=== PATIENT | female | born 1930 | race Caucasian/White ===

== ENCOUNTER 2016-07-28 09:04 | Emergency (ER) | payer MEDICARE ==
[2016-07-28 10:28] VITALS: BP 138/52
--- NOTE | 2016-07-28 11:43 | UC ---
Respiratory Complaint HPI - HPI Summary HPI Summary: PT WITH 4 DAYS OF CHEST CONGESTION, COUGH, SINUS PAIN, POST NASAL DRIP, ACHES AND MALAISE. SX STARTED WITH A SORE THROAT. NOW PT HAS CHEST PRESSURE, "LIKE AN ELEPHANT IS SITTING ON MY CHEST." DENIES N/V/ABD PAIN, NECK/JAW/ARM PAIN, SOB, DIZZINESS. - History of Current Complaint Chief Complaint: UCRespiratory Stated Complaint: COUGH,CHEST CONGESTION Time Seen by Provider: 07/28/16 10:33 Hx Obtained From: Patient Onset/Duration: Sudden Onset, Lasting Days - 4, Still Present Timing: Constant Severity Initially: Moderate Severity Currently: Moderate Pain Intensity: 4 Character: Cough: Productive Aggravating Factors: Exertion, Recumbent Position Alleviating Factors: Upright Position Associated Signs And Symptoms: Positive: Fever - SUNJECTIVE, Chills, URI, Sinus Discomfort. Negative: Dyspnea, Wheezing, Hemoptysis, Dizziness, Calf Pain, Calf Swelling, Edema, Nasal Congestion, Hoarseness - Risk Factors Cardiac Risk Factors: Hypertension, Family History - Allergies/Home Medications Allergies/Adverse Reactions: Allergies Allergy/AdvReac Type Severity Reaction Status Date / Time Nitrofurantoin Allergy Hives Verified 07/28/16 10:13 [From Macrobid] Penicillins Allergy Hives Verified 07/28/16 10:13 Phenobarbital Allergy Hives Verified 07/28/16 10:13 Sulfamethoxazole Allergy Hives Verified 07/28/16 10:13 w/Trimethoprim [From Bactrim] Home Medications: Home Medications Acetaminophen [Tylenol] 325 mg PO Q4H PRN 07/28/16 [History Confirmed 07/28/16] Ibuprofen [Advil] 200 mg PO Q4H PRN 07/28/16 [History Confirmed 07/28/16] Ketorolac Tromethamine (Ophth) [Acuvail] 0.45 % OP BID 07/28/16 [History Confirmed 07/28/16] prednisoLONE 1% OPHTH.SUSP* [Pred Forte 1%*] 1 drop .SEE ORDER BID 07/28/16 [ History Confirmed 07/28/16] PMH/Surg Hx/FS Hx/Imm Hx Endocrine History Of: Denies: Diabetes Cardiovascular History Of: Reports: Hypertension - Surgical History Surgical History: Yes Surgery Procedure, Year, and Place: YOUNG CHILD APPENDECTOMY [facility]. 1959 [facility]. 1974 [facility]OMY [facility]. 2011 LAMINE[facility]OMY [facility] [place]. eye surgery. shoulder RCT repair - Family History Known Family History: Positive: Cardiac Disease, Hypertension Negative: Diabetes - Social History Occupation: Retired Lives: With Family Alcohol Use: None Substance Use Type: None Smoking Status (MU): Never Smoked Tobacco Have You Smoked in the Last Year: No - Immunization History Most Recent Influenza Vaccination: 2016 Most Recent Tetanus Shot: 2011 Most Recent Pneumonia Vaccination: 2011 Review of Systems Constitutional: Fever - SUBJECTIVE, Chills Skin: Negative Eyes: Negative ENT: Other - SINUS PAIN Respiratory: Cough Cardiovascular: Chest Pain Gastrointestinal: Negative Genitourinary: Negative Motor: Negative Neurovascular: Negative Musculoskeletal: Negative Neurological: Negative Psychological: Negative All Other Systems Reviewed And Are Negative: Yes Physical Exam Triage Information Reviewed: Yes Appearance: Well-Appearing, No Pain Distress, Well-Nourished Vital Signs: Initial Vital Signs Temp 97.9 F 07/28/16 10:18 Pulse 71 07/28/16 10:18 Resp 20 07/28/16 10:18 BP 138/52 07/28/16 10:18 Pulse Ox 100 07/28/16 10:18 Vital Signs Reviewed: Yes Eye Exam: Normal Eyes: Negative: Conjunctiva Clear, Discharge ENT: Positive: Hearing grossly normal, Nasal drainage, TMs normal, Other: - SINUS TENDERNESS RT MAXILLARY SINUS. Negative: Pharynx normal, Pharyngeal erythema, Nasal congestion, Tonsillar swelling, Tonsillar exudate, Trismus, Muffled/hoarse voice Neck exam: Normal Neck: Positive: Supple, Nontender, No Lymphadenopathy Respiratory: Positive: Lungs clear, Normal breath sounds, No respiratory distress, No accessory muscle use, Expiration - PROLONGED Cardiovascular: Positive: RRR, No Murmur Musculoskeletal Exam: Normal Neurological: Positive: Alert, Muscle Tone Normal Psychological: Positive: Age Appropriate Behavior Skin Exam: Normal UC Diagnostic Evaluation - Laboratory O2 Sat by Pulse Oximetry: 100 Respiratory Course/Dx - Differential Dx/Diagnosis Differential Diagnosis/HQI/PQRI: Bronchitis, Exacerbation Of COPD, Lower Resp Infection, Sinusitis, Other - URI, mi Provider Diagnoses: SINUSITIS, BRONCHOSPASM Discharge - Discharge Plan Condition: Stable Disposition: [facility]
== END 2016-07-28 11:42 | disposition short-term general hospital (02) ==
LOC: UCCORT 09:04
DX: J32.9 Chronic sinusitis, unspecified (principal); J98.01 Acute bronchospasm; Z88.1 Allergy status to other antibiotic agents; Z88.0 Allergy status to penicillin; Z88.8 Allergy status to other drugs, medicaments and biological substances; Z79.1 Long term (current) use of non-steroidal anti-inflammatories (NSAID); I10 Essential (primary) hypertension
CPT/HCPCS: 93005; 99213; G0463

== ENCOUNTER 2018-03-21 10:43 | Emergency (ER) | payer MEDICARE ==
--- OUTSIDE RECORDS SUMMARY | 2018-03-21 11:57 | XMS REPORT ---
:1930 External Reference #:[id number] Author Organization Robin Oscar M.D. Address [address] [place] [address] Phone [phone] Care Team Providers Name Role Phone Robin Oscar M.D. 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 Active Onset: 08/23/2015 Essential hypertension Jossie Mc PA Active Family History Date Family Member(s) Problem(s) Comments Father due to Cancer () Mother due to Cancer () First Brother due to CAD () Second Brother due to CAD () First Sister due to Cancer () Social History Type Date Description Comments Marital Status Has been 1 time Lives With Pt is Pets None Hand Dominance Right-Handed ETOH Use Never used alcohol Smoking 02/12/2017 Patient has never smoked Recreational Drug Use Negative For Never Used Drugs Daily Caffeine Does Not Consume Caffeine Tattoo/Piercing Negative For Tattoo Allergies, Adverse Reactions, Alerts Date Description Reaction Status Severity Comments 06/26/2011 Penicillin hives active 06/26/2011 Bactrim hives active 06/26/2011 Macrobid hives/ rash active 06/26/2011 Phenobarbital active Medications Medication Date Status Form Strength Qnty SIG Indications Ordering Provider Acyclovir 03/09/ Active Capsules 200mg 50cap 1 by mouth B02.9 2017 s five times Castellan a day Nini cardeans Acyclovir 03/09/ Active Tablets 800mg 30tab 1 tid B02.9 2017 s Nini Lucas [place] 02/16/ Active Misc -08/03" 1unit wheeled Robin Wheel2017 s anthony [place] Adjustment with Nini cardenas -08/03" glydes, use daily Multivitamins 01/28/ Active Capsules 90cap 1 by mouth 2017 s every day Maddison cardenas M.D. Calcium 1000 + D 01/28/ Active Tablets 1000-800mg 90tab 1 by Robin 2017 - s mouth, one Castellan with each osNini meal Aspir-81 06/26/ Active Tablets DR 81mg 90tab 1 by mouth 2010 s every day Castellan Nini cardenas Famciclovir 03/09/ Hx Tablets 500mg 21tab 1 by mouth B02.9 2017 three Castellan /14/ times a os, MEmilyDEmily 2018 day Prednisone 01/12/ Hx Tablets 20mg 9tabs day 1and M54.5 2017 2 two Castellan 01/28/ tablets os, M.DEmily 2018 qd,then day3,4,5 one qd,the one half tabletday 6,7,8,9 Gabapentin 01/12/ Hx Capsules 300mg 90cap day number M54.5 Robin 2018 - s one pill, [place] 01/19/ day 2 one os, M.D. 2018 pill twice daily, then one pill three times daily Physical Therapy 12/02/ Hx PT for low Robin 2018 - back pain Castellan 01/28/ and os, M.D. 2018 radiculopa thy.Please evaluate and treat Metoclopramide 10/02/ Hx Tablets 5mg 42tab one tablet K21.9 Robin HCL 2017 - s three [place]an 03/23/ times a os, M.D. 2017 day as needed for nausea 30 minutes before meal Illotycin 06/10/ Hx 15Gra 1/2 inch H00.015 Robin Opthalmic 2016 - ms ribbon Castellan Ointment 08/13/ instilled os, M.DEmily 2017 in affected eyetwice a day for 5 days Levofloxacin 11/21/ Hx Tablets 500mg 7tabs 1 by mouth N39.0 Robin 2016 - every day [place]an 12/24/ os, M.D. 2016 Levofloxacin 10/01/ Hx Tablets 500mg 7tabs 1 by mouth N39.0 Robin 2016 - every day Cast[place]an 11/15/ os, M.DEmily 2016 Simvastatin 06/07/ Hx Tablets 10mg 90tab Take 1 Robin 2014 Leo s Tablet By Castellan 01/28/ Mouth os, M.DEmily 2018 Every Day Lipitor 06/06/ Hx Tablets 5mgM 30tab 1 by mouth Robin lundberg every day Castellan 06/06/ at supper os, M.DEmily 2014 Zocor 06/06/ Hx Tablets 10mgM 90tab 1 every at Robin Reed - s bedtime Castellan 02/10/ os, M.DEmily 2016 Omeprazole 06/06/ Hx Capsules 20mg 60cap Take [address] s Capsule By Castellan 01/28/ Mouth os, M.DEmily 2018 Twice Daily Oxycodone HCL 05/07/ Hx Capsules 5mg 1/2 to 1 M54.2 Robin 2014 - tablet Castellan 06/19/ every 4 to os, M.DEmily 2014 6 hour as needed for pain Prednisone 03/08/ Hx Tablets 20mg 9tabs day 1and M54.2 Robin 2014 - 2 two Castellan 05/01/ tablets os, M.D. 2014 qd,then day3,4,5 one qd,the one half tabletday 6,7,8,9 Gabapentin 03/08/ Hx Capsules 100mg 30cap one at M54.2 Robin 2014 - s bedtime Castellan 05/13/ os, M.D. 2016 Zithromax 05/30/ Hx Tablets 250mg 6tabs day number 478.9 Robin 2013 - two Castellan 08/10/ qd,thenday os, M.D. 2014 s two thru five one pill every day Simvastatin 11/16/ Hx Tablets 10mg 90tab take 1 Robin 2013 - s tablet by Castellan 06/06/ mouth os, M.D. 2014 every day Tramadol HCL 10/13/ Hx Tablets 50mg 90tab one pll Robin 2013 - s three [place]an 06/06/ times a os, M.D. 2014 day prn pain [facility] Omeprazole 10/13/ Hx Tablets DR 20mg 180ta 1 By Mouth K21.0 Robin 2013 - bs Twice A Castellan 11/15/ Day os, M.D. 2015 Zofran 05/05/ Hx Tablets 8mg 10tab One bid 530.11 Robin 2012 - s prn Nausea Castellan 07/13/ os, M.D. 2012 Doxycycline 04/28/ Hx Capsules 100mg 14cap 1 po bid Robin Edmondclimelda 2012 - s Cast[place]an 05/05/ os, M.DEmily 2012 Cipro 04/13/ Hx Tablets 500mg 20tab 1 po bid 599.89 Robin 2012 - s [place] 05/05/ os, M.D. 2012 Simvastatin 06/25/ Hx Tablets 10mg 90tab Take 1 Robin 2011 - s Tablet By Castellan 07/13/ Mouth os, M.D. 2012 Every Day Zocor 02/19/ Hx Tablets 10mg 90tab one 272.4 Robin 2011 - s evening qd Castellan 06/06/ os, M.D. 2014 Minocin 08/07/ Hx Solution 100mg 20uni one bid Robin 2012 - Rec ts Castellan 02/03/ os, M.DEmily 2011 Zocor 08/07/ Hx Tablets 40mg 30tab one q 272.4 2011 evening Castellan 02/19/ os, M.D. 2011 Tramadol 07/30/ Hx Tablet 50mg 30tab one four 2011 times Castellan 10/13/ daily as os, M.D. 2013 needed for pain Mobic 07/17/ Hx 7.5mg 30uni one qd Robin 2010 - [place]ellan 08/07/ os, M.D. 2011 Tylenol With 07/17/ Hx Tablets #3 20tab one tablet Robin Codeine #3 2010 - every 6 Castellan 08/07/ hours for os, M.D. 2011 pain Calcium 600 06/26/ Hx Tablets 600mg 2010 Castellan 06/06/ os, M.D. 2014 Prilosec OTC 06/26/ Hx Tablets DR 20mg 180ta one bid Robin 2010 Castellan 05/05/ os, M.D. 2012 Zocor / Hx Capsules 40mg 272.4 Unknown 0000 - DR 2011 Crestor / Hx Tablets 5mg Unknown 0000 - 2010 Verapamil HCL ER / Hx Tablets ER 240mg 90tab [facility] 2014 Ventolin HFA / Hx Aerosol 108(90Base Inhale 1-2 Unknown 0000 - ) mcg/Act Puffs PO Q 01/28/ 4-6 H PRF 2018 SOB Prednisone / Hx Tablets 10mg Unknown - 2016 Erythromycin / Hx Tablets 500mg Unknown Base 2016 Neomycin Sulfate / Hx Tablets 500mg Unknown - 2016 Lisinopril / Hx Tablets 2.5mg 90tab Take 1 Tablet By Castellan 01/28/ Mouth os, M.D. 2018 Every Day Allopurinol / Hx Tablets 100mg 90tab One Every - s Day Castellan 01/28/ os, M.D. 2017 Medications Administered in Office Medication Date Status Form Strength Qnty SIG Indications Ordering Provider Arthr.Inj.join Administered Injection Jossie Mc t shldr, hip, 015 PA knee Inj. Administered Injection Robin Ceftriaxone 998 Oscar Sodium Per , M.D. 250MG - Rocephin Inj. Administered Injection Robin Ceftriaxone 998 Oscar Sodium Per , M.D. 250MG - Rocephin Inj. Administered Injection Robni Ceftriaxone 998 Scott, Sodium Per P.A. 250MG - Rocephin Inj. Administered Injection Robin Ceftriaxone 998 Scott, Sodium Per P.A. 250MG - Rocephin Inj. Administered Injection Robin Ceftriaxone 998 Scott, Sodium Per P.A. 250MG - Rocephin Immunizations CPT Code Status Date Vaccine Reaction Lot # [id number] Given 01/28/2018 Tdap Vaccine over 7 Tdap [id number] yrs old 15851 Given 03/23/2017 Prevnar 13 risk & benefits Prevnar 13 [id number] discussed 87153 Given 03/23/2017 Flu High Dose risk & benefits Flu HD syr Vaccine discussed [id number] 06155 Given 05/13/2016 Flu High Dose risk & benefits Hidose flu [id number] Vaccine discussed p 11907 Given 03/29/2015 Flu High Dose risk & benefits Hi/dose/flu Vaccine discussed [id number] 83252 Given 05/10/2014 Flu High Dose High do Flu Vaccine [id number] 85771 Given 04/13/2013 Flu High Dose risk & benefits High doseflu Vaccine discussed [id number] 56676 Given 04/12/2012 Flu High Dose High dose [id number] Vaccine 57761 Given 03/19/2011 Flu Triv Old Code 12707 Given 04/30/1999 Influenza Virus Vaccine 00237 Given 05/17/1997 Influenza Virus Vaccine 31017 Given 01/26/1997 Tetanus Toxoid 37815 Given 06/23/1995 Influenza Virus Vaccine 02471 Given 04/17/1994 Influenza Virus Vaccine 33379 Given 05/03/1993 Influenza Virus Vaccine Vital Signs Date Vital Result Comment 03/09/2018 Weight 144.00 lb BP Systolic 144 mmHg BP Diastolic 88 mmHg 01/28/2018 Weight 143.00 lb BP Systolic 122 mmHg BP Diastolic 66 mmHg Height 61 inches 5'1" Heart Rate 74 /min O2 % BldC Oximetry 97 % room air Respiratory Rate 16 /min BMI (Body Mass Index) 27.0 kg/m2 01/19/2018 Weight 144.00 lb BP Systolic 122 mmHg BP Diastolic 64 mmHg Heart Rate 57 /min O2 % BldC Oximetry 97 % room air Respiratory Rate 16 /min 01/12/2018 Weight 143.00 lb BP Systolic 118 mmHg BP Diastolic 76 mmHg 11/10/2017 Weight 144.00 lb BP Systolic 120 mmHg BP Diastolic 68 mmHg 08/04/2017 BP Systolic 120 mmHg BP Diastolic 78 mmHg 08/04/2017 Weight 146.00 lb w boots 05/14/2017 Weight 138.00 lb BP Systolic 112 mmHg BP Diastolic 70 mmHg 03/23/2017 Weight 141.00 lb BP Systolic 118 mmHg BP Diastolic 70 mmHg 02/12/2017 Weight 154.00 lb BP Systolic 122 mmHg BP Diastolic 70 mmHg Height 60.50 inches 5'0.50" Heart Rate 64 /min Body Temperature 97.9 F Respiratory Rate 16 /min BMI (Body Mass Index) 29.6 kg/m2 10/28/2016 Weight 153.00 lb BP Systolic 120 mmHg BP Diastolic 78 mmHg 10/16/2016 Weight 146.00 lb BP Systolic 118 mmHg BP Diastolic 70 mmHg 10/02/2016 Weight 149.00 lb BP Systolic 120 mmHg BP Diastolic 80 mmHg 08/12/2016 Weight 146.00 lb BP Systolic 120 mmHg BP Diastolic 60 mmHg 06/10/2016 Weight 145.00 lb BP Systolic 122 mmHg BP Diastolic 70 mmHg Heart Rate 60 /min 02/11/2016 Weight 144.00 lb BP Systolic 120 mmHg BP Diastolic 70 mmHg Height 60.6 inches 5'0.60" Heart Rate 60 /min Body Temperature 98.8 F Respiratory Rate 12 /min BMI (Body Mass Index) 27.6 kg/m2 12/25/2015 Weight 146.00 lb 11/22/2015 Weight 144.00 lb BP Systolic 124 mmHg BP Diastolic 78 mmHg 07/24/2015 Weight 141.00 lb 07/05/2015 Weight 130.00 lb BP Systolic 120 mmHg BP Diastolic 70 mmHg 06/19/2015 Weight 134.00 lb BP Systolic 124 mmHg BP Diastolic 68 mmHg 06/06/2015 Weight 129.00 lb BP Systolic 120 mmHg BP Diastolic 70 mmHg 05/07/2015 Weight 142.00 lb BP Systolic 124 mmHg BP Diastolic 70 mmHg 05/01/2015 Weight 139.00 lb BP Systolic 140 mmHg BP Diastolic 68 mmHg 03/08/2015 Weight 131.00 lb BP Systolic 110 mmHg BP Diastolic 66 mmHg 02/07/2015 Weight 135.00 lb BP Systolic 112 mmHg BP Diastolic 70 mmHg Height 61 inches 5'1" Heart Rate 60 /min Body Temperature 98.0 F Respiratory Rate 14 /min BMI (Body Mass Index) 25.5 kg/m2 11/08/2014 Weight 137.00 lb BP Systolic 118 mmHg BP Diastolic 74 mmHg Height 61 inches 5'1" BMI (Body Mass Index) 25.9 kg/m2 08/10/2014 Weight 140.00 lb BP Systolic 118 mmHg BP Diastolic 80 mmHg 05/30/2014 Weight 139.00 lb BP Systolic 128 mmHg BP Diastolic 76 mmHg Body Temperature 98.9 F 05/10/2014 Weight 140.00 lb BP Systolic 120 mmHg BP Diastolic 72 mmHg 02/06/2014 BP Systolic 138 mmHg BP Diastolic 84 mmHg 02/06/2014 Weight 138.00 lb BP Systolic 154 mmHg BP Diastolic 78 mmHg Height 61.6 inches 5'1.60" Heart Rate 60 /min Body Temperature 98.0 F Respiratory Rate 14 /min BMI (Body Mass Index) 25.6 kg/m2 01/11/2014 Weight 143.00 lb BP Systolic 130 mmHg BP Diastolic 70 mmHg 10/13/2013 Weight 147.00 lb BP Systolic 130 mmHg BP Diastolic 80 mmHg Height 62 inches 5'2" BMI (Body Mass Index) 26.9 kg/m2 07/13/2013 Weight 154.00 lb w boots BP Systolic 130 mmHg BP Diastolic 80 mmHg 06/13/2013 Weight 154.00 lb BP Systolic 140 mmHg BP Diastolic 80 mmHg 05/05/2013 Weight 158.00 lb BP Systolic 130 mmHg BP Diastolic 78 mmHg 04/27/2013 Weight 151.00 lb BP Systolic 140 mmHg BP Diastolic 80 mmHg 04/13/2013 Weight 158.00 lb BP Systolic 130 mmHg BP Diastolic 80 mmHg Body Temperature 98.8 F 02/03/2013 Weight 155.00 lb BP Systolic 130 mmHg BP Diastolic 60 mmHg Height 62 inches 5'2" Heart Rate 64 /min Body Temperature 98.4 F Respiratory Rate 12 /min BMI (Body Mass Index) 28.3 kg/m2 09/21/2012 Weight 157.00 lb BP Systolic 150 mmHg BP Diastolic 90 mmHg 02/20/2012 Weight 163.00 lb BP Systolic 120 mmHg BP Diastolic 70 mmHg Height 65 inches 5'5" Heart Rate 73 /min Body Temperature 98.8 F O2 % BldC Oximetry 98 % BMI (Body Mass Index) 27.1 kg/m2 02/03/2012 Weight 163.00 lb BP Systolic 128 mmHg BP Diastolic 68 mmHg Height 65 inches 5'5" Heart Rate 60 /min Body Temperature 98.6 F Respiratory Rate 14 /min BMI (Body Mass Index) 27.1 kg/m2 08/07/2011 Weight 161.00 lb BP Systolic 118 mmHg BP Diastolic 60 mmHg Body Temperature 96.9 F 07/30/2011 Weight 161.00 lb BP Systolic 134 mmHg BP Diastolic 80 mmHg 07/17/2011 Weight 161.00 lb BP Systolic 140 mmHg BP Diastolic 80 mmHg 06/26/2011 Weight 161.00 lb BP Systolic 120 mmHg BP Diastolic 80 mmHg Results Test Date Test Result H/L Range Note Slide Review 01/28/2018 Slide Review (SEE NOTE) 1, 2 LDL Cholesterol Profile 01/28/2018 Cholesterol 165 mg/dL <200 1, 3 Triglycerides 272 mg/dL High <150 1, 4 HDL Cholesterol 51 mg/dL >40 1, 5 LDL-Cholesterol 60 mg/dL < 100 1, 6 Comprehensive Metabolic Panel 01/28/2018 Glucose 84 mg/dL 74-106 1 BUN 14 mg/dL 7-18 1 Creatinine 1.0 mg/dL 0.6-1.3 1 Glom Filtration Rate, Estimate 56 mL/min >60 1 If >60 mL/min >60 1, 7 BUN/Creat 14.0 ratio 1 Sodium 142 mmol/L 136-145 1 Potassium 4.2 mmol/L 3.5-5.1 1 Chloride 110 mmol/L High 98-107 1 Carbon Dioxide 26 mmol/L 21-32 1 Anion Gap 6 mEq/L Low 8-16 1 Calcium 8.7 mg/dL 8.5-10.1 1 Total Protein 7.4 g/dL 6.4-8.2 1 Albumin 3.6 g/dL 3.4-5.0 1 Globulin 3.8 g/dL 1.9-4.3 1 Alb/Glob 0.9 ratio 1 Bilirubin,Total 0.5 mg/dL 0.2-1.0 1 Sgot/Ast 18 U/L 15-37 1 SGPT/Alt 21 U/L 12-78 1 Alkaline Phosphatase 70 U/L 45-117 1 CBS W/Automated Diff 01/28/2018 White Blood Count 12.1 K/uL High 3.1-10.7 1 Red Blood Count 3.72 M/uL Low 3.90-5.40 1 Hemoglobin 10.7 gm/dL Low 11.6-15.8 1 Hematocrit 34.2 % Low 36.0-46.1 1 Mean Cell Volume 91.9 fl 80.9-99.0 1 Mean Corpuscular HGB 28.8 pg 25.9-32.7 1 Mean Corpuscular HGB Conc 31.3 g/dL 30.8-34.3 1 Platelet Count 243 K/uL 155-360 1 Red Cell Distri Width SD 52.9 fl High 3-47 1 Red Cell Distri Width %CV 16.3 % High 11.7-14.4 1 Mean Platelet Volume 11.4 fL 8.9-12.4 1 Neut% 69.8 % 40.4-72.8 1 Lymph % 22.1 % 20.0-42.0 1 [place] % 6.8 % 4.3-13.2 1 Eo% 1.2 % 0.0-6.6 1 Bas% 0.1 % 0.0-1.1 1 Neut# 8.47 K/uL High 1.8-7.0 1 Lymph # 2.68 K/uL 1.0-4.0 1 [place] # 0.83 K/uL 0.3-0.9 1 Eos # 0.14 K/uL 0.0-0.5 1 Baso # 0.01 K/uL 0.0-0.1 1 Laboratory test 01/28/2018 Uric Acid 5.0 mg/dL 2.6-6.0 1 finding Laboratory test 11/10/2017 Urine Culture And SEE RESULT 8, 9 finding Sensitivities BELOW CBS W/Automated Diff 09/15/2017 White Blood Count 10.4 K/uL 3.1-10.7 10 Red Blood Count 3.82 M/uL Low 3.90-5.40 10 Hemoglobin 11.3 gm/dL Low 11.6-15.8 10 Hematocrit 36.0 % 36.0-46.1 10 Mean Cell Volume 94.2 fl 80.9-99.0 10 Mean Corpuscular HGB 29.6 pg 25.9-32.7 10 Mean Corpuscular HGB Conc 31.4 g/dL 30.8-34.3 10 Platelet Count 258 K/uL 155-360 10 Red Cell Distri Width SD 65.4 fl High 3-47 10 Red Cell Distri Width %CV 19.7 % High 11.7-14.4 10 Mean Platelet Volume 11.4 fL 8.9-12.4 10 Neut% 72.6 % 40.4-72.8 10 Lymph % 20.1 % 20.0-42.0 10 [place] % 5.4 % 4.3-13.2 10 Eo% 1.6 % 0.0-6.6 10 Bas% 0.3 % 0.0-1.1 10 Neut# 7.57 K/uL High 1.8-7.0 10 Lymph # 2.09 K/uL 1.0-4.0 10 [place] # 0.56 K/uL 0.3-0.9 10 Eos # 0.17 K/uL 0.0-0.5 10 Baso # 0.03 K/uL 0.0-0.1 10 Comprehensive Metabolic Panel 09/15/2017 Glucose 113 mg/dL High 74-106 10 BUN 32 mg/dL High 7-18 10 Creatinine 1.1 mg/dL 0.6-1.3 10 Glom Filtration Rate, Estimate 50 mL/min >60 10 If >60 mL/min >60 10, 11 BUN/Creat 29.0 ratio 10 Sodium 144 mmol/L 136-145 10 Potassium 4.4 mmol/L 3.5-5.1 10 Chloride 112 mmol/L High 98-107 10 Carbon Dioxide 23 mmol/L 21-32 10 Anion Gap 9 mEq/L 8-16 10 Calcium 9.5 mg/dL 8.5-10.1 10 Total Protein 7.7 g/dL 6.4-8.2 10 Albumin 3.8 g/dL 3.4-5.0 10 Globulin 3.9 g/dL 1.9-4.3 10 Alb/Glob 1.0 ratio 10 Bilirubin,Total 0.5 mg/dL 0.2-1.0 10 Sgot/Ast 16 U/L 15-37 10 SGPT/Alt 15 U/L 12-78 10 Alkaline Phosphatase 68 U/L 45-117 10 Slide Review 09/15/2017 Slide Review (SEE NOTE) 10, 12 Iron-Tibc-%Sat 09/15/2017 Serum Iron 73 g/dL 50-170 10 Total Iron Binding Capacity 409 g/dL 250-450 10 Transferrin %Saturation 18 % 12-57 10 Laboratory test finding 09/15/2017 Ferritin 148 ng/mL 8-252 10 CBS W/Automated Diff 08/15/2017 White Blood Count 8.1 K/uL 3.1-10.7 13 Red Blood Count 3.94 M/uL 3.90-5.40 13 Hemoglobin 11.1 gm/dL Low 11.6-15.8 13 Hematocrit 35.3 % Low 36.0-46.1 13 Mean Cell Volume 89.6 fl 80.9-99.0 13 Mean Corpuscular HGB 28.2 pg 25.9-32.7 13 Mean Corpuscular HGB Conc 31.4 g/dL 30.8-34.3 13 Platelet Count 273 K/uL 155-360 13 Red Cell Distri Width SD 52.6 fl High 3-47 13 Red Cell Distri Width %CV 16.4 % High 11.7-14.4 13 Mean Platelet Volume 10.4 fL 8.9-12.4 13 Neut% 65.8 % 40.4-72.8 13 Lymph % 24.1 % 20.0-42.0 13 [place] % 7.7 % 4.3-13.2 13 Eo% 2.2 % 0.0-6.6 13 Bas% 0.2 % 0.0-1.1 13 Neut# 5.30 K/uL 1.8-7.0 13 Lymph # 1.94 K/uL 1.0-4.0 13 [place] # 0.62 K/uL 0.3-0.9 13 Eos # 0.18 K/uL 0.0-0.5 13 Baso # 0.02 K/uL 0.0-0.1 13 Laboratory test finding 08/15/2017 Cea 7.5 ng/mL 13, 14 Iron-Tibc-%Sat 08/15/2017 Serum Iron 32 g/dL Low 50-170 13 Total Iron Binding Capacity 446 g/dL 250-450 13 Transferrin %Saturation 7 % Low 12-57 13 Laboratory test finding 08/15/2017 Ferritin 11 ng/mL 8-252 13 Comprehensive Metabolic Panel 08/15/2017 Glucose 117 mg/dL High 74-106 13 BUN 25 mg/dL High 7-18 13 Creatinine 1.0 mg/dL 0.6-1.3 13 Glom Filtration Rate, Estimate 56 mL/min >60 13 If >60 mL/min >60 13, 15 BUN/Creat 25.0 ratio 13 Sodium 143 mmol/L 136-145 13 Potassium 4.5 mmol/L 3.5-5.1 13 Chloride 109 mmol/L High 98-107 13 Carbon Dioxide 25 mmol/L 21-32 13 Anion Gap 9 mEq/L 8-16 13 Calcium 9.3 mg/dL 8.5-10.1 13 Total Protein 7.4 g/dL 6.4-8.2 13 Albumin 3.6 g/dL 3.4-5.0 13 Globulin 3.8 g/dL 1.9-4.3 13 Alb/Glob 0.9 ratio 13 Bilirubin,Total 0.3 mg/dL 0.2-1.0 13 Sgot/Ast 15 U/L 15-37 13 SGPT/Alt 18 U/L 12-78 13 Alkaline Phosphatase 70 U/L 45-117 13 Laboratory test finding 05/15/2017 Uric Acid 4.9 mg/dL 2.3-6.6 Hemoglobin A1c 6.2 % High 4.0-5.6 16 Slide Review 03/24/2017 Slide Review . 17, 18 Laboratory test finding 03/24/2017 Cea 6.5 ng/mL 17, 19 Iron-Tibc-%Sat 03/24/2017 Serum Iron 56 g/dL 50-170 17 Total Iron Binding Capacity 309 g/dL 250-450 17 Transferrin %Saturation 18 % 12-57 17 CBS W/Automated Diff 03/24/2017 White Blood Count 11.5 K/uL High 3.1-10.7 17 Red Blood Count 3.29 M/uL Low 3.90-5.40 17 Hemoglobin 10.2 gm/dL Low 11.6-15.8 17 Hematocrit 31.8 % Low 36.0-46.1 17 Mean Cell Volume 96.7 fl 80.9-99.0 17 Mean Corpuscular HGB 31.0 pg 25.9-32.7 17 Mean Corpuscular HGB Conc 32.1 g/dL 30.8-34.3 17 Platelet Count 262 K/uL 150-400 17 Red Cell Distri Width SD 53.8 fl High 3-47 17 Red Cell Distri Width %CV 15.7 % High 11.7-14.4 17 Mean Platelet Volume 11.4 fL 8.9-12.4 17 Neut% 74.1 % High 40.4-72.8 17 Lymph % 15.3 % Low 20.0-42.0 17 [place] % 7.6 % 4.3-13.2 17 Eo% 2.8 % 0.0-6.6 17 Bas% 0.2 % 0.0-1.1 17 Neut# 8.50 K/uL High 1.8-7.0 17 Lymph # 1.76 K/uL 1.0-4.0 17 [place] # 0.87 K/uL 0.3-0.9 17 Eos # 0.32 K/uL 0.0-0.5 17 Baso # 0.02 K/uL 0.0-0.1 17 Comprehensive Metabolic Panel 03/24/2017 Glucose 98 mg/dL 74-106 17 BUN 23 mg/dL High 7-18 17 Creatinine 1.5 mg/dL High 0.6-1.3 17 Glom Filtration Rate, Estimate 35 mL/min >60 17 If 42 mL/min >60 17, 20 BUN/Creat 15.3 ratio 17 Sodium 138 mmol/L 136-145 17 Potassium 4.8 mmol/L 3.5-5.1 17 Chloride 103 mmol/L 98-107 17 Carbon Dioxide 27 mmol/L 21-32 17 Anion Gap 8 mEq/L 8-16 17 Calcium 9.0 mg/dL 8.5-10.1 17 Total Protein 7.2 g/dL 6.4-8.2 17 Albumin 3.1 g/dL Low 3.4-5.0 17 Globulin 4.1 g/dL 1.9-4.3 17 Alb/Glob 0.8 ratio 17 Bilirubin,Total 0.5 mg/dL 0.2-1.0 17 Sgot/Ast 16 U/L 15-37 17 SGPT/Alt 19 U/L 12-78 17 Alkaline Phosphatase 89 U/L 45-117 17 Basic Metabolic Panel 03/02/2017 Glucose 109 mg/dL High 74-106 21 BUN 11 mg/dL 7-18 21 Creatinine 0.7 mg/dL 0.6-1.3 21 Glom Filtration Rate, Estimate >60 mL/min >60 21 If >60 mL/min >60 21, 22 BUN/Creat 15.7 ratio 21 Sodium 138 mmol/L 136-145 21 Potassium 3.6 mmol/L 3.5-5.1 21 Chloride 105 mmol/L 98-107 21 Carbon Dioxide 24 mmol/L 21-32 21 Anion Gap 9 mEq/L 8-16 21 Calcium 7.8 mg/dL Low 8.5-10.1 21 CBC 03/02/2017 White Blood Count 11.1 K/uL High 3.1-10.7 21 Red Blood Count 3.16 M/uL Low 3.90-5.40 21 Hemoglobin 10.0 gm/dL Low 11.6-15.8 21 Hematocrit 29.4 % Low 36.0-46.1 21 Mean Cell Volume 93.0 fl 80.9-99.0 21 Mean Corpuscular HGB 31.6 pg 25.9-32.7 21 Mean Corpuscular HGB Conc 34.0 g/dL 30.8-34.3 21 Platelet Count 212 K/uL 150-400 21 Red Cell Distri Width %CV 14.9 % High 11.7-14.4 21 Mean Platelet Volume 11.3 fL 8.9-12.4 21 Comprehensive Metabolic Panel 02/28/2017 Glucose 111 mg/dL High 74-106 21 BUN 9 mg/dL 7-18 21 Creatinine 0.9 mg/dL 0.6-1.3 21 Glom Filtration Rate, Estimate >60 mL/min >60 21 If >60 mL/min >60 21, 23 BUN/Creat 10.0 ratio 21 Sodium 139 mmol/L 136-145 21 Potassium 3.7 mmol/L 3.5-5.1 21 Chloride 107 mmol/L 98-107 21 Carbon Dioxide 25 mmol/L 21-32 21 Anion Gap 7 mEq/L Low 8-16 21 Calcium 8.0 mg/dL Low 8.5-10.1 21 Total Protein 5.5 g/dL Low 6.4-8.2 21 Albumin 2.5 g/dL Low 3.4-5.0 21 Globulin 3.0 g/dL 1.9-4.3 21 Alb/Glob 0.8 ratio 21 Bilirubin,Total 0.4 mg/dL 0.2-1.0 21 Sgot/Ast 16 U/L 15-37 21 SGPT/Alt 23 U/L 12-78 21 Alkaline Phosphatase 61 U/L 45-117 21 CBC 02/28/2017 White Blood Count 10.4 K/uL 3.1-10.7 21 Red Blood Count 3.34 M/uL Low 3.90-5.40 21 Hemoglobin 10.5 gm/dL Low 11.6-15.8 21 Hematocrit 31.9 % Low 36.0-46.1 21 Mean Cell Volume 95.5 fl 80.9-99.0 21 Mean Corpuscular HGB 31.4 pg 25.9-32.7 21 Mean Corpuscular HGB Conc 32.9 g/dL 30.8-34.3 21 Platelet Count 201 K/uL 150-400 21 Red Cell Distri Width %CV 15.5 % High 11.7-14.4 21 Mean Platelet Volume 11.4 fL 8.9-12.4 21 Aot Request 02/27/2017 Aot Request Already done 21, 24 Tests to be added: crp 21 Laboratory test 02/27/2017 C-Reactive 12.6 mg/L High <3.0 21 finding Protein,Quant Glycohemoglobin A1c 02/26/2017 Glycohemoglobin (A1c) 5.9 % 4.2-6.3 21, 25 eAG 123 mg/dL 21 Basic Metabolic Panel 02/26/2017 Glucose 186 mg/dL High 74-106 21 BUN 17 mg/dL 7-18 21 Creatinine 1.1 mg/dL 0.6-1.3 21 Glom Filtration Rate, Estimate 50 mL/min >60 21 If >60 mL/min >60 21, 26 BUN/Creat 15.4 ratio 21 Sodium 141 mmol/L 136-145 21 Potassium 4.5 mmol/L 3.5-5.1 21 Chloride 107 mmol/L 98-107 21 Carbon Dioxide 25 mmol/L 21-32 21 Anion Gap 9 mEq/L 8-16 21 Calcium 8.1 mg/dL Low 8.5-10.1 21 Laboratory test finding 02/26/2017 Magnesium 2.1 mg/dL 1.8-2.4 21 Urinalysis With Microscopic 02/26/2017 Urine Color YELLOW Yellow 21 Urine Clarity CLEAR Clear 21 Urine Glucose - Dipstick NEGATIVE mg/dL Negative 21 Urine Bilirubin - Dipstick NEGATIVE Negative 21 Urine Ketone NEGATIVE mg/dL Negative 21 Urine Specific [place] <=1.005 Low 1.010-1.030 21 Urine Blood NEGATIVE Negative 21 Urine PH 5.5 Low 6.5-7.5 21 Urine Protein - Dipstick NEGATIVE mg/dL Negative 21 Urine Urobilinogen - Dipstick 0.2 E.U./dL 0.2-1.0 21 Urine Nitrite - Dipstick NEGATIVE Negative 21 Urine Leuk Esterase TRACE Negative 21 Urine RBC NONE SEEN rbc/hpf 0-2 21 Urine WBC 0-2 wbc/hpf 0-7 21 Urine Epithelial Cells MODERATE /lpf None Seen , 27 Source: URINE, CLEAN CAT <SEE NOTE> , Laboratory test 02/26/2017 Urine Culture NO GROWTH: FINAL , finding <SEE NOTE> CBC 02/26/2017 White Blood Count 16.8 K/uL High 3.1-10.7 21 Red Blood Count 3.03 M/uL Low 3.90-5.40 21 Hemoglobin 9.6 gm/dL Low 11.6-15.8 21 Hematocrit 28.6 % Low 36.0-46.1 21 Mean Cell Volume 94.4 fl 80.9-99.0 21 Mean Corpuscular HGB 31.7 pg 25.9-32.7 21 Mean Corpuscular HGB Conc 33.6 g/dL 30.8-34.3 21 Platelet Count 197 K/uL 150-400 21 Red Cell Distri Width %CV 15.0 % High 11.7-14.4 21 Mean Platelet Volume 11.0 fL 8.9-12.4 21 Basic Metabolic Panel 02/25/2017 Glucose 303 mg/dL High 74-106 21 BUN 18 mg/dL 7-18 21 Creatinine 1.3 mg/dL 0.6-1.3 21 Glom Filtration Rate, Estimate 41 mL/min >60 21 If 50 mL/min >60 21, 30 BUN/Creat 13.8 ratio 21 Sodium 140 mmol/L 136-145 21 Potassium 4.6 mmol/L 3.5-5.1 21 Chloride 106 mmol/L 98-107 21 Carbon Dioxide 23 mmol/L 21-32 21 Anion Gap 11 mEq/L 8-16 21 Calcium 8.0 mg/dL Low 8.5-10.1 21 CBS W/Automated Diff 02/25/2017 White Blood Count 15.2 K/uL High 3.1-10.7 21 Red Blood Count 3.24 M/uL Low 3.90-5.40 21 Hemoglobin 10.3 gm/dL Low 11.6-15.8 21 Hematocrit 30.5 % Low 36.0-46.1 21 Mean Cell Volume 94.1 fl 80.9-99.0 21 Mean Corpuscular HGB 31.8 pg 25.9-32.7 21 Mean Corpuscular HGB Conc 33.8 g/dL 30.8-34.3 21 Platelet Count 203 K/uL 150-400 21 Red Cell Distri Width SD 47.2 fl High 3-47 21 Red Cell Distri Width %CV 14.4 % 11.7-14.4 21 Mean Platelet Volume 11.0 fL 8.9-12.4 21 Neut% 93.1 % High 40.4-72.8 21 Lymph % 2.9 % Low 20.0-42.0 21 [place] % 4.0 % Low 4.3-13.2 21 Eo% 0.0 % 0.0-6.6 21 Bas% 0.0 % 0.0-1.1 21 Neut# 14.15 K/uL High 1.8-7.0 21 Lymph # 0.44 K/uL Low 1.0-4.0 21 [place] # 0.61 K/uL 0.3-0.9 21 Eos # 0.00 K/uL 0.0-0.5 21 Baso # 0.00 K/uL 0.0-0.1 21 Slide Review 02/25/2017 Slide Review . 21, 31 Laboratory test finding 02/24/2017 Phosphorous 2.9 mg/dL 2.5-4.0 21 Magnesium 2.2 mg/dL 1.8-2.4 21 CBC 02/24/2017 White Blood Count 15.9 K/uL High 3.1-10.7 21 Red Blood Count 3.69 M/uL Low 3.90-5.40 21 Hemoglobin 11.9 gm/dL 11.6-15.8 21 Hematocrit 35.2 % Low 36.0-46.1 21 Mean Cell Volume 95.4 fl 80.9-99.0 21 Mean Corpuscular HGB 32.2 pg 25.9-32.7 21 Mean Corpuscular HGB Conc 33.8 g/dL 30.8-34.3 21 Platelet Count 246 K/uL 150-400 21 Red Cell Distri Width %CV 14.7 % High 11.7-14.4 21 Mean Platelet Volume 10.7 fL 8.9-12.4 21 Comprehensive Metabolic Panel 02/24/2017 Glucose 180 mg/dL High 74-106 21 BUN 19 mg/dL High 7-18 21 Creatinine 1.1 mg/dL 0.6-1.3 21 Glom Filtration Rate, Estimate 50 mL/min >60 21 If >60 mL/min >60 21, 32 BUN/Creat 17.2 ratio 21 Sodium 138 mmol/L 136-145 21 Potassium 3.5 mmol/L 3.5-5.1 21 Chloride 103 mmol/L 98-107 21 Carbon Dioxide 27 mmol/L 21-32 21 Anion Gap 8 mEq/L 8-16 21 Calcium 8.3 mg/dL Low 8.5-10.1 21 Total Protein 6.3 g/dL Low 6.4-8.2 21 Albumin 2.9 g/dL Low 3.4-5.0 21 Globulin 3.4 g/dL 1.9-4.3 21 Alb/Glob 0.9 ratio 21 Bilirubin,Total 0.9 mg/dL 0.2-1.0 21 Sgot/Ast 50 U/L High 15-37 21 SGPT/Alt 36 U/L 12-78 21 Alkaline Phosphatase 76 U/L 45-117 21 CBS W/Automated Diff 01/28/2017 White Blood Count 10.2 K/uL 3.1-10.7 33 Red Blood Count 4.19 M/uL 3.90-5.40 33 Hemoglobin 13.2 gm/dL 11.6-15.8 33 Hematocrit 39.8 % 36.0-46.1 33 Mean Cell Volume 95.0 fl 80.9-99.0 33 Mean Corpuscular HGB 31.5 pg 25.9-32.7 33 Mean Corpuscular HGB Conc 33.2 g/dL 30.8-34.3 33 Platelet Count 245 K/uL 150-400 33 Red Cell Distri Width SD 52.0 fl High 3-47 33 Red Cell Distri Width %CV 15.2 % High 11.7-14.4 33 Mean Platelet Volume 11.4 fL 8.9-12.4 33 Neut% 67.7 % 40.4-72.8 33 Lymph % 24.7 % 20.0-42.0 33 [place] % 6.3 % 4.3-13.2 33 Eo% 1.1 % 0.0-6.6 33 Bas% 0.2 % 0.0-1.1 33 Neut# 6.93 K/uL 1.8-7.0 33 Lymph # 2.52 K/uL 1.0-4.0 33 [place] # 0.64 K/uL 0.3-0.9 33 Eos # 0.11 K/uL 0.0-0.5 33 Baso # 0.02 K/uL 0.0-0.1 33 Iron-Tibc-%Sat 01/28/2017 Serum Iron 81 g/dL 50-170 33 Total Iron Binding Capacity 403 g/dL 250-450 33 Transferrin %Saturation 20 % 12-57 33 Laboratory test finding 01/28/2017 Ferritin 28 ng/mL 8-252 33 Comprehensive Metabolic Panel 01/28/2017 Glucose 102 mg/dL 74-106 33 BUN 15 mg/dL 7-18 33 Creatinine 1.0 mg/dL 0.6-1.3 33 Glom Filtration Rate, Estimate 56 mL/min >60 33 If >60 mL/min >60 33, 34 BUN/Creat 15.0 ratio 33 Sodium 142 mmol/L 136-145 33 Potassium 4.4 mmol/L 3.5-5.1 33 Chloride 106 mmol/L 98-107 33 Carbon Dioxide 28 mmol/L 21-32 33 Anion Gap 8 mEq/L 8-16 33 Calcium 9.7 mg/dL 8.5-10.1 33 Total Protein 7.7 g/dL 6.4-8.2 33 Albumin 3.6 g/dL 3.4-5.0 33 Globulin 4.1 g/dL 1.9-4.3 33 Alb/Glob 0.9 ratio 33 Bilirubin,Total 0.8 mg/dL 0.2-1.0 33 Sgot/Ast 24 U/L 15-37 33 SGPT/Alt 18 U/L 12-78 33 Alkaline Phosphatase 83 U/L 45-117 33 Xray 10/22/2016 CT of abdomen and pelvis <pending> Basic Metabolic Panel 10/16/2016 Sodium 139 mmol/L 133-145 Potassium 4.4 mmol/L 3.5-5.0 Chloride 104 mmol/L 101-111 Co2 Carbon Dioxide 28 mmol/L 22-32 Anion Gap 7 mmol/L 2-11 Glucose 98 mg/dL 70-100 Blood Urea Nitrogen 21 mg/dL 6-24 Creatinine 1.29 mg/dL High 0.51-0.95 BUN/Creatinine Ratio 16.3 8-20 Calcium 9.9 mg/dL 8.6-10.3 Egfr Non- 39.4 >60 Egfr 50.6 >60 35 CBC Auto Diff 10/16/2016 White Blood Count 12.2 10^3/uL High 3.5-10.8 Red Blood Count 4.25 10^6/uL 4.0-5.4 Hemoglobin 12.9 g/dL 12.0-16.0 Hematocrit 40 % 35-47 Mean Corpuscular Volume 93 fL 80-97 Mean Corpuscular Hemoglobin 30 pg 27-31 Mean Corpuscular HGB Conc 33 g/dL 31-36 Red Cell Distribution Width 15 % 10.5-15 Platelet Count 214 10^3/uL 150-450 Mean Platelet Volume 9 um3 7.4-10.4 Abs Neutrophils 7.6 10^3/uL 1.5-7.7 Abs Lymphocytes 3.5 10^3/uL 1.0-4.8 Abs Monocytes 0.9 10^3/uL High 0-0.8 Abs Eosinophils 0.2 10^3/uL 0-0.6 Abs Basophils 0.1 10^3/uL 0-0.2 Abs Nucleated RBC 0.02 10^3/uL Granulocyte % 62.3 % 38-83 Lymphocyte % 28.5 % 25-47 Monocyte % 7.2 % 1-9 Eosinophil % 1.4 % 0-6 Basophil % 0.6 % 0-2 Nucleated Red Blood Cells % 0.2 Liver Function Panel 10/16/2016 Total Protein 7.2 g/dL 6.4-8.9 Albumin 4.4 g/dL 3.2-5.2 Globulin 2.8 g/dL 2-4 Albumin/Globulin Ratio 1.6 1-3 Total Bilirubin 0.60 mg/dL 0.2-1.0 Direct Bilirubin 0.10 mg/dL 0.03-0.18 Indirect Bilirubin 0.5 mg/dL 0.3-1.0 Alkaline Phosphatase 67 U/L 34-104 Alt 9 U/L 7-52 Ast 17 U/L 13-39 CBS W/Automated Diff 07/28/2016 White Blood Count 7.2 K/uL 3.1-10.7 36 Red Blood Count 4.41 M/uL 3.90-5.40 36 Hemoglobin 13.4 gm/dL 11.6-15.8 36 Hematocrit 41.4 % 36.0-46.1 36 Mean Cell Volume 93.9 fl 80.9-99.0 36 Mean Corpuscular HGB 30.4 pg 25.9-32.7 36 Mean Corpuscular HGB Conc 32.4 g/dL 30.8-34.3 36 Platelet Count 226 K/uL 155-360 36 Red Cell Distri Width SD 51.6 fl High 3-47 36 Red Cell Distri Width %CV 15.3 % High 11.7-14.4 36 Mean Platelet Volume 10.6 fL 8.9-12.4 36 Neut% 62.2 % 40.4-72.8 36 Lymph % 26.0 % 17.0-46.1 36 [place] % 9.5 % 4.3-13.2 36 Eo% 2.0 % 0.0-6.6 36 Bas% 0.3 % 0.0-1.1 36 Neut# 4.46 K/uL 1.8-7.0 36 Lymph # 1.86 K/uL 1.8-7.0 36 [place] # 0.68 K/uL 0.3-0.9 36 Eos # 0.14 K/uL 0.0-0.5 36 Baso # 0.02 K/uL 0.0-0.1 36 Comprehensive Metabolic Panel 07/28/2016 Glucose 108 mg/dL High 74-106 36 BUN 18 mg/dL 7-18 36 Creatinine 1.1 mg/dL 0.6-1.3 36 Glom Filtration Rate, Estimate 50 mL/min >60 36 If >60 mL/min >60 36, 37 BUN/Creat 16.3 ratio 36 Sodium 141 mmol/L 136-145 36 Potassium 4.0 mmol/L 3.5-5.1 36 Chloride 107 mmol/L 98-107 36 Carbon Dioxide 25 mmol/L 21-32 36 Anion Gap 9 mEq/L 8-16 36 Calcium 9.3 mg/dL 8.5-10.1 36 Total Protein 8.3 g/dL High 6.4-8.2 36 Albumin 3.7 g/dL 3.4-5.0 36 Globulin 4.6 g/dL High 1.9-4.3 36 Alb/Glob 0.8 ratio 36 Bilirubin,Total 0.7 mg/dL 0.2-1.0 36 Sgot/Ast 23 U/L 15-37 36 SGPT/Alt 21 U/L 12-78 36 Alkaline Phosphatase 93 U/L 45-117 36 Laboratory test finding 07/28/2016 CK 105 U/L 26-192 36 Troponin-I < 0.015 ng/mL 36, 38 Basic Metabolic Panel 11/23/2015 Glucose 108 mg/dL High 74-106 BUN 22 mg/dL High 7-18 Creatinine 1.0 mg/dL 0.6-1.3 Glom Filtration Rate, Estimate 56 mL/min >60 If >60 mL/min >60 39 BUN/Creat 22.0 ratio Sodium 141 mmol/L 136-145 Potassium 4.6 mmol/L 3.5-5.1 Chloride 106 mmol/L 98-107 Carbon Dioxide 26 mmol/L 21-32 Anion Gap 9 mEq/L 8-16 Calcium 9.2 mg/dL 8.5-10.1 CBC 11/23/2015 White Blood Count 10.2 K/uL 3.1-10.7 Red Blood Count 3.86 M/uL Low 3.90-5.40 Hemoglobin 12.1 gm/dL 11.6-15.8 Hematocrit 37.3 % 36.0-46.1 Mean Cell Volume 96.6 fl 80.9-99.0 Mean Corpuscular HGB 31.3 pg 25.9-32.7 Mean Corpuscular HGB Conc 32.4 g/dL 30.8-34.3 Platelet Count 261 K/uL 155-360 Red Cell Distri Width %CV 16.0 % High 11.7-14.4 Mean Platelet Volume 10.4 fL 8.9-12.4 Laboratory test finding 11/22/2015 Urine Culture See Note 40 Laboratory test finding 10/15/2015 Urine Culture See Note 41 Laboratory test finding 09/25/2015 Urine Culture See Note 42 Laboratory test finding 09/11/2015 Acromion/Acromio-Clavicula See Note 43 r JT CBC W/Automated Diff 08/13/2015 White Blood Count 9.1 K/uL 3.1-10.7 Red Blood Count 3.98 M/uL 3.90-5.40 Hemoglobin 12.6 gm/dL 11.6-15.8 Hematocrit 37.8 % 36.0-46.1 Mean Cell Volume 95.0 fl 80.9-99.0 Mean Corpuscular HGB 31.7 pg 25.9-32.7 Mean Corpuscular HGB Conc 33.3 g/dL 30.8-34.3 Platelet Count 230 K/uL 155-360 Red Cell Distri Width SD 53.3 fl High 3-47 Red Cell Distri Width %CV 15.9 % High 11.7-14.4 Mean Platelet Volume 10.6 fL 8.9-12.4 Neut% 64.7 % 40.4-72.8 Lymph % 27.3 % 17.0-46.1 [place] % 6.8 % 4.3-13.2 Eo% 1.0 % 0.0-6.6 Bas% 0.2 % 0.0-1.1 Neut# 5.91 K/uL 1.8-7.0 Lymph # 2.49 K/uL 1.8-7.0 [place] # 0.62 K/uL 0.3-0.9 Eos # 0.09 K/uL 0.0-0.5 Baso # 0.02 K/uL 0.0-0.1 Laboratory test finding 08/13/2015 CK 72 U/L 26-192 Troponin-I < 0.015 ng/mL 44 Comprehensive Metabolic Panel 08/13/2015 Glucose 125 mg/dL High 74-106 BUN 22 mg/dL High 7-18 Creatinine 0.9 mg/dL 0.6-1.3 Glom Filtration Rate, Estimate >60 mL/min >60 If >60 mL/min >60 45 BUN/Creat 24.4 ratio Sodium 139 mmol/L 136-145 Potassium 4.4 mmol/L 3.5-5.1 Chloride 106 mmol/L 98-107 Carbon Dioxide 24 mmol/L 21-32 Anion Gap 9 mEq/L 8-16 Calcium 9.0 mg/dL 8.5-10.1 Total Protein 7.4 g/dL 6.4-8.2 Albumin 3.7 g/dL 3.4-5.0 Globulin 3.7 g/dL 1.9-4.3 Alb/Glob 1.0 ratio Bilirubin,Total 0.5 mg/dL 0.2-1.0 Sgot/Ast 17 U/L 15-37 SGPT/Alt 19 U/L 12-78 Alkaline Phosphatase 73 U/L 45-117 Laboratory test finding 08/13/2015 D-Dimer, Quantitative 1.01 ug/mL High 46 Xray 07/11/2015 MRI of left shoulder <pending> CBC No Diff 05/07/2015 White Blood Count 9.9 10^3/uL 4.8-10.8 47 Red Blood Count 3.80 10^6/uL Low 4.0-5.4 47 Hemoglobin 11.9 g/dL Low 12.0-16.0 47 Hematocrit 36 % 35-47 47 Mean Corpuscular Volume 96 fL 80-97 47 Mean Corpuscular Hemoglobin 31 pg 27-31 47 Mean Corpuscular HGB Conc 33 g/dL 31-36 47 Red Cell Distribution Width 15 % 10.5-15 47 Platelet Count 248 10^3/uL 150-450 47 Mean Platelet Volume 9 um3 7.4-10.4 47 Basic Metabolic Panel 05/07/2015 Sodium 136 mmol/L 133-145 47 Potassium 4.5 mmol/L 3.5-5.0 47 Chloride 103 mmol/L 101-111 47 Co2 Carbon Dioxide 25 mmol/L 22-32 47 Anion Gap 8 mmol/L 2-11 47 Glucose 86 mg/dL 70-100 47 Blood Urea Nitrogen 25 mg/dL High 6-24 47 Creatinine 0.93 mg/dL 0.51-0.95 47 BUN/Creatinine Ratio 26.9 High 8-20 47 Calcium 9.0 mg/dL 8.6-10.3 47 Egfr Non- 57.6 >60 47 Egfr 74.0 >60 47, 48 Type & Screen 05/07/2015 Patient Blood Type B Positive 47 Antibody Screen NEGATIVE 47 Laboratory test finding 11/09/2014 TSH Reflex FT4 and/or 0.81 uIU/mL 0.36 -3.74 49 FT3 Xray 11/09/2014 left shoulder xray <pending> Basic Metabolic Panel 10/31/2014 Glucose 89 mg/dL 74-106 BUN 21 mg/dL High 7-18 Creatinine 1.0 mg/dL 0.6-1.3 Glom Filtration Rate, Estimate 56 mL/min >60 If >60 mL/min >60 50 BUN/Creat 21.0 ratio Sodium 140 mmol/L 136-145 Potassium 4.2 mmol/L 3.5-5.1 Chloride 105 mmol/L 98-107 Carbon Dioxide 27 mmol/L 21-32 Anion Gap 8 mEq/L 8-16 Calcium 9.4 mg/dL 8.5-10.1 LDL Cholesterol Profile 10/31/2014 Cholesterol 146 mg/dL < 200 51 Triglycerides 147 mg/dL < 150 52 HDL Cholesterol 47 mg/dL > 40 53 LDL-Cholesterol 70 mg/dL < 100 54 Liver Function Tests 10/31/2014 Total Protein 7.3 g/dL 6.4-8.2 Albumin 3.8 g/dL 3.4-5.0 Globulin 3.5 g/dL 1.9-4.3 Alb/Glob 1.1 ratio Bilirubin,Total 0.6 mg/dL 0.2-1.0 Bilirubin,Direct 0.2 mg/dL 0.0-0.2 Bilirubin,Indirect 0.4 mg/dL 0.0-0.9 Sgot/Ast 16 U/L 15-37 SGPT/Alt 16 U/L 12-78 Alkaline Phosphatase 78 U/L 45-117 Laboratory test finding 10/31/2014 Uric Acid 4.1 mg/dL 2.6-6.0 Basic Metabolic Panel 08/09/2013 Glucose 97 mg/dL 76-115 BUN 22 mg/dL 5-23 Creatinine 1.0 mg/dL 0.5-1.4 Glom Filtration Rate, Estimate 57 mL/min >60 If >60 mL/min >60 55 BUN/Creat 22.0 ratio Sodium 140 mmol/L 136-145 Potassium 4.3 mmol/L 3.5-5.1 Chloride 106 mmol/L 98-107 Carbon Dioxide 24 mEq/L 18-29 Anion Gap 14 mEq/L 8-16 Calcium 10.0 mg/dL 8.5-10.1 CBS W/Automated Diff 08/09/2013 White Blood Count 7.4 K/uL 3.1-10.7 Red Blood Count 4.07 M/uL 3.90-5.40 Hemoglobin 13.1 gm/dL 11.6-15.8 Hematocrit 39.1 % 36.0-46.1 Mean Cell Volume 96.1 fl 80.9-99.0 Mean Corpuscular HGB 32.2 pg 25.9-32.7 Mean Corpuscular HGB Conc 33.5 g/dL 30.8-34.3 Platelet Count 230 K/uL 155-360 Red Cell Distri Width SD 49.1 fl High 3-47 Red Cell Distri Width %CV 14.5 % High 11.7-14.4 Mean Platelet Volume 11.6 fL 8.9-12.4 Neut% 66.3 % 40.4-72.8 Lymph % 24.7 % 17.0-46.1 [place] % 7.8 % 4.3-13.2 Eo% 1.1 % 0.0-6.6 Bas% 0.1 % 0.0-1.1 Neut# 4.92 K/uL 1.0-7.0 Lymph # 1.83 K/uL 0.8-3.4 [place] # 0.58 K/uL 0.3-0.9 Eos # 0.08 K/uL 0.0-0.5 Baso # 0.01 K/uL 0.0-0.1 LDL Cholesterol Profile 08/09/2013 Cholesterol 155 mg/dL 120-200 Triglycerides 97 mg/dL 16-231 HDL Cholesterol 53 mg/dL 29-83 LDL-Cholesterol 83 mg/dL 62-185 Liver Function Tests 08/09/2013 Total Protein 7.8 g/dL 6.3-8.0 Albumin 4.2 g/dL 3.5-5.0 Globulin 3.6 g/dL 1.9-4.3 Alb/Glob 1.2 ratio Bilirubin,Total 0.7 mg/dL 0.2-1.2 Bilirubin,Direct 0.1 mg/dL 0.1-0.4 Bilirubin,Indirect 0.6 mg/dL 0.0-0.9 Sgot/Ast 22 U/L 16-40 SGPT/Alt 19 U/L Low 30-65 Alkaline Phosphatase 90 U/L 50-136 Laboratory test finding 07/05/2013 Gastric Biopsy/Polyp See Note 56 Xray 04/27/2013 CT scan of abdomen and <pending> pelvis Laboratory test finding 04/27/2013 ThinPrep Pap: Vulva + See Note 57 Vagina Laboratory test finding 04/27/2013 Urine Culture See Note 58 Laboratory test finding 04/13/2013 Urine Culture See Note 59 Laboratory test finding 02/08/2013 Uric Acid 5.2 mg/dL 2.1-7.4 Liver Function Tests 02/08/2013 Total Protein 8.0 g/dL 6.3-8.0 Albumin 3.7 g/dL 3.5-5.0 Globulin 4.3 g/dL 1.9-4.3 Alb/Glob 0.9 ratio Bilirubin,Total 0.6 mg/dL 0.2-1.2 Bilirubin,Direct 0.1 mg/dL 0.1-0.4 Bilirubin,Indirect 0.5 mg/dL 0.0-0.9 Sgot/Ast 15 U/L Low 16-40 SGPT/Alt 22 U/L Low 30-65 Alkaline Phosphatase 96 U/L 50-136 LDL Cholesterol Profile 02/08/2013 Cholesterol 193 mg/dL 120-200 Triglycerides 181 mg/dL 16-231 HDL Cholesterol 57 mg/dL 29-83 LDL-Cholesterol 100 mg/dL 62-185 CBS W/Automated Diff 02/08/2013 White Blood Count 7.8 K/uL 3.1-10.7 Red Blood Count 4.41 M/uL 3.90-5.40 Hemoglobin 14.1 gm/dL 11.6-15.8 Hematocrit 42.3 % 36.0-46.1 Mean Cell Volume 95.9 fl 80.9-99.0 Mean Corpuscular HGB 32.0 pg 25.9-32.7 Mean Corpuscular HGB Conc 33.3 g/dL 30.8-34.3 Platelet Count 261 K/uL 155-360 Red Cell Distri Width SD 49.9 fl High 3-47 Red Cell Distri Width %CV 14.7 % High 11.7-14.4 Mean Platelet Volume 11.6 fL 8.9-12.4 Neut% 64.1 % 40.4-72.8 Lymph % 27.3 % 17.0-46.1 [place] % 6.4 % 4.3-13.2 Eo% 1.9 % 0.0-6.6 Bas% 0.3 % 0.0-1.1 Neut# 4.99 K/uL 1.0-7.0 Lymph # 2.13 K/uL 0.8-3.4 [place] # 0.50 K/uL 0.3-0.9 Eos # 0.15 K/uL 0.0-0.5 Baso # 0.02 K/uL 0.0-0.1 Basic Metabolic Panel 02/08/2013 Glucose 118 mg/dL High 76-115 BUN 15 mg/dL 5-23 Creatinine 1.1 mg/dL 0.5-1.4 Glom Filtration Rate, Estimate 51 mL/min >60 If >60 mL/min >60 60 BUN/Creat 13.6 ratio Sodium 145 mmol/L 136-145 Potassium 4.8 mmol/L 3.5-5.1 Chloride 109 mmol/L High 98-107 Carbon Dioxide 26 mEq/L 18-29 Anion Gap 15 mEq/L 8-16 Calcium 9.8 mg/dL 8.5-10.1 Basic Metabolic Panel 09/27/2012 Glucose 107 mg/dL 76-115 BUN 18 mg/dL 5-23 Creatinine 1.0 mg/dL 0.5-1.4 Glom Filtration Rate, Estimate 57 mL/min >60 If >60 mL/min >60 61 BUN/Creat 18.0 ratio Sodium 144 mmol/L 136-145 Potassium 4.3 mmol/L 3.5-5.1 Chloride 110 mmol/L High 98-107 Carbon Dioxide 26 mEq/L 18-29 Anion Gap 12 mEq/L 8-16 Calcium 9.2 mg/dL 8.5-10.1 CBS W/Automated Diff 09/27/2012 White Blood Count 7.6 K/uL 3.1-10.7 Red Blood Count 4.11 M/uL 3.90-5.40 Hemoglobin 13.1 gm/dL 11.6-15.8 Hematocrit 38.9 % 36.0-46.1 Mean Cell Volume 94.6 fl 80.9-99.0 Mean Corpuscular HGB 31.9 pg 25.9-32.7 Mean Corpuscular HGB Conc 33.7 g/dL 30.8-34.3 Platelet Count 233 K/uL 155-360 Red Cell Distri Width SD 48.7 fl High 3-47 Red Cell Distri Width %CV 14.6 % High 11.7-14.4 Mean Platelet Volume 11.4 fL 8.9-12.4 Neut% 65.5 % 40.4-72.8 Lymph % 25.7 % 17.0-46.1 [place] % 6.8 % 4.3-13.2 Eo% 1.9 % 0.0-6.6 Bas% 0.1 % 0.0-1.1 Neut# 4.95 K/uL 1.0-7.0 Lymph # 1.94 K/uL 0.8-3.4 [place] # 0.51 K/uL 0.3-0.9 Eos # 0.14 K/uL 0.0-0.5 Baso # 0.01 K/uL 0.0-0.1 LDL Cholesterol Profile 09/27/2012 Cholesterol 154 mg/dL 120-200 Triglycerides 146 mg/dL 16-231 HDL Cholesterol 48 mg/dL 29-83 LDL-Cholesterol 77 mg/dL 62-185 Liver Function Tests 09/27/2012 Total Protein 7.3 g/dL 6.3-8.0 Albumin 3.6 g/dL 3.5-5.0 Globulin 3.7 g/dL 1.9-4.3 Alb/Glob 1.0 ratio Bilirubin,Total 0.5 mg/dL 0.2-1.2 Bilirubin,Direct 0.1 mg/dL 0.1-0.4 Bilirubin,Indirect 0.4 mg/dL 0.0-0.9 Sgot/Ast 14 U/L Low 16-40 SGPT/Alt 15 U/L Low 30-65 Alkaline Phosphatase 83 U/L 50-136 Laboratory test finding 09/27/2012 TSH Reflex FT4 and/or 1.52 uIU/mL 0.49 -4.67 62 FT3 Uric Acid 4.9 mg/dL 2.1-7.4 Laboratory test finding 04/18/2012 Troponin-I < 0.02 ng/mL 0.00-0.50 63 Basic Metabolic Panel 04/18/2012 Glucose 105 mg/dL 76-115 BUN 22 mg/dL 5-23 Creatinine 1.2 mg/dL 0.5-1.4 Glom Filtration Rate, Estimate 46 mL/min >60 If 56 mL/min >60 64 BUN/Creat 18.3 ratio Sodium 139 mmol/L 136-145 Potassium 4.1 mmol/L 3.5-5.1 Chloride 104 mmol/L 98-107 Carbon Dioxide 24 mEq/L 18-29 Anion Gap 15 mEq/L 8-16 Calcium 8.6 mg/dL 8.5-10.1 LDL Cholesterol Profile 04/18/2012 Cholesterol 113 mg/dL Low 120-200 Triglycerides 145 mg/dL 16-231 HDL Cholesterol 40 mg/dL 29-83 LDL-Cholesterol 44 mg/dL Low 62-185 CBC W/Automated Diff 04/18/2012 White Blood Count 9.0 K/uL 3.1-10.7 Red Blood Count 3.22 M/uL Low 3.90-5.40 Hemoglobin 10.0 gm/dL Low 11.6-15.8 Hematocrit 31.2 % Low 36.0-46.1 Mean Cell Volume 96.9 fl 80.9-99.0 Mean Corpuscular HGB 31.1 pg 25.9-32.7 Mean Corpuscular HGB Conc 32.1 g/dL 30.8-34.3 Platelet Count 206 K/uL 155-360 Red Cell Distri Width SD 52.8 fl High 3-47 Red Cell Distri Width %CV 15.2 % High 11.7-14.4 Mean Platelet Volume 10.7 fL 8.9-12.4 Neut% 57.1 % 40.4-72.8 Lymph % 29.1 % 17.0-46.1 [place] % 10.3 % 4.3-13.2 Eo% 3.4 % 0.0-6.6 Bas% 0.1 % 0.0-1.1 Neut# 5.15 K/uL 1.0-7.0 Lymph # 2.63 K/uL 0.8-3.4 [place] # 0.93 K/uL High 0.3-0.9 Eos # 0.31 K/uL 0.0-0.5 Baso # 0.01 K/uL 0.0-0.1 Hemoglobin A1c 04/18/2012 Glycohemoglobin (A1c) 6.5 % High 4.8-6.0 65 eAG 140 mg/dL Blood Culture 04/17/2012 Blood Culture Aerobic See Note 66 Blood Culture Anaerobic See Note 67 Blood Culture 04/17/2012 Blood Culture Aerobic See Note 68 Blood Culture Anaerobic See Note 69 Protime 02/10/2012 Inr 0.98 0.88-1.13 70, 71 Protime 11.7 SEC 10.3-13.5 70, 72 Laboratory test finding 02/10/2012 PTT (Aptt) 28.3 SEC 25.1-38.5 70 Type And Screen 02/10/2012 Patient Blood Type B POSITIVE 70 Antibody Screen NEGATIVE 70 Specimen Discard Date 02/24/12 70, 73 Basic Metabolic Panel 02/10/2012 Sodium 139 mmol/L 135-145 70 Potassium 4.4 mmol/L 3.5-5.0 70 Chloride 106 mmol/L 101-111 70 Co2 (Carbon Dioxide) 22.0 mmol/L 22-32 70 Anion Gap 11.0 mmol/L 2-11 70, 74 Glucose 112 mg/dL High 70-100 70 BUN 22 mg/dL 6-24 70 Creatinine 1.1 mg/dL 0.50-1.40 70 One Over Creatinine 0.90 70 BUN/Creatinine Ratio 20.0 8-20 70 Calcium 9.4 mg/dL 8.1-9.9 70 eGFR Non- 47.8 > 60 70 eGFR 61.5 > 60 70, 75 CBC Auto Diff 02/10/2012 White Blood Count 14.1 CUMM High 4.8-10.8 70 Red Cell Count 3.60 CUMM Low 4.2-5.4 70 Hemoglobin 11.6 g/dL Low 12.0-16.0 70 Hematocrit 35 % 35-47 70 Mean Corpuscular Volume 97 um3 79-97 70 Mean Corpuscular Hemoglob 32 pg High 27-31 70 Mean Corpuscular HGB Cone 33 g/dL 32-36 70 Redcell Distribution WDTH 15 % 10.5-15 70 Platelet Count 223 CUMM 150-450 70 Mean Platelet Volume 10.4 um3 7.4-10.4 70 Gran % 68.3 % 38-83 70 Lymph % 20.6 % 20-45 70 Mononuclear % 10.2 % High 1-9 70 Eosinophil % 0.4 % 0-6 70 Basophil % 0.5 % 0-2 70 Abs Lymphs 2.9 1.0-4.8 70 Abs Mononuclear 1.4 High 0-0.8 70 Absolute Neutrophil Count 9.6 High 1.5-7.7 70 Abs Eosinophils 0.1 0-0.6 70 Abs Basophils 0.1 0-0.2 70 CBC W/Automated Diff 08/05/2011 White Blood Count 9.0 K/uL 3.1-10.7 Red Blood Count 4.26 M/uL 3.90-5.40 Hemoglobin 13.5 gm/dL 11.6-15.8 Hematocrit 40.6 % 36.0-46.1 Mean Cell Volume 95.3 fl 80.9-99.0 Mean Corpuscular HGB 31.7 pg 25.9-32.7 Mean Corpuscular HGB Conc 33.3 g/dL 30.8-34.3 Platelet Count 237 K/uL 155-360 Red Cell Distri Width SD 48.1 fl High 3-47 Red Cell Distri Width %CV 14.2 % 11.7-14.4 Mean Platelet Volume 11.0 fL 8.9-12.4 Neut% 67.9 % 40.4-72.8 Lymph % 22.6 % 17.0-46.1 [place] % 7.0 % 4.3-13.2 Eo% 2.3 % 0.0-6.6 Bas% 0.2 % 0.0-1.1 Neut# 6.14 K/uL 1.0-7.0 Lymph # 2.04 K/uL 0.8-3.4 [place] # 0.63 K/uL 0.3-0.9 Eos # 0.21 K/uL 0.0-0.5 Baso # 0.02 K/uL 0.0-0.1 Glycohemoglobin A1c 08/05/2011 Glycohemoglobin (A1c) 6.6 % High 4.8-6.0 76 eAG 143 mg/dL Laboratory test finding 08/05/2011 CK 58 U/L 26-190 Thyroid Stim Hormone 2.30 uIU/mL 0.49-4.67 Free T4 0.93 ng/dL 0.71-1.85 LDL Cholesterol Profile 08/05/2011 Cholesterol 151 mg/dL 120-200 Triglycerides 210 mg/dL 16-231 HDL Cholesterol 48 mg/dL 29-83 LDL-Cholesterol 61 mg/dL Low 62-185 Laboratory test finding 08/05/2011 Uric Acid 5.0 mg/dL 2.1-7.4 Basic Metabolic Panel 08/05/2011 Glucose 125 mg/dL High 76-115 BUN 23 mg/dL 5-23 Creatinine 1.2 mg/dL 0.5-1.4 Glom Filtration Rate, Estimate 46 mL/min >60 If 56 mL/min >60 77 BUN/Creat 19.1 ratio Sodium 141 mmol/L 136-145 Potassium 4.6 mmol/L 3.5-5.1 Chloride 105 mmol/L 98-107 Carbon Dioxide 28 mEq/L 18-29 Anion Gap 13 mEq/L 8-16 Calcium 9.2 mg/dL 8.5-10.1 Liver Function Tests 08/05/2011 Total Protein 7.1 g/dL 6.3-8.0 Albumin 3.9 g/dL 3.5-5.0 Globulin 3.2 g/dL 1.9-4.3 Alb/Glob 1.2 ratio Bilirubin,Total 0.8 mg/dL 0.2-1.2 Bilirubin,Direct 0.2 mg/dL 0.1-0.4 Bilirubin,Indirect 0.6 mg/dL 0.0-0.9 Sgot/Ast 14 U/L Low 16-40 SGPT/Alt 29 U/L Low 30-65 Alkaline Phosphatase 71 U/L 50-136 1 I10,M10.9 2 Instrument flagged sample for slide review. Less than 10% Bands seen, no other immature WBC's seen. RBC morphology essentially normal. Platelet estimate=NORMAL 3 Reference Guidelines*: Desirable: ........... < 200 mg/dL Borderline High: ..... 200-239 mg/dL High: ................ >=240 mg/dL * The National Cholesterol Education Program (NCEP) 4 Reference Guidelines*: Normal: ............. < 150 mg/dL Borderline High: .... 150-199 mg/dL High: ............... 200-499 mg/dL Very High: .......... > 500 mg/dL * Source: National Cholesterol Education Program (NCEP) 5 Reference Guidelines*: Low HDL: ..... < 40 mg/dL Normal: ..... 40-60 mg/dL Desirable: ... > 60 mg/dL *The National Cholesterol Education Program(NCEP) 6 Reference Guidelines*: Optimal:........... <100 mg/dL Near Optimal....... 100-129 mg/dL Borderline High.... 130-159 mg/dL High............... 160-189 mg/dL Very High.......... >=190 mg/dL * Source: National Cholesterol Education Program (NCEP) 7 Note: Persistent reduction for 3 months or more in an eGFR <60 mL/min/1.73 m2 defines CKD. Patients with eGFR values >/=60 mL/min/1.73 m2 may also have CKD if evidence of persistent proteinuria is present. The original MDRD equation for estimated GFR is not valid for patients less than 18 years of age. Additional information may be found at www.kdoqi.org. 8 [id number] SEE RESULT BELOW Name: NEDA GLYNN Laron : [address]: Jossie SHAH Acct: [id number] Unit: [id number] AGE: 87 Location: [facility] Re11/10/17 SEX: F Status: REG REF SPEC: [id number] JACE: 11/10/[address] [facility] [address]: Jossie SHAH REQ: [id number] RECD: 11/10/17 STATUS: COMP _ SOURCE: URINE SPDESC: ORDERED: Urine Culture COMMENTS: [id number] QUERIES: Urine Source: Clean Catch Procedure Result Reported Site Urine Culture Final 11/12/17- 0859 ML No growth of clinically significant organisms * ML - Main Lab . END OF REPORT DEPARTMENT OF PATHOLOGY, [address] [place] [address] Yair Echols M.D. Director [facility] # [id number] 10 E61.1 11 Note: Persistent reduction for 3 months or more in an eGFR <60 mL/min/1.73 m2 defines CKD. Patients with eGFR values >/=60 mL/min/1.73 m2 may also have CKD if evidence of persistent proteinuria is present. The original MDRD equation for estimated GFR is not valid for patients less than 18 years of age. Additional information may be found at [email or web address]. 12 Instrument flagged sample for slide review. Less than 10% Bands seen, no other immature WBC's seen. RBC morphology essentially normal. Platelet estimate=NORMAL 13 C18.4 D64.9 E61.1 14 Non-smokers ..... 0.0-3.0 ng/mL Smokers ......... 0.0-5.0 ng/mL THIS ASSAY IS NOT INTENDED A CANCER SCREENING TEST The concentration of CEA in a given specimen, determined with assays from different manufacturers, can vary due to differences in assay methods and reagent specificity. Values obtained from different assay methods cannot be used interchangeably. Method: Siemens Dimension [place] Chemiluminescent Immunoassay 15 Note: Persistent reduction for 3 months or more in an eGFR <60 mL/min/1.73 m2 defines CKD. Patients with eGFR values >/=60 mL/min/1.73 m2 may also have CKD if evidence of persistent proteinuria is present. The original MDRD equation for estimated GFR is not valid for patients less than 18 years of age. Additional information may be found at [email or web address]. 16 Therapeutic target for the treatment of diabetes mellitus patients is <7% HBA1C, and in selective patients <6.0%. Please refer to [place] [employer] diabetic care guidelines for further information. 17 C18.4 18 Instrument flagged sample for slide review. Less than 10% Bands seen, no other immature WBC's seen. 0-1+ TOXIC GRANULATION RBC morphology essentially normal. Platelet estimate=NORMAL 19 Non-smokers ..... 0.0-3.0 ng/mL Smokers ......... 0.0-5.0 ng/mL THIS ASSAY IS NOT INTENDED A CANCER SCREENING TEST The concentration of CEA in a given specimen, determined with assays from different manufacturers, can vary due to differences in assay methods and reagent specificity. Values obtained from different assay methods cannot be used interchangeably. Method: Siemens Dimension [place] Chemiluminescent Immunoassay 20 Note: Persistent reduction for 3 months or more in an eGFR <60 mL/min/1.73 m2 defines CKD. Patients with eGFR values >/=60 mL/min/1.73 m2 may also have CKD if evidence of persistent proteinuria is present. The original MDRD equation for estimated GFR is not valid for patients less than 18 years of age. Additional information may be found at [email or web address]. 21 COLON ADENOCARCINOMA 22 Note: Persistent reduction for 3 months or more in an eGFR <60 mL/min/1.73 m2 defines CKD. Patients with eGFR values >/=60 mL/min/1.73 m2 may also have CKD if evidence of persistent proteinuria is present. The original MDRD equation for estimated GFR is not valid for patients less than 18 years of age. Additional information may be found at [email or web address]. 23 Note: Persistent reduction for 3 months or more in an eGFR <60 mL/min/1.73 m2 defines CKD. Patients with eGFR values >/=60 mL/min/1.73 m2 may also have CKD if evidence of persistent proteinuria is present. The original MDRD equation for estimated GFR is not valid for patients less than 18 years of age. Additional information may be found at [email or web address]. 24 Tests: crp Instructions: 25 Elevated levels of HbA1c suggest the need for more aggressive treatment of glycemia. The [place] [employer] recommends that a primary goal of therapy should be a HbA1c of <7% and that physicians should re-evaluate the treatment regimen in patients with HbA1c values consistently >8%. 26 Note: Persistent reduction for 3 months or more in an eGFR <60 mL/min/1.73 m2 defines CKD. Patients with eGFR values >/=60 mL/min/1.73 m2 may also have CKD if evidence of persistent proteinuria is present. The original MDRD equation for estimated GFR is not valid for patients less than 18 years of age. Additional information may be found at [email or web address]. 27 POSSIBLE UROGENITAL CONTAMINATION. 28 URINE, CLEAN CATCH 29 NO GROWTH: FINAL REPORT 30 Note: Persistent reduction for 3 months or more in an eGFR <60 mL/min/1.73 m2 defines CKD. Patients with eGFR values >/=60 mL/min/1.73 m2 may also have CKD if evidence of persistent proteinuria is present. The original MDRD equation for estimated GFR is not valid for patients less than 18 years of age. Additional information may be found at [email or web address]. 31 Instrument flagged sample for slide review. Less than 10% Bands seen, no other immature WBC's seen. RBC morphology essentially normal. Platelet estimate=NORMAL 32 Note: Persistent reduction for 3 months or more in an eGFR <60 mL/min/1.73 m2 defines CKD. Patients with eGFR values >/=60 mL/min/1.73 m2 may also have CKD if evidence of persistent proteinuria is present. The original MDRD equation for estimated GFR is not valid for patients less than 18 years of age. Additional information may be found at [email or web address]. 33 C18.4 34 Note: Persistent reduction for 3 months or more in an eGFR <60 mL/min/1.73 m2 defines CKD. Patients with eGFR values >/=60 mL/min/1.73 m2 may also have CKD if evidence of persistent proteinuria is present. The original MDRD equation for estimated GFR is not valid for patients less than 18 years of age. Additional information may be found at [email or web address]. 35 Because ethnic data is not always readily available, this report includes an eGFR for both -Americans and non- Americans. The National Kidney Disease Education Program (NKDEP) does not endorse the use of the MDRD equation for patients that are not between the ages of 18 and 70, are , have extremes of body size, muscle mass, or nutritional status, or are non- or non-. According to the National Kidney Foundation, irrespective of diagnosis, the stage of the disease is based on the level of kidney function: Stage Description GFR(mL/min/1.73 m(2)) 1 Kidney damage with normal or decreased GFR 90 2 Kidney damage with mild decrease in GFR 60-89 3 Moderate decrease in GFR 30-59 4 Severe decrease in GFR 15-29 5 Kidney failure <15 (or dialysis) 36 CP, SENT BY CC 37 Note: Persistent reduction for 3 months or more in an eGFR <60 mL/min/1.73 m2 defines CKD. Patients with eGFR values >/=60 mL/min/1.73 m2 may also have CKD if evidence of persistent proteinuria is present. The original MDRD equation for estimated GFR is not valid for patients less than 18 years of age. Additional information may be found at [email or web address]. 38 0.0 - 0.045 ng/mL: Normal 0.046 - 0.5 ng/mL: Suggestive 0.6 - 1.5 ng/mL: Consistent 39 Note: Persistent reduction for 3 months or more in an eGFR <60 mL/min/1.73 m2 defines CKD. Patients with eGFR values >/=60 mL/min/1.73 m2 may also have CKD if evidence of persistent proteinuria is present. The original MDRD equation for estimated GFR is not valid for patients less than 18 years of age. Additional information may be found at [email or web address]. 40 Organism 1 ! MIXED URETHRAL ELOISA Quantity ! 10,000 - 50,000 CFU/mL 41 Organism 1 ! URETHRAL ELOISA Quantity ! 10,000 - 50,000 CFU/mL 42 Organism 1 ! ENTEROCOCCUS FAECALIS Quantity ! > 100,000 CFU/mL Organism 2 ! URETHRAL ELOISA Quantity ! > 100,000 CFU/mL ENTEROCOCCUS FAECALIS Target Route Dose M.I.C. RX AB COST ------ ----- -------- ------ -- ------ PENICILLIN G 2 S TETRACYCLINE >=16 R NITROFURANTOIN <=16 S AMPICILLIN <=2 S AMOXICILLIN S AMOXICILLIN/CLAVULANATE S AMPICILLIN/SULBACTAM S CIPROFLOXACIN <=0.5 S LEVOFLOXACIN 0.5 S PIPERACILLIN S VANCOMYCIN 1 S 43 OPERATION/PROCEDURE Left shoulder rotator cuff repair, acromioplasty and Bee procedure. DIAGNOSIS: PART 1: "PORTION OF LEFT DISTAL CLAVICLE, PARTIAL EXCISION": - BENIGN BONE AND BONE MARROW WITH APPARENTLY PRESERVED MIXED TRILINEAGE HEMATOPOIESIS. PART 2: "LEFT ACROMION, EXCISION": - BENIGN BONE, CARTILAGE AND SKELETAL MUSCLE FRAGMENTS WITH REACTIVE CHANGE. /clf [id number] GROSS Received in formalin in two properly labeled containers with the patient's name and accession number. Part one is designated, "PORTION OF LEFT DISTAL CLAVICLE". The specimen consist of a 2.5 x 2.0 x 0.6 cm. piece of bone. Submitted for decalcification in one cassette. Part two is designated, "LEFT ACROMION". The specimen consists of two pieces of bone measuring 2.0 x 2.0 x 0.8 cm. in aggregate. Submitted for decalcification in one cassette. /clf PRE OPERATIVE DIAGNOSIS Complete left rotator cuff tear. REVIEW CODE CODE: I Signed Electronically signed Cassia HERBERT MD [id number] 44 0.0 - 0.045 ng/mL: Normal 0.046 - 0.5 ng/mL: Suggestive 0.6 - 1.5 ng/mL: Consistent 45 Note: Persistent reduction for 3 months or more in an eGFR <60 mL/min/1.73 m2 defines CKD. Patients with eGFR values >/=60 mL/min/1.73 m2 may also have CKD if evidence of persistent proteinuria is present. The original MDRD equation for estimated GFR is not valid for patients less than 18 years of age. Additional information may be found at [email or web address]. 46 <=0.49 ug/mL - Low likelihood of DIC, DVT or Pulmonary Embolism >0.49 ug/mL - Additional testing should be done to rule out DIC, DVT, or Pulmonary embolism as clinically indicated. ([facility] has established a 97.89% negative predictive value for thrombotic disease when a cutoff value of 0.5 ug/mL is used.) 47 AA 05/17 48 Because ethnic data is not always readily available, this report includes an eGFR for both -Americans and non- Americans. The National Kidney Disease Education Program (NKDEP) does not endorse the use of the MDRD equation for patients that are not between the ages of 18 and 70, are , have extremes of body size, muscle mass, or nutritional status, or are non- or non-. According to the National Kidney Foundation, irrespective of diagnosis, the stage of the disease is based on the level of kidney function: Stage Description GFR(mL/min/1.73 m(2)) 1 Kidney damage with normal or decreased GFR 90 2 Kidney damage with mild decrease in GFR 60-89 3 Moderate decrease in GFR 30-59 4 Severe decrease in GFR 15-29 5 Kidney failure <15 (or dialysis) 49 QUERY: Reflex add FT3? Y QUERY: Reflex add FT4? Y 50 Note: Persistent reduction for 3 months or more in an eGFR <60 mL/min/1.73 m2 defines CKD. Patients with eGFR values >/=60 mL/min/1.73 m2 may also have CKD if evidence of persistent proteinuria is present. The original MDRD equation for estimated GFR is not valid for patients less than 18 years of age. Additional information may be found at [email or web address]. 51 Reference Guidelines*: Desirable: ........... < 200 mg/dL Borderline High: ..... 200-239 mg/dL High: ................ >=240 mg/dL * The National Cholesterol Education Program (NCEP) 52 Reference Guidelines*: Normal: ............. < 150 mg/dL Borderline High: .... 150-199 mg/dL High: ............... 200-499 mg/dL Very High: .......... > 500 mg/dL * Source: National Cholesterol Education Program (NCEP) 53 Reference Guidelines*: Low HDL: ..... < 40 mg/dL Normal: ..... 40-60 mg/dL Desirable: ... > 60 mg/dL *The National Cholesterol Education Program(NCEP) 54 Reference Guidelines*: Optimal:........... <100 mg/dL Near Optimal....... 100-129 mg/dL Borderline High.... 130-159 mg/dL High............... 160-189 mg/dL Very High.......... >=190 mg/dL * Source: National Cholesterol Education Program (NCEP) 55 Note: Persistent reduction for 3 months or more in an eGFR <60 mL/min/1.73 m2 defines CKD. Patients with eGFR values >/=60 mL/min/1.73 m2 may also have CKD if evidence of persistent proteinuria is present. The original MDRD equation for estimated GFR is not valid for patients less than 18 years of age. Additional information may be found at [email or web address]. 56 OPERATION/PROCEDURE Colonoscopy, gastroscopy DIAGNOSIS: PART 1: "DUODENUM, BIOPSY": SMALL BOWEL MUCOSA WITHOUT SIGNIFICANT PATHOLOGICAL ABNORMALITY. PART 2: "STOMACH, BIOPSY": FUNDIC GLAND POLYPS, BENIGN. NO HELICOBACTER SEEN WITH SPECIAL STAIN. Nataly GROSS Part 1; "DUODENAL BIOPSY". The specimen is received in an appropriately labeled container. This contains four rounded domingo colored pieces of soft tissue measuring up to 0.4 cm.; filtered and submitted in toto within a single cassette. Part 2; "STOMACH BIOPSY". The specimen is received in an appropriately labeled container. This contains three rounded domingo colored pieces of soft tissue measuring up to 0.4 cm.; filtered and submitted in toto within a single cassette. JW/clf MICROSCOPIC Part 1: Sections reveal villiform mucosa with well-oriented crypts, with normal maturation of lining cells to the surface. The stroma contains a normal degree of lymphoplasmacytic infiltration. Part 2: These represent gastric mucosa, with hyperplastic extension of deep epithelial oxyntic mucosa. The overlying pits are shortened or absent. Masses of distorted glands containing scattered cystically dilated pits and glands lie close to the luminal surface. The glands are attached onto the surface of normal to slightly atrophic mucosa. There are no Helicobacter-type bacteria identified with Warthin- Starry staining. The controls are adequate. PRE OPERATIVE DIAGNOSIS Lower abdominal pain, anorexia, dysphagia, GERD, weight loss REVIEW CODE CODE: I ISMAEL Villanueva MD 07/07/13 1454 57 CYTOLOGY SCREENER - ELASTIC ATTACHER ZIGZAG @ 09/06 Screened by: Monik Jones [facility](ASCP) PAP: FINAL REPORT SPECIMEN ADEQUACY: SPECIMEN SATISFACTORY FOR INTERPRETATION <4m OF SAMPLE REMAINS IN VIAL:INSUFFICIENT FOR HPV TEST INTERPRETATION: ATYPICAL SQUAMOUS CELLS OF UNDETERMINED SIGNIFICANCE COMMENT: THINPREP PREPARED PAP SLIDE # Prepared in the Cytology laboratory from the ThinPrep sample is 1 ThinPrep smear. PAP ACCESSI QUESTIONNAIRE 08/05 PERTINENT CLINICAL HISTORY FOR PAP (ELASTIC ATTACHER ZIGZAG) CYTOLOGY (Check all that apply): ? N Post ? N Menopause? Y LMP date: 40 YRS AGO Last Pap: at [facility]? N Abnormal Pap? If Yes, date: Post Hysterectomy? Y Is cervix present? If patient had related surgical procedure: What Procedure? HYSTRECTOMY Related Therapy: Significant Clinical History: 789.9 DISCLAIMER: The Pap smear is a screening test and not a diagnostic procedure. False negative and false positive results can and do occur for a number of reasons. Regular screening provides an aid in detecting treatable cervical abnormalities, but should not be used as the only means for detecting cervical dysplasia and carcinoma. ISMAEL Villanueva MD 05/03/13 1538 58 COLONY COUNT ! 70,000-80,000 CFU/ml Organism 1 ! MIXED URETHRAL ELOISA 59 COLONY COUNT ! 20,000-30,000 CFU/ml Organism 1 ! MIXED URETHRAL ELOISA 60 Note: Persistent reduction for 3 months or more in an eGFR <60 mL/min/1.73 m2 defines CKD. Patients with eGFR values >/=60 mL/min/1.73 m2 may also have CKD if evidence of persistent proteinuria is present. The original MDRD equation for estimated GFR is not valid for patients less than 18 years of age. Additional information may be found at [email or web address]. 61 Note: Persistent reduction for 3 months or more in an eGFR <60 mL/min/1.73 m2 defines CKD. Patients with eGFR values >/=60 mL/min/1.73 m2 may also have CKD if evidence of persistent proteinuria is present. The original MDRD equation for estimated GFR is not valid for patients less than 18 years of age. Additional information may be found at [email or web address]. 62 QUERY: Add FT3 if TSH abnormal? FT3 N QUERY: Add FT4 if TSH Abnormal? FT4 Y 63 0 - 0.5 ng/mL: No evidence of myocardial injury 0.6 - 1.4 ng/mL: Mild elevation, suggesting possible myocardial injury > 1.4 ng/mL: Consistent with myocardial injury 64 Note: Persistent reduction for 3 months or more in an eGFR <60 mL/min/1.73 m2 defines CKD. Patients with eGFR values >/=60 mL/min/1.73 m2 may also have CKD if evidence of persistent proteinuria is present. The original MDRD equation for estimated GFR is not valid for patients less than 18 years of age. Additional information may be found at [email or web address]. 65 A1c value between 5.7% and 6.4% is considered at increased risk for diabetes. A1c value greater than 6.5 % is considered essentially diagnostic for Type II diabetes. Current guidelines recommend a treatment goal of <7% for diabetic patients. This method will measure glycosylated hemoglobin variants, HbS, HbG, HbH, HbWayne, HbC, HbE, etc. Other hemoglobin- opathies may give incorrect results with this test. 66 NO GROWTH: FINAL REPORT 67 NO GROWTH: FINAL REPORT 68 NO GROWTH: FINAL REPORT 69 NO GROWTH: FINAL REPORT 70 AA 02/18 71 Recommended INR for Patients on Oral Anticoagulants Prophylaxis 2.0 - 3.0 Treatment of thrombosis 2.0 - 3.0 Prevention of embolism 2.0 - 3.0 Prevention of embolism from prosthetic heart valves 2.5 - 3.5 72 DIAGNOSIS,TREATMENT,AND THERAPY MUST BE BASED ON THE INR VALUE ALONE. 73 PREADMISSION TESTING SAMPLES FOR BLOOD BANK WILL BE HELD FOR 14 DAYS FROM THE DATE OF COLLECTION *IF* THE FOLLOWING CRITERIA ARE MET: 1) THE PATIENT HAS *NOT* BEEN IN THE LAST 3 MONTHS. 2) THE PATIENT HAS *NOT* BEEN TRANSFUSED IN THE LAST 3 MONTHS. PREADMISSION TESTING SAMPLES WILL *NOT* BE HELD FOR 14 DAYS FROM PATIENTS WHO IN THE LAST 3 MONTHS: 1) HAVE BEEN 2) HAVE BEEN TRANSFUSED THESE PATIENTS *MUST* BE COLLECTED WITHIN 3 DAYS OF THE SURGERY DATE. 74 Anion gap measurement may be of limited value in the presence of any alkalosis, especially in a combined acid base disorder. . 75 Because ethnic data is not always readily available, this report includes an eGFR for both -Americans and non- Americans. The National Kidney Disease Education Program (NKDEP) does not endorse the use of the MDRD equation for patients that are not between the ages of 18 and 70, are , have extremes of body size, muscle mass, or nutritional status, or are non- or non-. According to the National Kidney Foundation, irrespective of diagnosis, the stage of the disease is based on the level of kidney function: Stage Description GFR(mL/min/1.73 m(2)) 1 Kidney damage with normal or decreased GFR 90 2 Kidney damage with mild decrease in GFR 60-89 3 Moderate decrease in GFR 30-59 4 Severe decrease in GFR 15-29 5 Kidney failure <15 (or dialysis) 76 A1c value between 5.7% and 6.4% is considered at increased risk for diabetes. A1c value greater than 6.5 % is considered essentially diagnostic for Type II diabetes. Current guidelines recommend a treatment goal of <7% for diabetic patients. This method will measure glycosylated hemoglobin variants, HbS, HbG, HbH, HbWayne, HbC, HbE, etc. Other hemoglobin- opathies may give incorrect results with this test. 77 Note: Persistent reduction for 3 months or more in an eGFR <60 mL/min/1.73 m2 defines CKD. Patients with eGFR values >/=60 mL/min/1.73 m2 may also have CKD if evidence of persistent proteinuria is present. The original MDRD equation for estimated GFR is not valid for patients less than 18 years of age. Additional information may be found at [email or web address]. Procedures Date CPT Code Description Status Comment 01/19/2018 57075 EKG Tracing Only Completed 02/11/2016 31932 Audiogram, Screen Only Pure Completed Tone 11/10/2014 01999 Arthr.Inj.joint shldr, hip, Completed knee 02/06/2014 51071 Audiogram, Screen Only Pure Completed Tone 07/05/2013 Colonoscopy Completed 02/24/17 due for repeat colonscopy 02/201802/03/2012 50488 Hearing Test Completed 08/14/2011 77920 Therapeutic prophylactic Completed inject 05/30/2009 86923 Hearing Test Completed 12/19/1997 74279 Injection, Administration Completed 12/15/1997 08389 Injection, Administration Completed 12/14/1997 53118 Injection, Administration Completed 12/12/1997 75347 Injection, Administration Completed Encounters Type Date Location Provider CPT E/M Dx Office Visit 03/09/2018 11:15a Main Office Robin Oscar M.D. 59932 B02.9 Office Visit 01/28/2018 9:30a Main Office Robin Oscar M.D. 74967 M51.16 M54.31 M54.5 I10 M10.9 E78.5 C18.4 Z23 Office Visit 01/19/2018 10:30a Main Office Robin Oscar M.D. 55666 R07.9 M54.5 M51.16 Office Visit 01/12/2018 3:00p [place] [address] M54.5 M54.31 Office Visit 11/10/2017 4:30p [place] [address] I10 C26.0 M54.5 M54.16 Office Visit 08/04/2017 4:30p [place] [address] C26.0 I10 M10.9 M54.5 K59.00 K21.9 Office Visit 05/14/2017 4:30p Main Office [place], [place] [address] I10 M10.9 M54.5 M25.511 R73.9 C26.0 Office Visit 03/23/2017 4:15p [place] [address] C26.0 I10 K21.9 M19.90 Z23 Office Visit 02/12/2017 3:30p [place] [address] Z00.01 R63.0 R11.0 Office Visit 10/28/2016 3:15p [place] [address] K44.9 R11.0 R63.0 R10.9 Office Visit 10/16/2016 2:00p [place] [address] R10.9 R11.0 R63.0 R63.4 M25.512 Office Visit 10/02/2016 1:00p [place] [address] K21.9 K31.84 Office Visit 08/12/2016 4:15p [place] [address] I10 M10.9 K21.9 M89.8x1 Office Visit 06/10/2016 2:30p [place] [address] Z01.818 H26.9 H00.015 M75.02 I10 M10.9 G56.02 Office Visit 05/13/2016 3:15p [place] [address] I10 M10.9 K21.9 M75.02 G56.02 Z23 Office Visit 12/25/2015 4:00p [place] [address] M75.120 Office Visit 11/22/2015 4:00p [place] [address] I10 M10.9 K21.9 M75.02 N39.0 Office Visit 10/02/2015 4:00p [place] [address] L89.302 N39.0 Office Visit 07/24/2015 11:00a [place] [address] M25.512 M50.00 M75.102 G89.4 Office Visit 07/05/2015 3:30p [place] [address] M54.2 M25.512 Office Visit 06/19/2015 11:00a [place] [address] M54.2 M25.512 M50.00 Office Visit 06/06/2015 1:00p [place] [address] M54.2 R00.1 L89.151 I10 Office Visit 05/07/2015 9:30a [place] [address] M54.2 M25.512 M25.511 M50.00 Office Visit 05/01/2015 1:00p [place] [address] M54.2 M10.9 K21.9 M25.512 R87.69 Office Visit 03/08/2015 4:15p [place] [address] 723.1 719.41 715.90 Office Visit 02/07/2015 1:15p [place] [address] V70.0 723.1 719.41 Office Visit 11/10/2014 10:15a [place] [address] 715.90 726.90 Office Visit 11/08/2014 1:00p [place] [address] 530.81 272.4 274.9 726.90 726.19 704.8 Office Visit 08/10/2014 1:00p [place] [address] 530.81 401.9 272.4 274.9 715.18 Office Visit 05/30/2014 4:30p [place] [address] 478.9 461.0 Office Visit 05/10/2014 10:00a [place] [address] 530.81 401.9 272.4 274.9 715.18 V04.81 Office Visit 01/11/2014 2:15p [place] [address] 530.81 401.9 724.2 716.90 Office Visit 10/13/2013 2:00p [place] [address] 530.11 787.02 724.5 272.4 274.9 V82.9 Office Visit 07/13/2013 10:15a [place] [address] 789.9 530.11 787.02 724.5 Office Visit 06/13/2013 10:15a [place] [address] 789.9 530.11 788.41 783.21 Office Visit 05/12/2013 10:15a [place] [address] 788.41 530.11 787.02 Office Visit 05/05/2013 9:15a [place] [address] 789.9 788.41 530.11 787.02 553.3 795.09 724.5 Office Visit 04/27/2013 10:00a [place] [address] 789.9 788.41 530.11 787.02 724.5 V72.31 Office Visit 04/13/2013 2:30p [place] [address] 789.9 788.41 599.89 v04.81 Office Visit 02/03/2013 9:30a [place] [address] 272.4 274.9 530.81 716.90 v70.0 Office Visit 09/21/2012 10:45a [place] [address] 272.4 274.9 530.81 716.90 401.9 Office Visit 04/21/2012 2:15p [place] [address] 786.50 288.60 733.6 922.1 Office Visit 04/12/2012 2:00p [place] [address] 272.4 274.9 724.02 716.90 V04.81 Office Visit 02/20/2012 9:00a [place] [address] 272.4 274.9 401.9 724.02 466.0 Office Visit 02/03/2012 2:15p [place] [address] 401.9 272.4 274.9 716.90 724.02 v70.0 389.20 Office Visit 08/14/2011 1:30p [place] [address] 787.02 724.2 724.4 465.9 Office Visit 08/07/2011 10:15[place] [address] 724.2 724.4 461.9 Office Visit 07/30/2011 9:30[place] [address] 724.2 724.4 716.90 Office Visit 07/17/2011 10:00[place] [address] 724.5 724.5 719.45 719.45 716.90 716.90 Office Visit 06/26/2011 9:00a [place] [address] 401.9 272.4 274.9 790.29 Office Visit 07/04/2010 9:15a [place] [address] 401.1 272.4 530.81 716.90 Office Visit 03/05/2010 9:30a [place] [address] 272.4 401.1 274.9 530.11 Office Visit 09/03/2009 8:30[place] [address] 530.81 274.9 272.4 733.00 Office Visit 05/30/2009 9:45a [place] [address] 389.20 Office Visit 03/01/2009 8:30[place] [address] 530.81 274.9 272.4 733.00 Office Visit 10/30/2008 8:45a [place] [address] 530.81 274.9 272.4 401.9 Office Visit 07/31/2008 9:00a [place] [address] 401.1 530.81 274.9 272.4 Office Visit 03/29/2008 8:30a [place] [address] 443.9 401.9 272.4 530.81 Office Visit 01/27/2008 8:45a [place] [address] 724.3 724.2 274.9 Office Visit 01/10/2008 9:45a [place] [address] 724.5 724.3 274.9 Office Visit 01/03/2008 9:30a [place] [address] 724.5 724.3 756.11 Office Visit 12/29/2007 9:15a [place] [address] 724.2 724.3 788.41 Office Visit 12/21/2007 2:30p [place] [address] 720.2 724.3 599.0 Office Visit 11/30/2007 10:30a [place] [address] 401.9 272.4 530.81 477.0 Office Visit 06/03/2007 9:45a [place] [address] 465.9 461.9 Office Visit 05/10/2007 9:00a [place] [address] 401.9 272.4 274.9 790.22 Office Visit 03/11/2007 8:00a [place] [address] 272.4 401.9 724.5 790.22 Office Visit 02/08/2007 9:30a Main Office Robin Oscar M.D. 77050 300.00 Office Visit 01/25/2007 2:00p Main Office Robin Oscar M.D. 90705 300.00 Plan of Care 03/09/2018 - Robin Oscar M.D.B02.9 Zoster without complicationsNew Medication:Acyclovir 200 mgAcyclovir 800 mgFamciclovir 500 mg
[2018-03-21 12:12] VITALS: BP 135/53
--- NOTE | 2018-03-21 12:57 | UC ---
Skin Complaint HPI - HPI Summary HPI Summary: 88 year old female presents with painful, pruritic rash to right arm, forehead, and scalp. Describes pain as a "burning" sensation. Wakens her from sleep at times. States she was seen by her PCP on 03/09/2018 and diagnosed with shingles. She had had been having symptoms for about 1 week at that time. Lesion started on her right upper arm and then appeared on scalp, forehead, and right eyelid. She was started on 10 day course of acyclovir 800 mg TID which she completed a couple days ago. States there has been no improvement in symptoms. Denies fever, chills, visual disturbances, eye pain, eye redness, or discharge. She has taken acetaminophen for pain with little improvement. - History of Current Complaint Chief Complaint: UCSkin Time Seen by Provider: 03/21/18 12:28 Stated Complaint: SKIN COMPLAINT Hx Obtained From: Patient Onset/Duration: Gradual Onset, Lasting Days Onset Severity: Mild Current Severity: Moderate Pain Intensity: 8 Location: Other - disseminated Character: Pruritus, Pain Aggravating Factor(s): Touch Alleviating Factor(s): Nothing - Allergy/Home Medications Allergies/Adverse Reactions: Allergies Allergy/AdvReac Type Severity Reaction Status Date / Time nitrofurantoin Allergy Hives Verified 03/21/18 13:17 [From Macrobid] Penicillins Allergy Hives Verified 03/21/18 13:17 phenobarbital Allergy Hives Verified 03/21/18 13:17 sulfamethoxazole Allergy Hives Verified 03/21/18 13:17 [From Bactrim] trimethoprim [From Bactrim] Allergy Hives Verified 03/21/18 13:17 Review of Systems Constitutional: Negative Skin: Rash Eyes: Negative Respiratory: Negative Cardiovascular: Negative Is Patient Immunocompromised?: No All Other Systems Reviewed And Are Negative: Yes PMH/Surg Hx/FS Hx/Imm Hx - Additional Past Medical History Additional PMH: noncontributory Previously Healthy: Yes - Surgical History Surgical History: Yes Surgery Procedure, Year, and Place: YOUNG CHILD APPENDECTOMY BALM. 1959 GALLBLADER BALM. 1974 HYSTERECTOMY [place]. [place] [facility] [place]. shoulder RCT repair - Family History Known Family History: Positive: Cardiac Disease, Hypertension Negative: Diabetes - Social History Occupation: Retired Lives: Alone Alcohol Use: None Substance Use Type: None Smoking Status (MU): Never Smoked Tobacco Have You Smoked in the Last Year: No - Immunization History Most Recent Influenza Vaccination: 2015 Most Recent Tetanus Shot: 2011 Most Recent Pneumonia Vaccination: 2011 Physical Exam Triage Information Reviewed: Yes Appearance: Well-Appearing, No Pain Distress Vital Signs: Initial Vital Signs Temp 98.6 F 03/21/18 12:02 Pulse 73 03/21/18 12:02 Resp 17 03/21/18 12:02 BP 135/53 03/21/18 12:02 Pulse Ox 100 03/21/18 12:02 Vital Signs Reviewed: Yes Eye Exam: Normal Neck: Positive: No Lymphadenopathy Respiratory: Positive: No respiratory distress Neurological: Positive: Alert Skin: Positive: Other - discrete, disseminated, erythematous, pruritic, painful , scaly lesions noted to right upper arm, scalp, right side of forehead, and right eyelid Course/Dx - Course Course Of Treatment: 88 year old female with painful, pruritic lesions for approximately 3 weeks. She was evaluated by PCP and treated for disseminated herpes zoster with 10 day course of acyclovir 800 mg TID with no improvement. There does not appear to be any progression of the lesions and no evidence of eye involvement. Case was discussed and patient was co-evaluated with Dr. Black. Rash appears consistent with a disseminated herpes zoster. Recommend second course of antiviral therapy. Will treat with valacyclovir 1000mg TID x 7 days. Obtained a scraping of the lesion on her right upper arm and will send for varicella zoster PCR. Recommend patient follow up with PCP within 7 days for follow up and provided referral to dermatology for evaluation. - Diagnoses Provider Diagnoses: disseminated herpes zoster Discharge - Sign-Out/Discharge Documenting (check all that apply): Patient Departure All imaging exams completed and their final reports reviewed: No Studies - Discharge Plan Condition: Stable Disposition: HOME Prescriptions: Valacyclovir HCl [Valacyclovir] 1 gm PO Q8HR #21 tab Patient Education Materials: Shingles (ED) Referrals: Jossie Mc PA [Primary Care Provider] - 7 Days Larissa Gee MD [Medical Doctor] - 3 Days (Call for appointment) Additional Instructions: Start Valacyclovir 1 capsule every 8 hours for 7 days. We have sent a culture to try to verify the diagnosis. I have provided you with a referral to dermatology, Dr. Gee, for further evaluation. Call on Thursday to schedule the appointment. You should also call and schedule a follow up with your primary care provider within 7 days. - Billing Disposition and Condition Condition: STABLE Disposition: Home
== END 2018-03-21 13:17 | disposition home or self-care (01) ==
LOC: UCCORT 10:43
DX: B02.7 Disseminated zoster (principal); Z88.0 Allergy status to penicillin; Z88.8 Allergy status to other drugs, medicaments and biological substances; Z88.2 Allergy status to sulfonamides
CPT/HCPCS: 87798; 99212; G0463

== ENCOUNTER 2018-12-31 14:33 | Emergency (ER) | payer MEDICARE ==
--- OUTSIDE RECORDS SUMMARY | 2018-12-31 16:32 | XMS REPORT | Continuity of Care Document ---
:1930 External Reference #:[id number] Author Name Jennifer Neal Care Team Providers Name Role Phone Robin Oscar MD Primary Care Physician Unavailable Payers Date Identification Numbers Payment Provider Subscriber Effective: 1996 Policy Number: [id number] Medicare Neda Glynn Group Name: Medicare [address] PayID: [id number] [place] [address] Policy Number: [id number] [facility] Neda Glynn PayID: [id number] [address] [place] [address] Problems Active Problems Provider Date Cervical spondylosis with myelopathy Will Herron M.D. Onset: 05/02/2015 Sciatica Onset: 06/14/2018 Low back pain Onset: 06/14/2018 Thoracic and lumbosacral neuritis Onset: 06/14/2018 Malignant tumor of small intestine Onset: 06/14/2018 Herpes zoster without complication Onset: 06/14/2018 Abnormal glucose level Onset: 06/14/2018 Allergic rhinitis Onset: 06/14/2018 Essential hypertension Onset: 08/23/2015 Benign essential hypertension Onset: 06/26/2011 Hyperlipidemia Onset: 06/26/2011 Gastroesophageal reflux disease Onset: 06/26/2011 Gout Onset: 06/26/2011 Peripheral vascular disease Onset: 06/26/2011 Congenital spondylolysis of lumbosacral Onset: 06/26/2011 region Impaired glucose tolerance test Onset: 06/26/2011 Anxiety state Onset: 06/26/2011 Family History Date Family Member(s) Observation Comments General Cancer Father due to Cancer () Mother due to Cancer () First Brother due to Coronary Artery Disease () Second Brother due to Coronary Artery Disease () First Sister due to Cancer () Social History Type Date Description Comments Sex Unknown Marital Status Lives With Alone ETOH Use Denies alcohol use Tobacco Use Start: Unknown Patient has never smoked Recreational Drug Use Denies Drug Use Smoking Status Reviewed: 11/30/18 Patient has never smoked Allergies, Adverse Reactions, Alerts Active Allergies Reaction Severity Comments Date Penicillin 03/23/2015 Phenobarbital 03/23/2015 Bactrim 03/23/2015 Erythromycin 03/23/2015 Nitrofurantoin, Macrocrystals / Free Text 07/30/2018 Nitrofurantoin, Monohydrate Medications Active Medications SIG Qnty Indications Ordering Date Provider Shingrix administer first 2units Z23 Robin 10/19/2018 50mcg/0.5ML injection and then MD Dayne Suspension Rec second injection in 6 months Gabapentin Take One Capsule By 60caps M47.12 Robin 03/23/2015 100mg Mouth Every Night AT MD Dayne Capsules Bedtime For 1 Week, If Pain Persists Take 2 Capsules AT Bedtime Walker/Four Post due to inability to 1units Will Bruner 03/30/2012 walk from myelopathy Nini Herron [facility] due to T11-L1 conus compression, post-op decompressive laminectomy. Aspir-81 1 by mouth every day Unknown 81mg Tablets DR Multivitamins 1 by mouth every day Unknown Capsules Calcium 1 po qd Unknown Capsules Tylenol Arthritis 2 by mouth every 8 Unknown Pain hours as needed 650mg Tablets ER History Medications Famciclovir one pill three 21tabs L30.9 Robin 09/17/2018 - 500mg times a day MD Dayne 10/24/2018 Tablets Lidoderm 1 patch on 12 2units M51.16 Robin 07/29/2018 - 5% Patches hours then off MD Dayne 10/19/2018 12 hours Ketoconazole wash scalp 8units Robin 05/13/2018 - 2% 2-three times a MD Dayne 06/23/2018 Shampoo week as directed Doxycycline Hyclate 1 by mouth 20caps L03.811 Robin 03/30/2018 - twice a day MD Dayne 05/13/2018 100mg Capsules Acyclovir 1 tid 30tabs B02.9 [place] 03/09/2018 - 800mg MD Dayne 03/22/2018 Tablets Acyclovir 1 by mouth five 50caps B02.9 [place] 03/09/2018 - 200mg times a day MD Dayne 03/22/2018 Capsules Famciclovir 1 by mouth 21tabs B02.9 [place] 03/09/2018 - 500mg three times a MD Dayne 03/09/2018 Tablets day Prednisone day 1and day 2 9tabs M54.5 [place] 01/12/2018 - 20mg two tablets MD Dayne 01/28/2018 Tablets qd,then day3,4,5 one qd,the one half tabletday 6,7,8,9 Gabapentin day number one 90caps M54.5 [place] 01/12/2018 - 300mg pill, day 2 one MD Dayne 01/19/2018 Capsules pill twice daily, then one pill three times daily Metoclopramide HCL one tablet 42tabs K21.9 [place] 10/02/2016 - three times a MD Dayne 03/23/2017 5mg Tablets day as needed for nausea 30 minutes before meal Levofloxacin 1 by mouth 7tabs N39.0 [place] 11/22/2015 - 500mg every day MD Dayne 12/25/2015 Tablets Levofloxacin 1 by mouth 7tabs N39.0 [place] 10/02/2015 - 500mg every day MD Dayne 11/16/2015 Tablets Oxycodone HCL 1/2 - 1 - 2 by 90tabs Will Herron, 05/02/2015 - 5mg mouth four M.D. 06/12/2015 Tablets times a day as needed for pain. Naproxen 1 by mouth 30tabs Will Herron, 03/23/2015 - 375mg twice a day as M.D. 06/12/2015 Tablets needed pain. take with food. Prednisone day 1and day 2 9tabs M54.2 Robin 03/08/2015 - 20mg two tablets MD Dayne 05/01/2015 Tablets qd,then day3,4,5 one qd,the one half tabletday 6,7,8,9 Zithromax day number one 6tabs 478.9 Robin 05/30/2014 - 250mg two qd,thendays MD Dayne 08/10/2014 Tablets two thru five one pill every day [facility] Omeprazole 1 By Mouth 180tabs K21.0 Robin 10/13/2013 - 20mg Twice A Day MD Dayne 11/16/[address] [place] One bid prn 10tabs 530.11 Robin 05/05/2013 - 8mg Tablets Nausea MD Dayne 07/13/2013 Doxycycline Hyclate 1 po bid 14caps Robin 04/28/2013 - MD [place] 05/05/2013 100mg Capsules Cipro 1 po bid 20tabs 599.89 Robin 04/13/2013 - 500mg Tablets MD [place] 05/05/2013 Zocor one evening qd 90tabs 272.4 Robin 02/20/2012 - 10mg Tablets MD [place] 06/06/2015 Tramadol HCL 1-2 po qid prn 45tabs Will Herron, 02/15/2012 - 50mg pain. M.D. 03/23/2015 Tablets Oxycodone/Acetaminop 1-2 po qid prn 45tabs Will Herron, 02/10/2012 - hen pain M.D. 03/23/2015 5-325mg Tablets Minocin one bid 20units Robin 08/07/2011 - 100mg MD [place] 02/04/2012 Solution Rec Mobic one qd 30tabs Robin 07/17/2011 - 7.5mg Tablets MD [place] 08/07/2011 Calcium 600 Robin 06/26/2011 - 600mg MD [place] 06/06/2015 Tablets Prilosec OTC one bid 180tabs Robin 06/26/2011 - 20mg MD [place] 05/05/2013 Tablets Valacyclovir HCL Unknown - 1gm 04/06/2018 Tablets Neomycin Sulfate Unknown - 03/23/2017 500mg Tablets Erythromycin Base Unknown - 03/23/2017 500mg Tablets Prednisone Unknown - 10mg 08/13/2016 Tablets Ventolin HFA Inhale 1-2 Unknown - Puffs PO Q 4-6 01/28/2018 108(90Base) mcg/Act H PRF SOB Aerosol Crestor Unknown - 5mg Tablets 06/26/2011 Zocor 272.4 Unknown - 40mg Tablets 08/07/2011 Miralax 17 gm every day Unknown - 3350NF Packet as needed 10/19/2018 Allopurinol 1 by mouth Unknown - 100mg every day 10/19/2018 Tablets Lisinopril 1 by mouth Unknown - 2.5mg every day 10/19/2018 Tablets Omeprazole 1 by mouth bid Unknown - 20mg 10/19/[address] Simvastatin take 1 tablet Unknown - 10mg at bedtime 10/19/2018 Tablets Verapamil HCL ER 1 by mouth Unknown - every day 06/12/2015 240mg Tablets ER Immunizations CPT Code Status Date Vaccine Lot # [id number] Given 07/29/2018 Fluzone High Dose 49120 Given 01/28/2018 Tdap - Tetanus/Diptheria/Acellular Pertussis 64389 Given 03/23/2017 Pneumococcal Conjugate Vaccine 13 Valent For Intramuscular Use 81513 Given 03/23/2017 Fluzone High Dose 29547 Given 05/13/2016 Fluzone High Dose 05302 Given 03/29/2015 Fluzone High Dose 74079 Given 05/10/2014 Fluzone High Dose 66518 Given 04/13/2013 Fluzone High Dose 73355 Given 04/12/2012 Fluzone High Dose 12066 Given 03/19/2011 Influenza Virus 3Yrs & Over 71142 Given 04/30/1999 Flu Vaccine 77068 Given 05/17/1997 Flu Vaccine 90928 Given 01/26/1997 Tetanus Toxoid Adsorbed, For Intramuscular Use 31911 Given 06/23/1995 Flu Vaccine 18782 Given 04/17/1994 Flu Vaccine 10891 Given 05/03/1993 Flu Vaccine Vital Signs Date Vital Result Comment 11/26/2018 9:13am Height 60 inches 5'0" Weight 141.06 lb BP Systolic Sitting 140 mmHg BP Diastolic Sitting 80 mmHg Respiratory Rate 12 /min Body Temperature 98.0 F BMI (Body Mass Index) 27.5 kg/m2 10/19/2018 10:02am Weight 145.00 lb BP Systolic Sitting 108 mmHg BP Diastolic Sitting 50 mmHg 09/17/2018 9:28am Weight 146.00 lb BP Systolic Sitting 118 mmHg BP Diastolic Sitting 60 mmHg 07/29/2018 2:37pm Weight 146.00 lb BP Systolic 120 mmHg BP Diastolic 70 mmHg 06/08/2018 10:27am Weight 144.00 lb BP Systolic 130 mmHg BP Diastolic 80 mmHg 05/12/2018 10:04am Weight 146.00 lb Heart Rate 76 /min BP Systolic 134 mmHg BP Diastolic 82 mmHg Respiratory Rate 16 /min Body Temperature 98.4 F 04/06/2018 8:57am Weight 143.00 lb BP Systolic 130 mmHg BP Diastolic 54 mmHg 03/30/2018 1:36pm Weight 141.00 lb BP Systolic 124 mmHg BP Diastolic 72 mmHg 03/23/2018 11:09am Weight 141.00 lb 03/09/2018 12:07pm Weight 144.00 lb BP Systolic 144 mmHg BP Diastolic 88 mmHg 01/28/2018 9:40am Height 61 inches Weight 143.00 lb Heart Rate 74 /min BP Systolic 122 mmHg BP Diastolic 66 mmHg Respiratory Rate 16 /min BMI (Body Mass Index) 27.0 kg/m2 01/19/2018 10:38am Weight 144.00 lb Heart Rate 57 /min BP Systolic 122 mmHg BP Diastolic 64 mmHg Respiratory Rate 16 /min 01/12/2018 3:12pm Weight 143.00 lb BP Systolic 118 mmHg BP Diastolic 76 mmHg 11/10/2017 4:26pm Weight 144.00 lb BP Systolic 120 mmHg BP Diastolic 68 mmHg 08/04/2017 4:28pm Weight 146.00 lb 08/04/2017 5:43pm BP Systolic 120 mmHg BP Diastolic 78 mmHg 05/14/2017 4:17pm Weight 138.00 lb BP Systolic 112 mmHg BP Diastolic 70 mmHg 03/23/2017 4:15pm Weight 141.00 lb BP Systolic 118 mmHg BP Diastolic 70 mmHg 02/12/2017 3:58pm Height 60.50 inches Weight 154.00 lb Heart Rate 64 /min BP Systolic 122 mmHg BP Diastolic 70 mmHg Respiratory Rate 16 /min Body Temperature 97.9 F BMI (Body Mass Index) 29.6 kg/m2 10/28/2016 3:11pm Weight 153.00 lb BP Systolic 120 mmHg BP Diastolic 78 mmHg 10/16/2016 2:03pm Weight 146.00 lb BP Systolic 118 mmHg BP Diastolic 70 mmHg 10/02/2016 1:02pm Weight 149.00 lb BP Systolic 120 mmHg BP Diastolic 80 mmHg 08/12/2016 4:28pm Weight 146.00 lb BP Systolic 120 mmHg BP Diastolic 60 mmHg 06/10/2016 9:10am Weight 145.00 lb Heart Rate 60 /min BP Systolic 122 mmHg BP Diastolic 70 mmHg 02/11/2016 1:04pm Height 60.6 inches Weight 144.00 lb Heart Rate 60 /min BP Systolic 120 mmHg BP Diastolic 70 mmHg Respiratory Rate 12 /min Body Temperature 98.8 F BMI (Body Mass Index) 27.6 kg/m2 12/25/2015 4:02pm Weight 146.00 lb 11/22/2015 4:00pm Weight 144.00 lb BP Systolic 124 mmHg BP Diastolic 78 mmHg 07/24/2015 10:41am Weight 141.00 lb 07/23/2015 2:52pm Height 64 inches 5'4" Weight 141.00 lb Heart Rate 76 /min BP Systolic Sitting 122 mmHg BP Diastolic Sitting 80 mmHg Pain Level 3 BMI (Body Mass Index) 24.2 kg/m2 07/05/2015 4:04pm Weight 130.00 lb BP Systolic 120 mmHg BP Diastolic 70 mmHg 06/19/2015 10:51am Weight 134.00 lb BP Systolic 124 mmHg BP Diastolic 68 mmHg 06/13/2015 2:02pm Height 64 inches 5'4" Weight 130.00 lb Heart Rate 80 /min BP Systolic Sitting 124 mmHg BP Diastolic Sitting 74 mmHg BMI (Body Mass Index) 22.3 kg/m2 06/06/2015 12:57pm Weight 129.00 lb BP Systolic 120 mmHg BP Diastolic 70 mmHg 05/07/2015 9:35am Weight 142.00 lb BP Systolic 124 mmHg BP Diastolic 70 mmHg 05/02/2015 3:33pm Height 64 inches 5'4" Weight 135.00 lb Heart Rate 64 /min BP Systolic 118 mmHg BP Diastolic 60 mmHg BMI (Body Mass Index) 23.2 kg/m2 05/01/2015 12:59pm Weight 139.00 lb BP Systolic 140 mmHg BP Diastolic 68 mmHg 03/23/2015 3:05pm Height 64 inches 5'4" Weight 133.00 lb Heart Rate 62 /min BP Systolic Sitting 114 mmHg BP Diastolic Sitting 84 mmHg Pain Level 8 back BMI (Body Mass Index) 22.8 kg/m2 03/08/2015 4:29pm Weight 131.00 lb BP Systolic 110 mmHg BP Diastolic 66 mmHg 02/07/2015 1:06pm Height 61 inches Weight 135.00 lb Heart Rate 60 /min BP Systolic 112 mmHg BP Diastolic 70 mmHg Respiratory Rate 14 /min Body Temperature 98.0 F BMI (Body Mass Index) 25.5 kg/m2 11/08/2014 1:01pm Height 61 inches Weight 137.00 lb BP Systolic 118 mmHg BP Diastolic 74 mmHg BMI (Body Mass Index) 25.9 kg/m2 08/10/2014 12:50pm Weight 140.00 lb BP Systolic 118 mmHg BP Diastolic 80 mmHg 05/30/2014 3:45pm Weight 139.00 lb BP Systolic 128 mmHg BP Diastolic 76 mmHg Body Temperature 98.9 F 05/10/2014 10:04am Weight 140.00 lb BP Systolic 120 mmHg BP Diastolic 72 mmHg 02/06/2014 10:52am Height 61.6 inches Weight 138.00 lb Heart Rate 60 /min BP Systolic 154 mmHg BP Diastolic 78 mmHg Respiratory Rate 14 /min Body Temperature 98.0 F BMI (Body Mass Index) 25.6 kg/m2 02/06/2014 11:25am BP Systolic 138 mmHg BP Diastolic 84 mmHg 01/11/2014 2:33pm Weight 143.00 lb BP Systolic 130 mmHg BP Diastolic 70 mmHg 10/13/2013 1:45pm Height 62 inches Weight 147.00 lb BP Systolic 130 mmHg BP Diastolic 80 mmHg BMI (Body Mass Index) 26.9 kg/m2 07/13/2013 10:20am Weight 154.00 lb BP Systolic 130 mmHg BP Diastolic 80 mmHg 06/13/2013 10:28am Weight 154.00 lb BP Systolic 140 mmHg BP Diastolic 80 mmHg 05/05/2013 9:14am Weight 158.00 lb BP Systolic 130 mmHg BP Diastolic 78 mmHg 04/27/2013 9:49am Weight 151.00 lb BP Systolic 140 mmHg BP Diastolic 80 mmHg 04/13/2013 2:35pm Weight 158.00 lb BP Systolic 130 mmHg BP Diastolic 80 mmHg Body Temperature 98.8 F 02/03/2013 9:54am Height 62 inches Weight 155.00 lb Heart Rate 64 /min BP Systolic 130 mmHg BP Diastolic 60 mmHg Respiratory Rate 12 /min Body Temperature 98.4 F BMI (Body Mass Index) 28.3 kg/m2 09/21/2012 11:15am Weight 157.00 lb BP Systolic 150 mmHg BP Diastolic 90 mmHg 02/20/2012 8:52am Height 65 inches Weight 163.00 lb Heart Rate 73 /min BP Systolic 120 mmHg BP Diastolic 70 mmHg Body Temperature 98.8 F BMI (Body Mass Index) 27.1 kg/m2 02/03/2012 2:19pm Height 65 inches Weight 163.00 lb Heart Rate 60 /min BP Systolic 128 mmHg BP Diastolic 68 mmHg Respiratory Rate 14 /min Body Temperature 98.6 F BMI (Body Mass Index) 27.1 kg/m2 08/07/2011 10:52am Weight 161.00 lb BP Systolic 118 mmHg BP Diastolic 60 mmHg Body Temperature 96.9 F 07/30/2011 9:57am Weight 161.00 lb BP Systolic 134 mmHg BP Diastolic 80 mmHg 07/17/2011 10:02am Weight 161.00 lb BP Systolic 140 mmHg BP Diastolic 80 mmHg 06/26/2011 9:20am Weight 161.00 lb BP Systolic 120 mmHg BP Diastolic 80 mmHg Results Test Date Facility Test Result H/L Range Note Urine Culture And 12/01/2018 [facility] Urine Culture SEE RESULT 1, [address] [place] [address] [phone] Basic Metabolic 11/26/2018 [facility] Sodium 142 mmol/L N 135- [address] [place] [address] [phone] Potassium 5.0 mmol/L N 3.5-5.0 Chloride 107 mmol/L N 101-111 Co2 Carbon Dioxide 26 mmol/L N 22-32 Anion Gap 9 mmol/L N 2-11 Glucose 100 mg/dL N 70-100 Blood Urea Nitrogen 30 mg/dL High 6-24 Creatinine 1.07 mg/dL High 0.51-0.95 BUN/Creatinine Ratio 28.0 High 8-20 Calcium 10.3 mg/dL N 8.6-10.3 Egfr Non- 48.6 >60 Egfr 58.8 >60 3 CBC Auto Diff 11/26/2018 [facility] White Blood 9.5 10^3/uL N 3.5-10.[address] [place] [address] [phone] Red Blood Count 4.22 10^6/uL N 3.70-4.87 Hemoglobin 11.4 g/dL Low 12.0-16.0 Hematocrit 36 % N 35-47 Mean Corpuscular Volume 85 fL N 80-97 Mean Corpuscular Hemoglobin 27 pg N 27-31 Mean Corpuscular HGB Conc 32 g/dL N 31-36 Red Cell Distribution Width 17 % High 10.5-15 Platelet Count 307 10^3/uL N 150-450 Mean Platelet Volume 8.5 fL N 7.4-10.4 Abs Neutrophils 6.4 10^3/uL N 1.5-7.7 Abs Lymphocytes 2.2 10^3/uL N 1.0-4.8 Abs Monocytes 0.7 10^3/uL N 0-0.8 Abs Eosinophils 0.2 10^3/uL N 0-0.6 Abs Basophils 0.1 10^3/uL N 0-0.2 Abs Nucleated RBC 0.0 10^3/uL Granulocyte % 67.1 % Lymphocyte % 22.7 % Monocyte % 7.5 % Eosinophil % 2.2 % Basophil % 0.5 % Nucleated Red Blood Cells % 0.0 Liver Function 11/26/2018 [facility] Total Protein 7.8 g/dL N 6.4-8.9 Panel [address] [place] [address] [phone] Albumin 4.8 g/dL N 3.2-5.2 Globulin 3.0 g/dL N 2-4 Albumin/Globulin Ratio 1.6 N 1-3 Total Bilirubin 0.60 mg/dL N 0.2-1.0 Direct Bilirubin 0.10 mg/dL N 0.03-0.18 Indirect Bilirubin 0.5 mg/dL N 0.3-1.0 Alkaline Phosphatase 50 U/L N 34-104 Alt 11 U/L N 7-52 Ast 19 U/L N 13-39 Lipid Profile 11/26/2018 [facility] Triglycerides 252 mg/dL 4 (Trig/Chol/HDL) [address] [place] [address] [phone] Cholesterol 246 mg/dL 5 HDL Cholesterol 53.1 mg/dL 6 LDL Cholesterol 143 mg/dL 7 Laboratory test 11/26/2018 [facility] TSH (Thyroid 1.26 mcIU/mL N 0.34-5.[address] Stim Horm) [place] [address] [phone] Hemoglobin A1c (Glyco HGB) 6.3 % High 4.0-5.6 8 Laboratory test finding 05/25/2018 N2N/CCD Import Uric Acid 7.3 mg/dL High 2.6-6 LDL Cholesterol Profile 05/25/2018 N2N/CCD Import Cholesterol 216 mg/dL High 9 HDL Cholesterol 49 mg/dL 10 LDL-Cholesterol 129 mg/dL 11 Triglycerides 190 mg/dL High 12 Varicella Zoster 03/21/2018 [facility] Varicella Zoster RT ARM Culture [address] Source [place], [place] [id number] [phone] Varicella Zoster Result Negative Negative 13 Laboratory test finding 01/28/2018 N2N/CCD Import Slide Review (See Note) 14, 15 Uric Acid 5.0 mg/dL 2.6-6 CBS W/Automated Diff 01/28/2018 N2N/CCD Import Bas% 0.1 % 0-1.1 Baso # 0.01 K/uL 0-0.1 Eo% 1.2 % 0-6.6 Eos # 0.14 K/uL 0-0.5 Hematocrit 34.2 % Low 36-46.1 Hemoglobin 10.7 gm/dL Low 11.6-15.8 Lymph # 2.68 K/uL 1-4 Lymph % 22.1 % 20-42 Mean Cell Volume 91.9 fl 80.9-99 Mean Corpuscular HGB 28.8 pg 25.9-32.7 Mean Corpuscular HGB Conc 31.3 g/dL 30.8-34.3 Mean Platelet Volume 11.4 fL 8.9-12.4 [place] # 0.83 K/uL 0.3-0.9 [place] % 6.8 % 4.3-13.2 Neut# 8.47 K/uL High 1.8-7 Neut% 69.8 % 40.4-72.8 Platelet Count 243 K/uL 155-360 Red Blood Count 3.72 M/uL Low 3.9-5.4 Red Cell Distri Width %CV 16.3 % High 11.7-14.4 Red Cell Distri Width SD 52.9 fl High 3-47 White Blood Count 12.1 K/uL High 3.1-10.7 Comprehensive Metabolic Panel 01/28/2018 N2N/CCD Import Alb/Glob 0.9 ratio Albumin 3.6 g/dL 3.4-5 Alkaline Phosphatase 70 U/L 45-117 Anion Gap 6 mEq/L Low 8-16 BUN 14 mg/dL 7-18 BUN/Creat 14.0 ratio Bilirubin,Total 0.5 mg/dL 0.2-1 Calcium 8.7 mg/dL 8.5-10.1 Carbon Dioxide 26 mmol/L 21-32 Chloride 110 mmol/L High 98-107 Creatinine 1.0 mg/dL 0.6-1.3 Globulin 3.8 g/dL 1.9-4.3 Glom Filtration Rate, Estimate 56 mL/min Glucose 84 mg/dL 74-106 If >60 mL/min 16 Potassium 4.2 mmol/L 3.5-5.1 SGPT/Alt 21 U/L 12-78 Sgot/Ast 18 U/L 15-37 Sodium 142 mmol/L 136-145 Total Protein 7.4 g/dL 6.4-8.2 LDL Cholesterol Profile 01/28/2018 N2N/CCD Import Cholesterol 165 mg/dL 17 HDL Cholesterol 51 mg/dL 18 LDL-Cholesterol 60 mg/dL 19 Triglycerides 272 mg/dL High 20 Laboratory test 11/10/2017 N2N/CCD Import Urine Culture And See Result 21, 22 finding Sensitivities Below Laboratory test 09/15/2017 N2N/CCD Import Ferritin 148 ng/mL 8-252 23 finding Slide Review (See Note) 24 CBS W/Automated Diff 09/15/2017 N2N/CCD Import Bas% 0.3 % 0-1.1 Baso # 0.03 K/uL 0-0.1 Eo% 1.6 % 0-6.6 Eos # 0.17 K/uL 0-0.5 Hematocrit 36.0 % 36-46.1 Hemoglobin 11.3 gm/dL Low 11.6-15.8 Lymph # 2.09 K/uL 1-4 Lymph % 20.1 % 20-42 Mean Cell Volume 94.2 fl 80.9-99 Mean Corpuscular HGB 29.6 pg 25.9-32.7 Mean Corpuscular HGB Conc 31.4 g/dL 30.8-34.3 Mean Platelet Volume 11.4 fL 8.9-12.4 [place] # 0.56 K/uL 0.3-0.9 [place] % 5.4 % 4.3-13.2 Neut# 7.57 K/uL High 1.8-7 Neut% 72.6 % 40.4-72.8 Platelet Count 258 K/uL 155-360 Red Blood Count 3.82 M/uL Low 3.9-5.4 Red Cell Distri Width %CV 19.7 % High 11.7-14.4 Red Cell Distri Width SD 65.4 fl High 3-47 White Blood Count 10.4 K/uL 3.1-10.7 Comprehensive Metabolic Panel 09/15/2017 N2N/CCD Import Alb/Glob 1.0 ratio Albumin 3.8 g/dL 3.4-5 Alkaline Phosphatase 68 U/L 45-117 Anion Gap 9 mEq/L 8-16 BUN 32 mg/dL High 7-18 BUN/Creat 29.0 ratio Bilirubin,Total 0.5 mg/dL 0.2-1 Calcium 9.5 mg/dL 8.5-10.1 Carbon Dioxide 23 mmol/L 21-32 Chloride 112 mmol/L High 98-107 Creatinine 1.1 mg/dL 0.6-1.3 Globulin 3.9 g/dL 1.9-4.3 Glom Filtration Rate, Estimate 50 mL/min Glucose 113 mg/dL High 74-106 If >60 mL/min 25 Potassium 4.4 mmol/L 3.5-5.1 SGPT/Alt 15 U/L 12-78 Sgot/Ast 16 U/L 15-37 Sodium 144 mmol/L 136-145 Total Protein 7.7 g/dL 6.4-8.2 Iron-Tibc-%Sat 09/15/2017 N2N/CCD Import Serum Iron 73 g/dL 50-170 Total Iron Binding Capacity 409 g/dL 250-450 Transferrin %Saturation 18 % 12-57 Laboratory test finding 08/15/2017 N2N/CCD Import Cea 7.5 ng/mL 26, 27 Ferritin 11 ng/mL 8-252 CBS W/Automated Diff 08/15/2017 N2N/CCD Import Bas% 0.2 % 0-1.1 Baso # 0.02 K/uL 0-0.1 Eo% 2.2 % 0-6.6 Eos # 0.18 K/uL 0-0.5 Hematocrit 35.3 % Low 36-46.1 Hemoglobin 11.1 gm/dL Low 11.6-15.8 Lymph # 1.94 K/uL 1-4 Lymph % 24.1 % 20-42 Mean Cell Volume 89.6 fl 80.9-99 Mean Corpuscular HGB 28.2 pg 25.9-32.7 Mean Corpuscular HGB Conc 31.4 g/dL 30.8-34.3 Mean Platelet Volume 10.4 fL 8.9-12.4 [place] # 0.62 K/uL 0.3-0.9 [place] % 7.7 % 4.3-13.2 Neut# 5.30 K/uL 1.8-7 Neut% 65.8 % 40.4-72.8 Platelet Count 273 K/uL 155-360 Red Blood Count 3.94 M/uL 3.9-5.4 Red Cell Distri Width %CV 16.4 % High 11.7-14.4 Red Cell Distri Width SD 52.6 fl High 3-47 White Blood Count 8.1 K/uL 3.1-10.7 Comprehensive Metabolic Panel 08/15/2017 N2N/CCD Import Alb/Glob 0.9 ratio Albumin 3.6 g/dL 3.4-5 Alkaline Phosphatase 70 U/L 45-117 Anion Gap 9 mEq/L 8-16 BUN 25 mg/dL High 7-18 BUN/Creat 25.0 ratio Bilirubin,Total 0.3 mg/dL 0.2-1 Calcium 9.3 mg/dL 8.5-10.1 Carbon Dioxide 25 mmol/L 21-32 Chloride 109 mmol/L High 98-107 Creatinine 1.0 mg/dL 0.6-1.3 Globulin 3.8 g/dL 1.9-4.3 Glom Filtration Rate, Estimate 56 mL/min Glucose 117 mg/dL High 74-106 If >60 mL/min 28 Potassium 4.5 mmol/L 3.5-5.1 SGPT/Alt 18 U/L 12-78 Sgot/Ast 15 U/L 15-37 Sodium 143 mmol/L 136-145 Total Protein 7.4 g/dL 6.4-8.2 Iron-Tibc-%Sat 08/15/2017 N2N/CCD Import Serum Iron 32 g/dL Low 50-170 Total Iron Binding Capacity 446 g/dL 250-450 Transferrin %Saturation 7 % Low 12-57 Laboratory test finding 05/15/2017 N2N/CCD Import Hemoglobin A1c 6.2 % High 4-5.6 29 Uric Acid 4.9 mg/dL 2.3-6.6 Laboratory test finding 03/24/2017 N2N/CCD Import Cea 6.5 ng/mL 30, 31 Slide Review . 32 CBS W/Automated Diff 03/24/2017 N2N/CCD Import Bas% 0.2 % 0-1.1 Baso # 0.02 K/uL 0-0.1 Eo% 2.8 % 0-6.6 Eos # 0.32 K/uL 0-0.5 Hematocrit 31.8 % Low 36-46.1 Hemoglobin 10.2 gm/dL Low 11.6-15.8 Lymph # 1.76 K/uL 1-4 Lymph % 15.3 % Low 20-42 Mean Cell Volume 96.7 fl 80.9-99 Mean Corpuscular HGB 31.0 pg 25.9-32.7 Mean Corpuscular HGB Conc 32.1 g/dL 30.8-34.3 Mean Platelet Volume 11.4 fL 8.9-12.4 [place] # 0.87 K/uL 0.3-0.9 [place] % 7.6 % 4.3-13.2 Neut# 8.50 K/uL High 1.8-7 Neut% 74.1 % High 40.4-72.8 Platelet Count 262 K/uL 150-400 Red Blood Count 3.29 M/uL Low 3.9-5.4 Red Cell Distri Width %CV 15.7 % High 11.7-14.4 Red Cell Distri Width SD 53.8 fl High 3-47 White Blood Count 11.5 K/uL High 3.1-10.7 Comprehensive Metabolic Panel 03/24/2017 N2N/CCD Import Alb/Glob 0.8 ratio Albumin 3.1 g/dL Low 3.4-5 Alkaline Phosphatase 89 U/L 45-117 Anion Gap 8 mEq/L 8-16 BUN 23 mg/dL High 7-18 BUN/Creat 15.3 ratio Bilirubin,Total 0.5 mg/dL 0.2-1 Calcium 9.0 mg/dL 8.5-10.1 Carbon Dioxide 27 mmol/L 21-32 Chloride 103 mmol/L 98-107 Creatinine 1.5 mg/dL High 0.6-1.3 Globulin 4.1 g/dL 1.9-4.3 Glom Filtration Rate, Estimate 35 mL/min Glucose 98 mg/dL 74-106 If 42 mL/min 33 Potassium 4.8 mmol/L 3.5-5.1 SGPT/Alt 19 U/L 12-78 Sgot/Ast 16 U/L 15-37 Sodium 138 mmol/L 136-145 Total Protein 7.2 g/dL 6.4-8.2 Iron-Tibc-%Sat 03/24/2017 N2N/CCD Import Serum Iron 56 g/dL 50-170 Total Iron Binding Capacity 309 g/dL 250-450 Transferrin %Saturation 18 % 12-57 Basic Metabolic Panel 03/02/2017 N2N/CCD Import Anion Gap 9 mEq/L 8-16 34 BUN 11 mg/dL 7-18 BUN/Creat 15.7 ratio Calcium 7.8 mg/dL Low 8.5-10.1 Carbon Dioxide 24 mmol/L 21-32 Chloride 105 mmol/L 98-107 Creatinine 0.7 mg/dL 0.6-1.3 Glom Filtration Rate, Estimate >60 mL/min Glucose 109 mg/dL High 74-106 If >60 mL/min 35 Potassium 3.6 mmol/L 3.5-5.1 Sodium 138 mmol/L 136-145 CBC 03/02/2017 N2N/CCD Import Hematocrit 29.4 % Low 36-46.1 Hemoglobin 10.0 gm/dL Low 11.6-15.8 Mean Cell Volume 93.0 fl 80.9-99 Mean Corpuscular HGB 31.6 pg 25.9-32.7 Mean Corpuscular HGB Conc 34.0 g/dL 30.8-34.3 Mean Platelet Volume 11.3 fL 8.9-12.4 Platelet Count 212 K/uL 150-400 Red Blood Count 3.16 M/uL Low 3.9-5.4 Red Cell Distri Width %CV 14.9 % High 11.7-14.4 White Blood Count 11.1 K/uL High 3.1-10.7 CBC 02/28/2017 N2N/CCD Import Hematocrit 31.9 % Low 36-46.1 Hemoglobin 10.5 gm/dL Low 11.6-15.8 Mean Cell Volume 95.5 fl 80.9-99 Mean Corpuscular HGB 31.4 pg 25.9-32.7 Mean Corpuscular HGB Conc 32.9 g/dL 30.8-34.3 Mean Platelet Volume 11.4 fL 8.9-12.4 Platelet Count 201 K/uL 150-400 Red Blood Count 3.34 M/uL Low 3.9-5.4 Red Cell Distri Width %CV 15.5 % High 11.7-14.4 White Blood Count 10.4 K/uL 3.1-10.7 Comprehensive Metabolic Panel 02/28/2017 N2N/CCD Import Alb/Glob 0.8 ratio Albumin 2.5 g/dL Low 3.4-5 Alkaline Phosphatase 61 U/L 45-117 Anion Gap 7 mEq/L Low 8-16 BUN 9 mg/dL 7-18 BUN/Creat 10.0 ratio Bilirubin,Total 0.4 mg/dL 0.2-1 Calcium 8.0 mg/dL Low 8.5-10.1 Carbon Dioxide 25 mmol/L 21-32 Chloride 107 mmol/L 98-107 Creatinine 0.9 mg/dL 0.6-1.3 Globulin 3.0 g/dL 1.9-4.3 Glom Filtration Rate, Estimate >60 mL/min Glucose 111 mg/dL High 74-106 If >60 mL/min 36 Potassium 3.7 mmol/L 3.5-5.1 SGPT/Alt 23 U/L 12-78 Sgot/Ast 16 U/L 15-37 Sodium 139 mmol/L 136-145 Total Protein 5.5 g/dL Low 6.4-8.2 Laboratory test finding 02/27/2017 N2N/CCD Import Aot Request Already done 37 Tests to be added: crp Laboratory test 02/27/2017 N2N/CCD Import C-Reactive 12.6 mg/L High finding Protein,Quant Laboratory test 02/26/2017 N2N/CCD Import Urine Culture No Growth: 38 finding Final <See Note> Urinalysis With 02/26/2017 N2N/CCD Import Source: Urine, Clean 39 Microscopic Cat <See Note> Urine Bilirubin - Dipstick Negative Urine Blood Negative Urine Clarity Clear Urine Color Yellow Urine Epithelial Cells Moderate /lpf 40 Urine Glucose - Dipstick Negative mg/dL Urine Ketone Negative mg/dL Urine Leuk Esterase Trace Abnormal Urine Nitrite - Dipstick Negative Urine PH 5.5 1 Low 6.5-7.5 Urine Protein - Dipstick Negative mg/dL Urine RBC None Seen rbc/hpf 0-2 Urine Specific [place] <=1.005 Low 1.01-1.03 Urine Urobilinogen - Dipstick 0.2 E.U./dL 0.2-1 Urine WBC 0-2 wbc/hpf 0-7 Laboratory test 02/26/2017 N2N/CCD Import Glycohemoglobin (A1c) 5.9 % 4.2-6.3 41 finding Magnesium 2.1 mg/dL 1.8-2.4 eAG 123 mg/dL Basic Metabolic Panel 02/26/2017 N2N/CCD Import Anion Gap 9 mEq/L 8-16 BUN 17 mg/dL 7-18 BUN/Creat 15.4 ratio Calcium 8.1 mg/dL Low 8.5-10.1 Carbon Dioxide 25 mmol/L 21-32 Chloride 107 mmol/L 98-107 Creatinine 1.1 mg/dL 0.6-1.3 Glom Filtration Rate, Estimate 50 mL/min Glucose 186 mg/dL High 74-106 If >60 mL/min 42 Potassium 4.5 mmol/L 3.5-5.1 Sodium 141 mmol/L 136-145 CBC 02/26/2017 N2N/CCD Import Hematocrit 28.6 % Low 36-46.1 Hemoglobin 9.6 gm/dL Low 11.6-15.8 Mean Cell Volume 94.4 fl 80.9-99 Mean Corpuscular HGB 31.7 pg 25.9-32.7 Mean Corpuscular HGB Conc 33.6 g/dL 30.8-34.3 Mean Platelet Volume 11.0 fL 8.9-12.4 Platelet Count 197 K/uL 150-400 Red Blood Count 3.03 M/uL Low 3.9-5.4 Red Cell Distri Width %CV 15.0 % High 11.7-14.4 White Blood Count 16.8 K/uL High 3.1-10.7 Laboratory test finding 02/25/2017 N2N/CCD Import Slide Review . 43 Basic Metabolic Panel 02/25/2017 N2N/CCD Import Anion Gap 11 mEq/L 8-16 BUN 18 mg/dL 7-18 BUN/Creat 13.8 ratio Calcium 8.0 mg/dL Low 8.5-10.1 Carbon Dioxide 23 mmol/L 21-32 Chloride 106 mmol/L 98-107 Creatinine 1.3 mg/dL 0.6-1.3 Glom Filtration Rate, Estimate 41 mL/min Glucose 303 mg/dL High 74-106 If 50 mL/min 44 Potassium 4.6 mmol/L 3.5-5.1 Sodium 140 mmol/L 136-145 CBS W/Automated Diff 02/25/2017 N2N/CCD Import Bas% 0.0 % 0-1.1 Baso # 0.00 K/uL 0-0.1 Eo% 0.0 % 0-6.6 Eos # 0.00 K/uL 0-0.5 Hematocrit 30.5 % Low 36-46.1 Hemoglobin 10.3 gm/dL Low 11.6-15.8 Lymph # 0.44 K/uL Low 1-4 Lymph % 2.9 % Low 20-42 Mean Cell Volume 94.1 fl 80.9-99 Mean Corpuscular HGB 31.8 pg 25.9-32.7 Mean Corpuscular HGB Conc 33.8 g/dL 30.8-34.3 Mean Platelet Volume 11.0 fL 8.9-12.4 [place] # 0.61 K/uL 0.3-0.9 [place] % 4.0 % Low 4.3-13.2 Neut# 14.15 K/uL High 1.8-7 Neut% 93.1 % High 40.4-72.8 Platelet Count 203 K/uL 150-400 Red Blood Count 3.24 M/uL Low 3.9-5.4 Red Cell Distri Width %CV 14.4 % 11.7-14.4 Red Cell Distri Width SD 47.2 fl High 3-47 White Blood Count 15.2 K/uL High 3.1-10.7 Laboratory test finding 02/24/2017 N2N/CCD Import Magnesium 2.2 mg/dL 1.8-2.4 Phosphorous 2.9 mg/dL 2.5-4 CBC 02/24/2017 N2N/CCD Import Hematocrit 35.2 % Low 36-46.1 Hemoglobin 11.9 gm/dL 11.6-15.8 Mean Cell Volume 95.4 fl 80.9-99 Mean Corpuscular HGB 32.2 pg 25.9-32.7 Mean Corpuscular HGB Conc 33.8 g/dL 30.8-34.3 Mean Platelet Volume 10.7 fL 8.9-12.4 Platelet Count 246 K/uL 150-400 Red Blood Count 3.69 M/uL Low 3.9-5.4 Red Cell Distri Width %CV 14.7 % High 11.7-14.4 White Blood Count 15.9 K/uL High 3.1-10.7 Comprehensive Metabolic Panel 02/24/2017 N2N/CCD Import Alb/Glob 0.9 ratio Albumin 2.9 g/dL Low 3.4-5 Alkaline Phosphatase 76 U/L 45-117 Anion Gap 8 mEq/L 8-16 BUN 19 mg/dL High 7-18 BUN/Creat 17.2 ratio Bilirubin,Total 0.9 mg/dL 0.2-1 Calcium 8.3 mg/dL Low 8.5-10.1 Carbon Dioxide 27 mmol/L 21-32 Chloride 103 mmol/L 98-107 Creatinine 1.1 mg/dL 0.6-1.3 Globulin 3.4 g/dL 1.9-4.3 Glom Filtration Rate, Estimate 50 mL/min Glucose 180 mg/dL High 74-106 If >60 mL/min 45 Potassium 3.5 mmol/L 3.5-5.1 SGPT/Alt 36 U/L 12-78 Sgot/Ast 50 U/L High 15-37 Sodium 138 mmol/L 136-145 Total Protein 6.3 g/dL Low 6.4-8.2 Laboratory test finding 01/28/2017 N2N/CCD Import Ferritin 28 ng/mL 8- 252 46 CBS W/Automated Diff 01/28/2017 N2N/CCD Import Bas% 0.2 % 0-1.1 Baso # 0.02 K/uL 0-0.1 Eo% 1.1 % 0-6.6 Eos # 0.11 K/uL 0-0.5 Hematocrit 39.8 % 36-46.1 Hemoglobin 13.2 gm/dL 11.6-15.8 Lymph # 2.52 K/uL 1-4 Lymph % 24.7 % 20-42 Mean Cell Volume 95.0 fl 80.9-99 Mean Corpuscular HGB 31.5 pg 25.9-32.7 Mean Corpuscular HGB Conc 33.2 g/dL 30.8-34.3 Mean Platelet Volume 11.4 fL 8.9-12.4 [place] # 0.64 K/uL 0.3-0.9 [place] % 6.3 % 4.3-13.2 Neut# 6.93 K/uL 1.8-7 Neut% 67.7 % 40.4-72.8 Platelet Count 245 K/uL 150-400 Red Blood Count 4.19 M/uL 3.9-5.4 Red Cell Distri Width %CV 15.2 % High 11.7-14.4 Red Cell Distri Width SD 52.0 fl High 3-47 White Blood Count 10.2 K/uL 3.1-10.7 Comprehensive Metabolic Panel 01/28/2017 N2N/CCD Import Alb/Glob 0.9 ratio Albumin 3.6 g/dL 3.4-5 Alkaline Phosphatase 83 U/L 45-117 Anion Gap 8 mEq/L 8-16 BUN 15 mg/dL 7-18 BUN/Creat 15.0 ratio Bilirubin,Total 0.8 mg/dL 0.2-1 Calcium 9.7 mg/dL 8.5-10.1 Carbon Dioxide 28 mmol/L 21-32 Chloride 106 mmol/L 98-107 Creatinine 1.0 mg/dL 0.6-1.3 Globulin 4.1 g/dL 1.9-4.3 Glom Filtration Rate, Estimate 56 mL/min Glucose 102 mg/dL 74-106 If >60 mL/min 47 Potassium 4.4 mmol/L 3.5-5.1 SGPT/Alt 18 U/L 12-78 Sgot/Ast 24 U/L 15-37 Sodium 142 mmol/L 136-145 Total Protein 7.7 g/dL 6.4-8.2 Iron-Tibc-%Sat 01/28/2017 N2N/CCD Import Serum Iron 81 g/dL 50-170 Total Iron Binding Capacity 403 g/dL 250-450 Transferrin %Saturation 20 % 12-57 Imaging finding 10/22/2016 N2N/CCD Import CT of abdomen and <pending> pelvis Basic Metabolic Panel 10/16/2016 N2N/CCD Import Anion Gap 7 mmol/L 2-11 BUN/Creatinine Ratio 16.3 1 8-20 Blood Urea Nitrogen 21 mg/dL 6-24 Calcium 9.9 mg/dL 8.6-10.3 Chloride 104 mmol/L 101-111 Co2 Carbon Dioxide 28 mmol/L 22-32 Creatinine 1.29 mg/dL High 0.51-0.95 Egfr 50.6 1 48 Egfr Non- 39.4 1 Glucose 98 mg/dL 70-100 Potassium 4.4 mmol/L 3.5-5 Sodium 139 mmol/L 133-145 CBC Auto Diff 10/16/2016 N2N/CCD Import Abs Basophils 0.1 10^3/uL 0-0.2 Abs Eosinophils 0.2 10^3/uL 0-0.6 Abs Lymphocytes 3.5 10^3/uL 1-4.8 Abs Monocytes 0.9 10^3/uL High 0-0.8 Abs Neutrophils 7.6 10^3/uL 1.5-7.7 Abs Nucleated RBC 0.02 10^3/uL Basophil % 0.6 % 0-2 Eosinophil % 1.4 % 0-6 Granulocyte % 62.3 % 38-83 Hematocrit 40 % 35-47 Hemoglobin 12.9 g/dL 12-16 Lymphocyte % 28.5 % 25-47 Mean Corpuscular HGB Conc 33 g/dL 31-36 Mean Corpuscular Hemoglobin 30 pg 27-31 Mean Corpuscular Volume 93 fL 80-97 Mean Platelet Volume 9 um3 7.4-10.4 Monocyte % 7.2 % 1-9 Nucleated Red Blood Cells % 0.2 1 Platelet Count 214 10^3/uL 150-450 Red Blood Count 4.25 10^6/uL 4-5.4 Red Cell Distribution Width 15 % 10.5-15 White Blood Count 12.2 10^3/uL High 3.5-10.8 Liver Function Panel 10/16/2016 N2N/CCD Import Albumin 4.4 g/dL 3.2-5.2 Albumin/Globulin Ratio 1.6 1 1-3 Alkaline Phosphatase 67 U/L 34-104 Alt 9 U/L 7-52 Ast 17 U/L 13-39 Direct Bilirubin 0.10 mg/dL 0.03-0.18 Globulin 2.8 g/dL 2-4 Indirect Bilirubin 0.5 mg/dL 0.3-1 Total Bilirubin 0.60 mg/dL 0.2-1 Total Protein 7.2 g/dL 6.4-8.9 Laboratory test finding 07/28/2016 N2N/CCD Import CK 105 U/L 26-192 49 Troponin-I < 0.015 ng/mL 50 CBS W/Automated Diff 07/28/2016 N2N/CCD Import Bas% 0.3 % 0-1.1 Baso # 0.02 K/uL 0-0.1 Eo% 2.0 % 0-6.6 Eos # 0.14 K/uL 0-0.5 Hematocrit 41.4 % 36-46.1 Hemoglobin 13.4 gm/dL 11.6-15.8 Lymph # 1.86 K/uL 1.8-7 Lymph % 26.0 % 17-46.1 Mean Cell Volume 93.9 fl 80.9-99 Mean Corpuscular HGB 30.4 pg 25.9-32.7 Mean Corpuscular HGB Conc 32.4 g/dL 30.8-34.3 Mean Platelet Volume 10.6 fL 8.9-12.4 [place] # 0.68 K/uL 0.3-0.9 [place] % 9.5 % 4.3-13.2 Neut# 4.46 K/uL 1.8-7 Neut% 62.2 % 40.4-72.8 Platelet Count 226 K/uL 155-360 Red Blood Count 4.41 M/uL 3.9-5.4 Red Cell Distri Width %CV 15.3 % High 11.7-14.4 Red Cell Distri Width SD 51.6 fl High 3-47 White Blood Count 7.2 K/uL 3.1-10.7 Comprehensive Metabolic Panel 07/28/2016 N2N/CCD Import Alb/Glob 0.8 ratio Albumin 3.7 g/dL 3.4-5 Alkaline Phosphatase 93 U/L 45-117 Anion Gap 9 mEq/L 8-16 BUN 18 mg/dL 7-18 BUN/Creat 16.3 ratio Bilirubin,Total 0.7 mg/dL 0.2-1 Calcium 9.3 mg/dL 8.5-10.1 Carbon Dioxide 25 mmol/L 21-32 Chloride 107 mmol/L 98-107 Creatinine 1.1 mg/dL 0.6-1.3 Globulin 4.6 g/dL High 1.9-4.3 Glom Filtration Rate, Estimate 50 mL/min Glucose 108 mg/dL High 74-106 If >60 mL/min 51 Potassium 4.0 mmol/L 3.5-5.1 SGPT/Alt 21 U/L 12-78 Sgot/Ast 23 U/L 15-37 Sodium 141 mmol/L 136-145 Total Protein 8.3 g/dL High 6.4-8.2 Basic Metabolic Panel 11/23/2015 N2N/CCD Import Anion Gap 9 mEq/L 8-16 BUN 22 mg/dL High 7-18 BUN/Creat 22.0 ratio Calcium 9.2 mg/dL 8.5-10.1 Carbon Dioxide 26 mmol/L 21-32 Chloride 106 mmol/L 98-107 Creatinine 1.0 mg/dL 0.6-1.3 Glom Filtration Rate, Estimate 56 mL/min Glucose 108 mg/dL High 74-106 If >60 mL/min 52 Potassium 4.6 mmol/L 3.5-5.1 Sodium 141 mmol/L 136-145 CBC 11/23/2015 N2N/CCD Import Hematocrit 37.3 % 36-46.1 Hemoglobin 12.1 gm/dL 11.6-15.8 Mean Cell Volume 96.6 fl 80.9-99 Mean Corpuscular HGB 31.3 pg 25.9-32.7 Mean Corpuscular HGB Conc 32.4 g/dL 30.8-34.3 Mean Platelet Volume 10.4 fL 8.9-12.4 Platelet Count 261 K/uL 155-360 Red Blood Count 3.86 M/uL Low 3.9-5.4 Red Cell Distri Width %CV 16.0 % High 11.7-14.4 White Blood Count 10.2 K/uL 3.1-10.7 Laboratory test 11/22/2015 N2N/CCD Import Urine Culture See Note 53 finding Laboratory test 10/15/2015 N2N/CCD Import Urine Culture See Note 54 finding Laboratory test 09/25/2015 N2N/CCD Import Urine Culture See Note 55 finding Laboratory test 09/11/2015 N2N/CCD Import Acromion/Acromio- See Note 56 finding Clavicular JT Laboratory test 08/13/2015 N2N/CCD Import CK 72 U/L 26-192 finding D-Dimer, Quantitative 1.01 ug/mL High 57 Troponin-I < 0.015 ng/mL 58 CBC W/Automated Diff 08/13/2015 N2N/CCD Import Bas% 0.2 % 0-1.1 Baso # 0.02 K/uL 0-0.1 Eo% 1.0 % 0-6.6 Eos # 0.09 K/uL 0-0.5 Hematocrit 37.8 % 36-46.1 Hemoglobin 12.6 gm/dL 11.6-15.8 Lymph # 2.49 K/uL 1.8-7 Lymph % 27.3 % 17-46.1 Mean Cell Volume 95.0 fl 80.9-99 Mean Corpuscular HGB 31.7 pg 25.9-32.7 Mean Corpuscular HGB Conc 33.3 g/dL 30.8-34.3 Mean Platelet Volume 10.6 fL 8.9-12.4 [place] # 0.62 K/uL 0.3-0.9 [place] % 6.8 % 4.3-13.2 Neut# 5.91 K/uL 1.8-7 Neut% 64.7 % 40.4-72.8 Platelet Count 230 K/uL 155-360 Red Blood Count 3.98 M/uL 3.9-5.4 Red Cell Distri Width %CV 15.9 % High 11.7-14.4 Red Cell Distri Width SD 53.3 fl High 3-47 White Blood Count 9.1 K/uL 3.1-10.7 Comprehensive Metabolic Panel 08/13/2015 N2N/CCD Import Alb/Glob 1.0 ratio Albumin 3.7 g/dL 3.4-5 Alkaline Phosphatase 73 U/L 45-117 Anion Gap 9 mEq/L 8-16 BUN 22 mg/dL High 7-18 BUN/Creat 24.4 ratio Bilirubin,Total 0.5 mg/dL 0.2-1 Calcium 9.0 mg/dL 8.5-10.1 Carbon Dioxide 24 mmol/L 21-32 Chloride 106 mmol/L 98-107 Creatinine 0.9 mg/dL 0.6-1.3 Globulin 3.7 g/dL 1.9-4.3 Glom Filtration Rate, Estimate >60 mL/min Glucose 125 mg/dL High 74-106 If >60 mL/min 59 Potassium 4.4 mmol/L 3.5-5.1 SGPT/Alt 19 U/L 12-78 Sgot/Ast 17 U/L 15-37 Sodium 139 mmol/L 136-145 Total Protein 7.4 g/dL 6.4-8.2 Imaging finding 07/11/2015 N2N/CCD Import MRI of left <pending> shoulder CBC No Diff 05/07/2015 [facility] White Blood Count 9.9 10^3/uL N 4.8-10.8 [address] [place] [address] [phone] Red Blood Count 3.80 10^6/uL Low 4.0-5.4 Hemoglobin 11.9 g/dL Low 12.0-16.0 Hematocrit 36 % N 35-47 Mean Corpuscular Volume 96 fL N 80-97 Mean Corpuscular Hemoglobin 31 pg N 27-31 Mean Corpuscular HGB Conc 33 g/dL N 31-36 Red Cell Distribution Width 15 % N 10.5-15 Platelet Count 248 10^3/uL N 150-450 Mean Platelet Volume 9 um3 N 7.4-10.4 Basic Metabolic Panel 05/07/2015 [facility] Sodium 136 mmol/L N 133-145 [address] [place] [address] [phone] Potassium 4.5 mmol/L N 3.5-5.0 Chloride 103 mmol/L N 101-111 Co2 Carbon Dioxide 25 mmol/L N 22-32 Anion Gap 8 mmol/L N 2-11 Glucose 86 mg/dL N 70-100 Blood Urea Nitrogen 25 mg/dL High 6-24 Creatinine 0.93 mg/dL N 0.51-0.95 BUN/Creatinine Ratio 26.9 High 8-20 Calcium 9.0 mg/dL N 8.6-10.3 Egfr Non- 57.6 N >60 Egfr 74.0 N >60 61 Type & Screen 05/07/2015 [facility] Patient Blood Type B Positive N [address] [place] [address] [phone] Antibody Screen NEGATIVE N Imaging finding 11/09/2014 N2N/CCD Import left shoulder <pending> xray Laboratory test 11/09/2014 N2N/CCD Import TSH Reflex FT4 0.81 uIU/mL 0.36-3.7 62 finding and/or FT3 4 Laboratory test 10/31/2014 N2N/CCD Import Uric Acid 4.1 mg/dL 2.6-6 finding Basic Metabolic 10/31/2014 N2N/CCD Import Anion Gap 8 mEq/L 8-16 Panel BUN 21 mg/dL High 7-18 BUN/Creat 21.0 ratio Calcium 9.4 mg/dL 8.5-10.1 Carbon Dioxide 27 mmol/L 21-32 Chloride 105 mmol/L 98-107 Creatinine 1.0 mg/dL 0.6-1.3 Glom Filtration Rate, Estimate 56 mL/min Glucose 89 mg/dL 74-106 If >60 mL/min 63 Potassium 4.2 mmol/L 3.5-5.1 Sodium 140 mmol/L 136-145 LDL Cholesterol Profile 10/31/2014 N2N/CCD Import Cholesterol 146 mg/dL 64 HDL Cholesterol 47 mg/dL 65 LDL-Cholesterol 70 mg/dL 66 Triglycerides 147 mg/dL 67 Liver Function Tests 10/31/2014 N2N/CCD Import Alb/Glob 1.1 ratio Albumin 3.8 g/dL 3.4-5 Alkaline Phosphatase 78 U/L 45-117 Bilirubin,Direct 0.2 mg/dL 0-0.2 Bilirubin,Indirect 0.4 mg/dL 0-0.9 Bilirubin,Total 0.6 mg/dL 0.2-1 Globulin 3.5 g/dL 1.9-4.3 SGPT/Alt 16 U/L 12-78 Sgot/Ast 16 U/L 15-37 Total Protein 7.3 g/dL 6.4-8.2 Basic Metabolic Panel 08/09/2013 N2N/CCD Import Anion Gap 14 mEq/L 8-16 BUN 22 mg/dL 5-23 BUN/Creat 22.0 ratio Calcium 10.0 mg/dL 8.5-10.1 Carbon Dioxide 24 mEq/L 18-29 Chloride 106 mmol/L 98-107 Creatinine 1.0 mg/dL 0.5-1.4 Glom Filtration Rate, Estimate 57 mL/min Glucose 97 mg/dL 76-115 If >60 mL/min 68 Potassium 4.3 mmol/L 3.5-5.1 Sodium 140 mmol/L 136-145 CBS W/Automated Diff 08/09/2013 N2N/CCD Import Bas% 0.1 % 0-1.1 Baso # 0.01 K/uL 0-0.1 Eo% 1.1 % 0-6.6 Eos # 0.08 K/uL 0-0.5 Hematocrit 39.1 % 36-46.1 Hemoglobin 13.1 gm/dL 11.6-15.8 Lymph # 1.83 K/uL 0.8-3.4 Lymph % 24.7 % 17-46.1 Mean Cell Volume 96.1 fl 80.9-99 Mean Corpuscular HGB 32.2 pg 25.9-32.7 Mean Corpuscular HGB Conc 33.5 g/dL 30.8-34.3 Mean Platelet Volume 11.6 fL 8.9-12.4 [place] # 0.58 K/uL 0.3-0.9 [place] % 7.8 % 4.3-13.2 Neut# 4.92 K/uL 1-7 Neut% 66.3 % 40.4-72.8 Platelet Count 230 K/uL 155-360 Red Blood Count 4.07 M/uL 3.9-5.4 Red Cell Distri Width %CV 14.5 % High 11.7-14.4 Red Cell Distri Width SD 49.1 fl High 3-47 White Blood Count 7.4 K/uL 3.1-10.7 LDL Cholesterol Profile 08/09/2013 N2N/CCD Import Cholesterol 155 mg/dL 120-200 HDL Cholesterol 53 mg/dL 29-83 LDL-Cholesterol 83 mg/dL 62-185 Triglycerides 97 mg/dL 16-231 Liver Function Tests 08/09/2013 N2N/CCD Import Alb/Glob 1.2 ratio Albumin 4.2 g/dL 3.5-5 Alkaline Phosphatase 90 U/L 50-136 Bilirubin,Direct 0.1 mg/dL 0.1-0.4 Bilirubin,Indirect 0.6 mg/dL 0-0.9 Bilirubin,Total 0.7 mg/dL 0.2-1.2 Globulin 3.6 g/dL 1.9-4.3 SGPT/Alt 19 U/L Low 30-65 Sgot/Ast 22 U/L 16-40 Total Protein 7.8 g/dL 6.3-8 Laboratory test 07/05/2013 N2N/CCD Import Gastric See Note 69 finding Biopsy/Polyp Imaging finding 04/27/2013 N2N/CCD Import CT scan of abdomen <pending> and pelvis Laboratory test 04/27/2013 N2N/CCD Import Urine Culture See Note 70 finding Laboratory test 04/27/2013 N2N/CCD Import ThinPrep Pap: Vulva See Note 71 finding + Vagina Laboratory test 04/13/2013 N2N/CCD Import Urine Culture See Note 72 finding Laboratory test 02/08/2013 N2N/CCD Import Uric Acid 5.2 mg/dL 2.1-7.4 finding Basic Metabolic 02/08/2013 N2N/CCD Import Anion Gap 15 mEq/L 8-16 Panel BUN 15 mg/dL 5-23 BUN/Creat 13.6 ratio Calcium 9.8 mg/dL 8.5-10.1 Carbon Dioxide 26 mEq/L 18-29 Chloride 109 mmol/L High 98-107 Creatinine 1.1 mg/dL 0.5-1.4 Glom Filtration Rate, Estimate 51 mL/min Glucose 118 mg/dL High 76-115 If >60 mL/min 73 Potassium 4.8 mmol/L 3.5-5.1 Sodium 145 mmol/L 136-145 CBS W/Automated Diff 02/08/2013 N2N/CCD Import Bas% 0.3 % 0-1.1 Baso # 0.02 K/uL 0-0.1 Eo% 1.9 % 0-6.6 Eos # 0.15 K/uL 0-0.5 Hematocrit 42.3 % 36-46.1 Hemoglobin 14.1 gm/dL 11.6-15.8 Lymph # 2.13 K/uL 0.8-3.4 Lymph % 27.3 % 17-46.1 Mean Cell Volume 95.9 fl 80.9-99 Mean Corpuscular HGB 32.0 pg 25.9-32.7 Mean Corpuscular HGB Conc 33.3 g/dL 30.8-34.3 Mean Platelet Volume 11.6 fL 8.9-12.4 [place] # 0.50 K/uL 0.3-0.9 [place] % 6.4 % 4.3-13.2 Neut# 4.99 K/uL 1-7 Neut% 64.1 % 40.4-72.8 Platelet Count 261 K/uL 155-360 Red Blood Count 4.41 M/uL 3.9-5.4 Red Cell Distri Width %CV 14.7 % High 11.7-14.4 Red Cell Distri Width SD 49.9 fl High 3-47 White Blood Count 7.8 K/uL 3.1-10.7 LDL Cholesterol Profile 02/08/2013 N2N/CCD Import Cholesterol 193 mg/dL 120-200 HDL Cholesterol 57 mg/dL 29-83 LDL-Cholesterol 100 mg/dL 62-185 Triglycerides 181 mg/dL 16-231 Liver Function Tests 02/08/2013 N2N/CCD Import Alb/Glob 0.9 ratio Albumin 3.7 g/dL 3.5-5 Alkaline Phosphatase 96 U/L 50-136 Bilirubin,Direct 0.1 mg/dL 0.1-0.4 Bilirubin,Indirect 0.5 mg/dL 0-0.9 Bilirubin,Total 0.6 mg/dL 0.2-1.2 Globulin 4.3 g/dL 1.9-4.3 SGPT/Alt 22 U/L Low 30-65 Sgot/Ast 15 U/L Low 16-40 Total Protein 8.0 g/dL 6.3-8 Laboratory test 09/27/2012 N2N/CCD Import TSH Reflex FT4 1.52 uIU/mL 0.49-4.67 74 finding and/or FT3 Uric Acid 4.9 mg/dL 2.1-7.4 Basic Metabolic Panel 09/27/2012 N2N/CCD Import Anion Gap 12 mEq/L 8-16 BUN 18 mg/dL 5-23 BUN/Creat 18.0 ratio Calcium 9.2 mg/dL 8.5-10.1 Carbon Dioxide 26 mEq/L 18-29 Chloride 110 mmol/L High 98-107 Creatinine 1.0 mg/dL 0.5-1.4 Glom Filtration Rate, Estimate 57 mL/min Glucose 107 mg/dL 76-115 If >60 mL/min 75 Potassium 4.3 mmol/L 3.5-5.1 Sodium 144 mmol/L 136-145 CBS W/Automated Diff 09/27/2012 N2N/CCD Import Bas% 0.1 % 0-1.1 Baso # 0.01 K/uL 0-0.1 Eo% 1.9 % 0-6.6 Eos # 0.14 K/uL 0-0.5 Hematocrit 38.9 % 36-46.1 Hemoglobin 13.1 gm/dL 11.6-15.8 Lymph # 1.94 K/uL 0.8-3.4 Lymph % 25.7 % 17-46.1 Mean Cell Volume 94.6 fl 80.9-99 Mean Corpuscular HGB 31.9 pg 25.9-32.7 Mean Corpuscular HGB Conc 33.7 g/dL 30.8-34.3 Mean Platelet Volume 11.4 fL 8.9-12.4 [place] # 0.51 K/uL 0.3-0.9 [place] % 6.8 % 4.3-13.2 Neut# 4.95 K/uL 1-7 Neut% 65.5 % 40.4-72.8 Platelet Count 233 K/uL 155-360 Red Blood Count 4.11 M/uL 3.9-5.4 Red Cell Distri Width %CV 14.6 % High 11.7-14.4 Red Cell Distri Width SD 48.7 fl High 3-47 White Blood Count 7.6 K/uL 3.1-10.7 LDL Cholesterol Profile 09/27/2012 N2N/[facility] Cholesterol 154 mg/dL 120-200 HDL Cholesterol 48 mg/dL 29-83 LDL-Cholesterol 77 mg/dL 62-185 Triglycerides 146 mg/dL 16-231 Liver Function Tests 09/27/2012 N2N/[facility] Alb/Glob 1.0 ratio Albumin 3.6 g/dL 3.5-5 Alkaline Phosphatase 83 U/L 50-136 Bilirubin,Direct 0.1 mg/dL 0.1-0.4 Bilirubin,Indirect 0.4 mg/dL 0-0.9 Bilirubin,Total 0.5 mg/dL 0.2-1.2 Globulin 3.7 g/dL 1.9-4.3 SGPT/Alt 15 U/L Low 30-65 Sgot/Ast 14 U/L Low 16-40 Total Protein 7.3 g/dL 6.3-8 Laboratory test 04/18/2012 N2N/[facility] Troponin-I < 0.02 0-0.5 76 finding ng/mL Laboratory test 04/18/2012 N2N/[facility] Glycohemoglobin (A1c) 6.5 % High 4.8-6 77 finding eAG 140 mg/dL Basic Metabolic Panel 04/18/2012 N2N/CCD Import Anion Gap 15 mEq/L 8-16 BUN 22 mg/dL 5-23 BUN/Creat 18.3 ratio Calcium 8.6 mg/dL 8.5-10.1 Carbon Dioxide 24 mEq/L 18-29 Chloride 104 mmol/L 98-107 Creatinine 1.2 mg/dL 0.5-1.4 Glom Filtration Rate, Estimate 46 mL/min Glucose 105 mg/dL 76-115 If 56 mL/min 78 Potassium 4.1 mmol/L 3.5-5.1 Sodium 139 mmol/L 136-145 CBC W/Automated Diff 04/18/2012 N2N/[facility] Import Bas% 0.1 % 0-1.1 Baso # 0.01 K/uL 0-0.1 Eo% 3.4 % 0-6.6 Eos # 0.31 K/uL 0-0.5 Hematocrit 31.2 % Low 36-46.1 Hemoglobin 10.0 gm/dL Low 11.6-15.8 Lymph # 2.63 K/uL 0.8-3.4 Lymph % 29.1 % 17-46.1 Mean Cell Volume 96.9 fl 80.9-99 Mean Corpuscular HGB 31.1 pg 25.9-32.7 Mean Corpuscular HGB Conc 32.1 g/dL 30.8-34.3 Mean Platelet Volume 10.7 fL 8.9-12.4 [place] # 0.93 K/uL High 0.3-0.9 [place] % 10.3 % 4.3-13.2 Neut# 5.15 K/uL 1-7 Neut% 57.1 % 40.4-72.8 Platelet Count 206 K/uL 155-360 Red Blood Count 3.22 M/uL Low 3.9-5.4 Red Cell Distri Width %CV 15.2 % High 11.7-14.4 Red Cell Distri Width SD 52.8 fl High 3-47 White Blood Count 9.0 K/uL 3.1-10.7 LDL Cholesterol Profile 04/18/2012 N2N/[facility] Import Cholesterol 113 mg/dL Low 120-200 HDL Cholesterol 40 mg/dL 29-83 LDL-Cholesterol 44 mg/dL Low 62-185 Triglycerides 145 mg/dL 16-231 Blood Culture 04/17/2012 N2N/[facility] Import Blood Culture Aerobic See Note 79 Blood Culture Anaerobic See Note 80 Blood Culture 04/17/2012 N2N/[facility] Import Blood Culture Aerobic See Note 81 Blood Culture Anaerobic See Note 82 Surgical 03/02/2012 [facility] Surgical [address] Pathology <SEE NOTE> [place] [address] [phone] Basic 02/20/2012 [facility] Sodium 140 mmol/L 135- Metabolic [address] [place] [address] [phone] Potassium 5.1 mmol/L High 3.5-5.0 Chloride 107 mmol/L 101-111 Co2 (Carbon Dioxide) 28.0 mmol/L 22-32 Anion Gap 5.0 mmol/L 2-11 84 Glucose 98 mg/dL 70-100 BUN 16 mg/dL 6-24 Creatinine 1.1 mg/dL 0.50-1.40 One Over Creatinine 0.90 BUN/Creatinine Ratio 14.5 8-20 Calcium 9.4 mg/dL 8.1-9.9 eGFR Non- 47.8 > 60 eGFR 61.5 > 60 85 CBC No Diff 02/20/2012 [facility] White Blood Count 9.5 CUMM 4.8-10.8 [address] [place] [address] [phone] Red Cell Count 3.70 CUMM Low 4.2-5.4 Hemoglobin 12.2 g/dL 12.0-16.0 Hematocrit 35 % 35-47 Mean Corpuscular Volume 96 um3 79-97 Mean Corpuscular Hemoglob 33 pg High 27-31 Mean Corpuscular HGB Cone 34 g/dL 32-36 Redcell Distribution WDTH 14 % 10.5-15 Platelet Count 261 CUMM 150-450 Mean Platelet Volume 8.9 um3 7.4-10.4 Protime 02/20/2012 [facility] Inr 0.92 0.88-1.13 86 [address] [place] [address] [phone] Protime 10.9 SEC 10.3-13.5 87 Laboratory test 02/20/2012 [facility] PTT (Aptt) 27.4 SEC 25.1-38.5 finding [facility] [place] [address] [phone] Type And Screen 02/20/2012 [facility] Patient B POSITIVE (Pre-Adm) [address] [facility] [place] [address] [phone] Antibody Screen NEGATIVE Specimen Discard Date 03/05/12 88 CBC Auto 02/10/2012 [facility] White Blood 14.1 CUMM High 4.8- 10.8 [address] [place] [address] [phone] Red Cell Count 3.60 CUMM Low 4.2-5.4 Hemoglobin 11.6 g/dL Low 12.0-16.0 Hematocrit 35 % 35-47 Mean Corpuscular Volume 97 um3 79-97 Mean Corpuscular Hemoglob 32 pg High 27-31 Mean Corpuscular HGB Cone 33 g/dL 32-36 Redcell Distribution WDTH 15 % 10.5-15 Platelet Count 223 CUMM 150-450 Mean Platelet Volume 10.4 um3 7.4-10.4 Gran % 68.3 % 38-83 Lymph % 20.6 % 20-45 Mononuclear % 10.2 % High 1-9 Eosinophil % 0.4 % 0-6 Basophil % 0.5 % 0-2 Abs Lymphs 2.9 1.0-4.8 Abs Mononuclear 1.4 High 0-0.8 Absolute Neutrophil Count 9.6 High 1.5-7.7 Abs Eosinophils 0.1 0-0.6 Abs Basophils 0.1 0-0.2 Protime 02/10/2012 [facility] Inr 0.98 0.88-1.13 90 [address] [place] [address] [phone] Protime 11.7 SEC 10.3-13.5 91 Basic Metabolic Panel 02/10/2012 [facility] Sodium 139 mmol/L 135-145 [address] [place] [address] [phone] Potassium 4.4 mmol/L 3.5-5.0 Chloride 106 mmol/L 101-111 Co2 (Carbon Dioxide) 22.0 mmol/L 22-32 Anion Gap 11.0 mmol/L 2-11 92 Glucose 112 mg/dL High 70-100 BUN 22 mg/dL 6-24 Creatinine 1.1 mg/dL 0.50-1.40 One Over Creatinine 0.90 BUN/Creatinine Ratio 20.0 8-20 Calcium 9.4 mg/dL 8.1-9.9 eGFR Non- 47.8 > 60 eGFR 61.5 > 60 93 Type And Screen 02/10/2012 [facility] Patient Blood B POSITIVE (Pre-Adm) [address] [place] [address] [phone] Antibody Screen NEGATIVE Specimen Discard Date 02/24/12 94 Laboratory test 02/10/2012 [facility] PTT (Aptt) 28.3 SEC 25.1-38.[address] [place] [id number] [phone] Liver Function 08/05/2011 N2N/CCD Import Alb/Glob 1.2 ratio Tests Albumin 3.9 g/dL 3.5-5 Alkaline Phosphatase 71 U/L 50-136 Bilirubin,Direct 0.2 mg/dL 0.1-0.4 Bilirubin,Indirect 0.6 mg/dL 0-0.9 Bilirubin,Total 0.8 mg/dL 0.2-1.2 Globulin 3.2 g/dL 1.9-4.3 SGPT/Alt 29 U/L Low 30-65 Sgot/Ast 14 U/L Low 16-40 Total Protein 7.1 g/dL 6.3-8 LDL Cholesterol Profile 08/05/2011 N2N/CCD Import Cholesterol 151 mg/dL 120-200 HDL Cholesterol 48 mg/dL 29-83 LDL-Cholesterol 61 mg/dL Low 62-185 Triglycerides 210 mg/dL 16-231 CBC W/Automated Diff 08/05/2011 N2N/CCD Import Bas% 0.2 % 0-1.1 Baso # 0.02 K/uL 0-0.1 Eo% 2.3 % 0-6.6 Eos # 0.21 K/uL 0-0.5 Hematocrit 40.6 % 36-46.1 Hemoglobin 13.5 gm/dL 11.6-15.8 Lymph # 2.04 K/uL 0.8-3.4 Lymph % 22.6 % 17-46.1 Mean Cell Volume 95.3 fl 80.9-99 Mean Corpuscular HGB 31.7 pg 25.9-32.7 Mean Corpuscular HGB Conc 33.3 g/dL 30.8-34.3 Mean Platelet Volume 11.0 fL 8.9-12.4 [place] # 0.63 K/uL 0.3-0.9 [place] % 7.0 % 4.3-13.2 Neut# 6.14 K/uL 1-7 Neut% 67.9 % 40.4-72.8 Platelet Count 237 K/uL 155-360 Red Blood Count 4.26 M/uL 3.9-5.4 Red Cell Distri Width %CV 14.2 % 11.7-14.4 Red Cell Distri Width SD 48.1 fl High 3-47 White Blood Count 9.0 K/uL 3.1-10.7 Basic Metabolic Panel 08/05/2011 N2N/CCD Import Anion Gap 13 mEq/L 8-16 BUN 23 mg/dL 5-23 BUN/Creat 19.1 ratio Calcium 9.2 mg/dL 8.5-10.1 Carbon Dioxide 28 mEq/L 18-29 Chloride 105 mmol/L 98-107 Creatinine 1.2 mg/dL 0.5-1.4 Glom Filtration Rate, Estimate 46 mL/min Glucose 125 mg/dL High 76-115 If 56 mL/min 95 Potassium 4.6 mmol/L 3.5-5.1 Sodium 141 mmol/L 136-145 Laboratory test finding 08/05/2011 N2N/CCD Import CK 58 U/L 26-190 Free T4 0.93 ng/dL 0.71-1.85 Glycohemoglobin (A1c) 6.6 % High 4.8-6 96 Thyroid Stim Hormone 2.30 uIU/mL 0.49-4.67 Uric Acid 5.0 mg/dL 2.1-7.4 eAG 143 mg/dL 1 [id number] 2 SEE RESULT BELOW Name: NEDA GLYNN : [address]: Jossie SHAH Acct: [id number] Unit: [id number] AGE: 88 Location: [facility] Re12/01/18 SEX: F Status: REG REF SPEC: [id number] JACE: 12/01/18-[address]: Jossie SHAH REQ: [id number] RECD: 12/01/18 STATUS: COMP _ SOURCE: URINE SPDESC: ORDERED: Urine Culture COMMENTS: [id number] Urine Source: Random Procedure Result Reported Site Urine Culture Final 12/02/18- 130 ML Few Enterobacteriacae; possible contamination. * ML - Main Lab . END OF REPORT DEPARTMENT OF PATHOLOGY, [address] [place] [address] Yair Echols M.D. Director [facility] # [id number] 3 Because ethnic data is not always readily [...] 15-29 5 Kidney failure <15 (or dialysis) 4 Desirable: <150 Borderline High: 150-199 High: 200-499 Very High: >500 5 Desirable: <200 Borderline High: 200-239 High: >239 6 Low: <40 Desirable: 40-60 High: >60 7 Desirable: <100 Near Optimal: 100-129 Borderline High: 130-159 High: 160-189 Very High: >189 8 Therapeutic target for the treatment of diabetes mellitus patients is <7% HBA1C, and in selective patients <6.0%. Please refer to [place] [employer] diabetic care guidelines for further information. 9 Reference Guidelines*: Desirable: ........... < 200 mg/dL Borderline High: ..... 200-239 mg/dL High: ................ >=240 mg/dL * The National Cholesterol Education Program (NCEP) 10 Reference Guidelines*: Low HDL: ..... < 40 mg/dL Normal: ..... 40-60 mg/dL Desirable: ... > 60 mg/dL *The National Cholesterol Education Program(NCEP) 11 Reference Guidelines*: Optimal:........... <100 mg/dL Near Optimal....... 100-129 mg/dL Borderline High.... 130-159 mg/dL High............... 160-189 mg/dL Very High.......... >=190 mg/dL * Source: National Cholesterol Education Program (NCEP) 12 Reference Guidelines*: Normal: ............. < 150 mg/dL Borderline High: .... 150-199 mg/dL High: ............... 200-499 mg/dL Very High: .......... > 500 mg/dL * Source: National Cholesterol Education Program (NCEP) 13 ADDITIONAL INFORMATION This test was developed and its performance characteristics determined by [facility] in a manner consistent with CLIA requirements. This test has not been cleared or approved by the U.S. Food and Drug Administration. Test Performed by: [facility] - [address] [address] 14 I10,M10.9 15 Instrument flagged sample for slide review. Less than 10% Bands seen, no other immature WBC's seen. RBC morphology essentially normal. Platelet estimate=NORMAL 16 Note: Persistent reduction for 3 months or more in an eGFR <60 mL/min/1.73 m2 defines CKD. Patients with eGFR values >/=60 mL/min/1.73 m2 may also have CKD if evidence of persistent proteinuria is present. The original MDRD equation for estimated GFR is not valid for patients less than 18 years of age. Additional information may be found at [email or web address]. 17 Reference Guidelines*: Desirable: ........... < 200 mg/dL Borderline High: ..... 200-239 mg/dL High: ................ >=240 mg/dL * The National Cholesterol Education Program (NCEP) 18 Reference Guidelines*: Low HDL: ..... < 40 mg/dL Normal: ..... 40-60 mg/dL Desirable: ... > 60 mg/dL *The National Cholesterol Education Program(NCEP) 19 Reference Guidelines*: Optimal:........... <100 mg/dL Near Optimal....... 100-129 mg/dL Borderline High.... 130-159 mg/dL High............... 160-189 mg/dL Very High.......... >=190 mg/dL * Source: National Cholesterol Education Program (NCEP) 20 Reference Guidelines*: Normal: ............. < 150 mg/dL Borderline High: .... 150-199 mg/dL High: ............... 200-499 mg/dL Very High: .......... > 500 mg/dL * Source: National Cholesterol Education Program ([facility]) 21 [id number] 22 SEE RESULT BELOW Name: NEDA GLYNN : [address]: Jossie SHAH Acct: [id number] Unit: [id number] AGE: 87 Location: [facility] Re11/10/17 SEX: F Status: REG REF SPEC: [id number] JACE: 11/10/17 [facility] DR: Jossie SHAH REQ: [id number] RECD: 11/10/17 STATUS: COMP _ SOURCE: URINE SPDESC: ORDERED: Urine Culture COMMENTS: [id number] QUERIES: Urine Source: Clean Catch Procedure Result Reported Site Urine Culture Final 11/12/17- 0859 ML No growth of clinically significant organisms * ML - Main Lab . END OF REPORT DEPARTMENT OF PATHOLOGY, [address] [place] [address] Yair Echols M.D. Director [facility] # [id number] 23 E61.1 24 Instrument flagged sample for slide review. Less than 10% Bands seen, no other immature WBC's seen. RBC morphology essentially normal. Platelet estimate=NORMAL 25 Note: Persistent reduction for 3 months or more in an eGFR <60 mL/min/1.73 m2 defines CKD. Patients with eGFR values >/=60 mL/min/1.73 m2 may also have CKD if evidence of persistent proteinuria is present. The original MDRD equation for estimated GFR is not valid for patients less than 18 years of age. Additional information may be found at [email or web address]. 26 C18.4 D64.9 E61.1 27 Non-smokers ..... 0.0-3.0 ng/mL Smokers ......... 0.0-5.0 ng/mL THIS ASSAY IS NOT INTENDED A CANCER SCREENING TEST The concentration of CEA in a given specimen, determined with assays from different manufacturers, can vary due to differences in assay methods and reagent specificity. Values obtained from different assay methods cannot be used interchangeably. Method: Siemens Alereon Sterling Chemiluminescent Immunoassay 28 Note: Persistent reduction for 3 months or more in an eGFR <60 mL/min/1.73 m2 defines CKD. Patients with eGFR values >/=60 mL/min/1.73 m2 may also have CKD if evidence of persistent proteinuria is present. The original MDRD equation for estimated GFR is not valid for patients less than 18 years of age. Additional information may be found at [email or web address]. 29 Therapeutic target for the treatment of diabetes mellitus patients is <7% HBA1C, and in selective patients <6.0%. Please refer to [place] [employer] Association diabetic care guidelines for further information. 30 C18.4 31 Non-smokers ..... 0.0-3.0 ng/mL Smokers ......... 0.0-5.0 ng/mL THIS ASSAY IS NOT INTENDED A CANCER SCREENING TEST The concentration of CEA in a given specimen, determined with assays from different manufacturers, can vary due to differences in assay methods and reagent specificity. Values obtained from different assay methods cannot be used interchangeably. Method: Siemens Alereon Sterling Chemiluminescent Immunoassay 32 Instrument flagged sample for slide review. Less than 10% Bands seen, no other immature WBC's seen. 0-1+ TOXIC GRANULATION RBC morphology essentially normal. Platelet estimate=NORMAL 33 Note: Persistent reduction for 3 months or more in an eGFR <60 mL/min/1.73 m2 defines CKD. Patients with eGFR values >/=60 mL/min/1.73 m2 may also have CKD if evidence of persistent proteinuria is present. The original MDRD equation for estimated GFR is not valid for patients less than 18 years of age. Additional information may be found at [email or web address]. 34 COLON ADENOCARCINOMA 35 Note: Persistent reduction for 3 months or more in an eGFR <60 mL/min/1.73 m2 defines CKD. Patients with eGFR values >/=60 mL/min/1.73 m2 may also have CKD if evidence of persistent proteinuria is present. The original MDRD equation for estimated GFR is not valid for patients less than 18 years of age. Additional information may be found at [email or web address]. 36 Note: Persistent reduction for 3 months or more in an eGFR <60 mL/min/1.73 m2 defines CKD. Patients with eGFR values >/=60 mL/min/1.73 m2 may also have CKD if evidence of persistent proteinuria is present. The original MDRD equation for estimated GFR is not valid for patients less than 18 years of age. Additional information may be found at [email or web address]. 37 Tests: crp Instructions: 38 NO GROWTH: FINAL REPORT 39 URINE, CLEAN CATCH 40 POSSIBLE UROGENITAL CONTAMINATION. 41 Elevated levels of HbA1c suggest the need for more aggressive treatment of glycemia. The [place] [employer] recommends that a primary goal of therapy should be a HbA1c of <7% and that physicians should re-evaluate the treatment regimen in patients with HbA1c values consistently >8%. 42 Note: Persistent reduction for 3 months or more in an eGFR <60 mL/min/1.73 m2 defines CKD. Patients with eGFR values >/=60 mL/min/1.73 m2 may also have CKD if evidence of persistent proteinuria is present. The original MDRD equation for estimated GFR is not valid for patients less than 18 years of age. Additional information may be found at [email or web address]. 43 Instrument flagged sample for slide review. Less than 10% Bands seen, no other immature WBC's seen. RBC morphology essentially normal. Platelet estimate=NORMAL 44 Note: Persistent reduction for 3 months or more in an eGFR <60 mL/min/1.73 m2 defines CKD. Patients with eGFR values >/=60 mL/min/1.73 m2 may also have CKD if evidence of persistent proteinuria is present. The original MDRD equation for estimated GFR is not valid for patients less than 18 years of age. Additional information may be found at [email or web address]. 45 Note: Persistent reduction for 3 months or more in an eGFR <60 mL/min/1.73 m2 defines CKD. Patients with eGFR values >/=60 mL/min/1.73 m2 may also have CKD if evidence of persistent proteinuria is present. The original MDRD equation for estimated GFR is not valid for patients less than 18 years of age. Additional information may be found at [email or web address]. 46 C18.4 47 Note: Persistent reduction for 3 months or more in an eGFR <60 mL/min/1.73 m2 defines CKD. Patients with eGFR values >/=60 mL/min/1.73 m2 may also have CKD if evidence of persistent proteinuria is present. The original MDRD equation for estimated GFR is not valid for patients less than 18 years of age. Additional information may be found at [email or web address]. 48 Because ethnic data is not always [...] 5 Kidney failure <15 (or dialysis) 49 CP, SENT BY CC 50 0.0 - 0.045 ng/mL: Normal 0.046 - 0.5 ng/mL: Suggestive 0.6 - 1.5 ng/mL: Consistent 51 Note: Persistent reduction for 3 months or more in an eGFR <60 mL/min/1.73 m2 defines CKD. Patients with eGFR values >/=60 mL/min/1.73 m2 may also have CKD if evidence of persistent proteinuria is present. The original MDRD equation for estimated GFR is not valid for patients less than 18 years of age. Additional information may be found at [email or web address]. 52 Note: Persistent reduction for 3 months or more in an eGFR <60 mL/min/1.73 m2 defines CKD. Patients with eGFR values >/=60 mL/min/1.73 m2 may also have CKD if evidence of persistent proteinuria is present. The original MDRD equation for estimated GFR is not valid for patients less than 18 years of age. Additional information may be found at [email or web address]. 53 Organism 1 ! MIXED URETHRAL ELOISA Quantity ! 10,000 - 50,000 CFU/mL 54 Organism 1 ! URETHRAL ELOISA Quantity ! 10,000 - 50,000 CFU/mL 55 Organism 1 ! ENTEROCOCCUS FAECALIS Quantity ! [...] 0.5 S PIPERACILLIN S VANCOMYCIN 1 S 56 OPERATION/PROCEDURE Left shoulder rotator cuff repair, acromioplasty [...] Signed Electronically signed Cassia HERBERT MD [id number] 57 <=0.49 ug/mL - Low likelihood of DIC, DVT or Pulmonary Embolism >0.49 ug/mL - Additional testing should be done to rule out DIC, DVT, or Pulmonary embolism as clinically indicated. ([facility] has established a 97.89% negative predictive value for thrombotic disease when a cutoff value of 0.5 ug/mL is used.) 58 0.0 - 0.045 ng/mL: Normal 0.046 - 0.5 ng/mL: Suggestive 0.6 - 1.5 ng/mL: Consistent 59 Note: Persistent reduction for 3 months or more in an eGFR <60 mL/min/1.73 m2 defines CKD. Patients with eGFR values >/=60 mL/min/1.73 m2 may also have CKD if evidence of persistent proteinuria is present. The original MDRD equation for estimated GFR is not valid for patients less than 18 years of age. Additional information may be found at [email or web address]. 60 AA 05/17 61 Because ethnic data is not always readily [...] 15-29 5 Kidney failure <15 (or dialysis) 62 QUERY: Reflex add FT3? Y QUERY: Reflex add FT4? Y 63 Note: Persistent reduction for 3 months or more in an eGFR <60 mL/min/1.73 m2 defines CKD. Patients with eGFR values >/=60 mL/min/1.73 m2 may also have CKD if evidence of persistent proteinuria is present. The original MDRD equation for estimated GFR is not valid for patients less than 18 years of age. Additional information may be found at [email or web address]. 64 Reference Guidelines*: Desirable: ........... < 200 mg/dL Borderline High: ..... 200-239 mg/dL High: ................ >=240 mg/dL * The National Cholesterol Education Program (NCEP) 65 Reference Guidelines*: Low HDL: ..... < 40 mg/dL Normal: ..... 40-60 mg/dL Desirable: ... > 60 mg/dL *The National Cholesterol Education Program(NCEP) 66 Reference Guidelines*: Optimal:........... <100 mg/dL Near Optimal....... 100-129 mg/dL Borderline High.... 130-159 mg/dL High............... 160-189 mg/dL Very High.......... >=190 mg/dL * Source: National Cholesterol Education Program (NCEP) 67 Reference Guidelines*: Normal: ............. < 150 mg/dL Borderline High: .... 150-199 mg/dL High: ............... 200-499 mg/dL Very High: .......... > 500 mg/dL * Source: National Cholesterol Education Program (NCEP) 68 Note: Persistent reduction for 3 months or more in an eGFR <60 mL/min/1.73 m2 defines CKD. Patients with eGFR values >/=60 mL/min/1.73 m2 may also have CKD if evidence of persistent proteinuria is present. The original MDRD equation for estimated GFR is not valid for patients less than 18 years of age. Additional information may be found at [email or web address]. 69 OPERATION/PROCEDURE Colonoscopy, gastroscopy DIAGNOSIS: PART 1: "DUODENUM, BIOPSY": SMALL BOWEL MUCOSA WITHOUT SIGNIFICANT PATHOLOGICAL ABNORMALITY. PART 2: "STOMACH, BIOPSY": FUNDIC GLAND POLYPS, BENIGN. NO HELICOBACTER SEEN WITH SPECIAL STAIN. ZACKARY/alicia Melendez: 07/07/2013 10:12:57 AM GROSS Part 1; "DUODENAL BIOPSY". The specimen [...] submitted in toto within a single cassette. ZACKARY/alicia MICROSCOPIC Part 1: Sections reveal villiform mucosa [...] CODE: I ISMAEL Villanueva MD 07/07/13 1454 70 COLONY COUNT ! 70,000-80,000 CFU/ml Organism 1 ! MIXED URETHRAL ELOISA 71 CYTOLOGY SCREENER - SIEVE REPAIRER @ 09/06 Screened by: Monik Jones [facility](ASCP) PAP: FINAL REPORT SPECIMEN ADEQUACY: SPECIMEN SATISFACTORY FOR INTERPRETATION <4m OF SAMPLE REMAINS IN VIAL:INSUFFICIENT FOR HPV TEST INTERPRETATION: ATYPICAL SQUAMOUS CELLS OF UNDETERMINED SIGNIFICANCE COMMENT: THINPREP PREPARED PAP SLIDE # Prepared in the Cytology laboratory from the ThinPrep sample is 1 ThinPrep smear. PAP ACCESSI QUESTIONNAIRE 08/05 PERTINENT CLINICAL HISTORY FOR PAP (SIEVE REPAIRER) CYTOLOGY (Check all that apply): ? N Post ? N Menopause? Y LMP date: 40 YRS AGO Last Pap: at [facility]? N Abnormal Pap? If Yes, date: [...] and carcinoma. ISMAEL Villanueva MD 05/03/13 1538 72 COLONY COUNT ! 20,000-30,000 CFU/ml Organism 1 ! MIXED URETHRAL ELOISA 73 Note: Persistent reduction for 3 months or more in an eGFR <60 mL/min/1.73 m2 defines CKD. Patients with eGFR values >/=60 mL/min/1.73 m2 may also have CKD if evidence of persistent proteinuria is present. The original MDRD equation for estimated GFR is not valid for patients less than 18 years of age. Additional information may be found at [email or web address]. 74 QUERY: Add FT3 if TSH abnormal? FT3 N QUERY: Add FT4 if TSH Abnormal? FT4 Y 75 Note: Persistent reduction for 3 months or more in an eGFR <60 mL/min/1.73 m2 defines CKD. Patients with eGFR values >/=60 mL/min/1.73 m2 may also have CKD if evidence of persistent proteinuria is present. The original MDRD equation for estimated GFR is not valid for patients less than 18 years of age. Additional information may be found at [email or web address]. 76 0 - 0.5 ng/mL: No evidence of myocardial injury 0.6 - 1.4 ng/mL: Mild elevation, suggesting possible myocardial injury > 1.4 ng/mL: Consistent with myocardial injury 77 A1c value between 5.7% and 6.4% is considered at increased risk for diabetes. A1c value greater than 6.5 % is considered essentially diagnostic for Type II diabetes. Current guidelines recommend a treatment goal of <7% for diabetic patients. This method will measure glycosylated hemoglobin variants, HbS, HbG, HbH, HbWayne, HbC, HbE, etc. Other hemoglobin- opathies may give incorrect results with this test. 78 Note: Persistent reduction for 3 months or more in an eGFR <60 mL/min/1.73 m2 defines CKD. Patients with eGFR values >/=60 mL/min/1.73 m2 may also have CKD if evidence of persistent proteinuria is present. The original MDRD equation for estimated GFR is not valid for patients less than 18 years of age. Additional information may be found at [email or web address]. 79 NO GROWTH: FINAL REPORT 80 NO GROWTH: FINAL REPORT 81 NO GROWTH: FINAL REPORT 82 NO GROWTH: FINAL REPORT 83 ---- RUN DATE: 03/19/12 [facility] NMI LIVE PAGE 1 RUN TIME: 1450 Specimen Inquiry RUN USER: INTERFACE -- Name: NEDA GLYNN Status: DIS IN Re03/02/12 Age/Sex: 82/F Unit#: [id number] Location: [facility]. 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 GROSS DESCRIPTION The specimen is received in formalin labelled Neda Glynn, T11 to L1 Lamina, and consists of multiple fragments of bone measuring in aggregate 4.5 x 4.0 x 3.2 cm. Cement Rubber section, one cassette after decalcification. DIAGNOSIS Bone, T11 to L1 lamina, laminectomy: A. Bone with reactive changes. B. Normocellular bone marrow for age (20%) with mixed trilineal hematopoiesis. Signed Electronically by: ALPHONSO ROOT 03/19/12 1451 -- -- DEPARTMENT OF PATHOLOGY, [address] [place] [address] [facility] Permit #[id number] Yair Echols M.D. Director Alphonso Root M.D. Board Of Directors Dir steve -- 84 Anion gap measurement may be of limited value in the presence of any alkalosis, especially in a combined acid base disorder. . 85 Because ethnic data is not always readily [...] 15-29 5 Kidney failure <15 (or dialysis) 86 Recommended INR for Patients on Oral Anticoagulants Prophylaxis 2.0 - 3.0 Treatment of thrombosis 2.0 - 3.0 Prevention of embolism 2.0 - 3.0 Prevention of embolism from prosthetic heart valves 2.5 - 3.5 87 DIAGNOSIS,TREATMENT,AND THERAPY MUST BE BASED ON THE INR VALUE ALONE. 88 PREADMISSION TESTING SAMPLES FOR BLOOD BANK WILL [...] WITHIN 3 DAYS OF THE SURGERY DATE. 89 AA 02/18 90 Recommended INR for Patients on Oral Anticoagulants Prophylaxis 2.0 - 3.0 Treatment of thrombosis 2.0 - 3.0 Prevention of embolism 2.0 - 3.0 Prevention of embolism from prosthetic heart valves 2.5 - 3.5 91 DIAGNOSIS,TREATMENT,AND THERAPY MUST BE BASED ON THE INR VALUE ALONE. 92 Anion gap measurement may be of limited value in the presence of any alkalosis, especially in a combined acid base disorder. . 93 Because ethnic data is not always readily [...] 15-29 5 Kidney failure <15 (or dialysis) 94 PREADMISSION TESTING SAMPLES FOR BLOOD BANK WILL [...] WITHIN 3 DAYS OF THE SURGERY DATE. 95 Note: Persistent reduction for 3 months or more in an eGFR <60 mL/min/1.73 m2 defines CKD. Patients with eGFR values >/=60 mL/min/1.73 m2 may also have CKD if evidence of persistent proteinuria is present. The original MDRD equation for estimated GFR is not valid for patients less than 18 years of age. Additional information may be found at [email or web address]. 96 A1c value between 5.7% and 6.4% is considered at increased risk for diabetes. A1c value greater than 6.5 % is considered essentially diagnostic for Type II diabetes. Current guidelines recommend a treatment goal of <7% for diabetic patients. This method will measure glycosylated hemoglobin variants, HbS, HbG, HbH, HbWayne, HbC, HbE, etc. Other hemoglobin- opathies may give incorrect results with this test. Procedures Date Code Description Status 11/26/2018 68168 EKG Tracing & Interpretation Completed 04/16/2018 [id number] Colonoscopy Completed 04/16/2018 11339 Colonoscopy Flexible Diagnostic Completed 01/19/2018 51839 EKG, Tracing Only, No Interpretation Completed 02/11/2016 37045 Pure Tone Hearing Test, Air Completed 05/22/2015 65987 ECHO Transthorasic Realtime 2D W Doppler & Color Flow Completed Hosp 05/17/2015 55791 Laminectomy W/Expl &/Or Decomp Of Spinal Cord &/Or Completed Cauda Equina 05/07/2015 18114 EKG, Interpretation Only Completed 11/10/2014 71887 Inject/Drain Joint/Bursa Major W/O US Completed 02/06/2014 84938 Pure Tone Hearing Test, Air Completed 03/02/2012 39924 Patton/Facet/Foraminotomy;Ea Addl Segment; Cerv, Thora, Or Completed Lumbar 03/02/2012 25887 Patton/Facet/Foraminotomy;Vertebral Segment; Lumbar Completed 02/10/2012 82423 EKG, Interpretation Only Completed 02/03/2012 14456 Pure Tone-Air Condition Only Completed 08/14/2011 91782 Admin Of Inj Completed 05/30/2009 04019 Pure Tone-Air Condition Only Completed 12/19/1997 06863 Intramuscular Injection Completed 12/15/1997 62138 Intramuscular Injection Completed 12/14/1997 92580 Intramuscular Injection Completed 12/12/1997 12100 Intramuscular Injection Completed Encounters Type Date Location Provider Dx Diagnosis Office Visit 11/26/2018 [facility] [address] [facility] ALYSSA Winkler Z01.818 Encounter for other 9:15a preprocedural examination I65.22 Occlusion and stenosis of left carotid artery M47.12 Other spondylosis with myelopathy, cervical region M48.062 Spinal stenosis, lumbar region with neurogenic claudication I10 Essential (primary) hypertension E78.5 Hyperlipidemia, unspecified 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 Viktor Corrigan, I26.09 Other pulmonary 12:00p Assocviktoriya M.D. embolism with Hospitalists acute cor pulmonale R00.1 Bradycardia, unspecified R40.4 Transient alteration of awareness Office Visit 05/22/2015 [facility] I26.09 Other pulmonary 11:58a viktoriya Persaud II, M.D. embolism with Hospitalists acute cor pulmonale R00.1 Bradycardia, unspecified R40.4 Transient alteration of awareness Office Visit 05/22/2015 12:59p [facility] Edilberto Sánchez I26.99 Other pulmonary Of Hong Levy M.D. embolism without acute cor pulmonale R00.1 Bradycardia, unspecified I95.9 Hypotension, unspecified Office Visit 05/02/2015 Neurosurgery Will Bruner M47.12 Other spondylosis 3:40p Services Of Hong Herron M.D. with myelopathy, [place] cervical region Office Visit 03/23/2015 Neurosurgery Will Bruner 721.1 Spondylosis 3:20p Services Of Hong Herron M.D. Cervical W/ Myelopathy Office Visit 02/15/2012 Neurosurgery Will Bruner 721.1 Spondylosis 10:00a Services Of Hong Herron M.D. Cervical W/ Myelopathy 722.72 Intervertebral Disc Disorder Thoracic W/ Myelopathy Office Visit 02/10/2012 3:00p Neurosurgery Will Bruner 721.1 Spondylosis Services Of Hong Herron M.D. Cervical W/ Myelopathy 722.72 Intervertebral Disc Disorder Thoracic W/ Myelopathy Office Visit 2012 Neurosurgery Will Bruner 722.72 Intervertebral Disc 10:00a Services Of Hong Herron M.D. Disorder Thoracic [place] W/ Myelopathy Office Visit 10/15/2011 Neurosurgery Will Bruner 722.72 Intervertebral Disc 11:20a Services Of Hong Herron M.D. Disorder Thoracic [place] W/ Myelopathy Office Visit 09/10/2011 Neurosurgery Will Bruner 722.72 Intervertebral Disc 11:00a Services Of Hong Herron M.D. Disorder Thoracic [place] W/ Myelopathy Plan of Treatment Future Appointment(s):01/18/2019 8:00 am - ALYSSA Winkler at [facility] Primary [facility]09/2018 - WU Winkler01.818 Encounter for other preprocedural examinationNew Orders:EKG, Ordered: 11/26/18EKG, Ordered: 11/26/18I65.22 Occlusion and stenosis of left carotid addrwbV21.12 Other spondylosis with myelopathy, cervical apjajbM86.062 Spinal stenosis, lumbar region with neurogenic jeetzminktmcZ59 Essential (primary) ukcmmggviwzjP01.5 Hyperlipidemia, jnsmnpwhelkO36.038 Personal history of other malignant neoplasm of large bfoydpP45.89 Other specified disorders of brain
[2018-12-31 16:52] VITALS: BP 112/51
--- NOTE | 2018-12-31 17:23 | ED ---
Back Pain - HPI Summary HPI Summary: pt presents for evaluation of her left back pain. she has one red spot and she is concerned that this may be the beginning of shingles. she has an appt to see her doctor on Thursday. - History of Current Complaint Chief Complaint: UCBackPain Stated Complaint: BACK PAIN Hx Obtained From: Patient, Family/Hypertrichologist Onset/Duration: Gradual Onset Onset/Duration: Started Days Ago Timing: Constant Severity Initially: Moderate Severity Currently: Moderate Pain Intensity: 9 - Allergies/Home Medications Allergies/Adverse Reactions: Allergies Allergy/AdvReac Type Severity Reaction Status Date / Time nitrofurantoin Allergy Hives Verified 12/31/18 16:53 [From Macrobid] Penicillins Allergy Hives Verified 12/31/18 16:53 phenobarbital Allergy Hives Verified 12/31/18 16:53 sulfamethoxazole Allergy Hives Verified 12/31/18 16:53 [From Bactrim] trimethoprim [From Bactrim] Allergy Hives Verified 12/31/18 16:53 Home Medications: Home Medications Acetaminophen [Tylenol] 650 mg PO Q8HR PRN 12/31/18 [History Confirmed 12/31/18] Clopidogrel Bisulfate [Plavix] 75 mg PO DAILY 12/31/18 [History Confirmed ] Gabapentin [Neurontin] 100 mg PO DAILY 12/31/18 [History Confirmed 12/31/18] Hydrocodone/Acetaminophen [Hydrocodone/Acetaminophen 5-325 mg] 1 tab PO Q4HR PRN 12/31/18 [History Confirmed 12/31/18] PMH/Surg Hx/FS Hx/Imm Hx Previously Healthy: Yes Endocrine/Hematology History: Denies: Hx Diabetes Cardiovascular History: Reports: Hx Hypertension GI History: Reports: Hx Gastroesophageal Reflux Disease - ON DAILY MEDS Musculoskeletal History: Reports: Hx Arthritis - GENERAL, MOST JOOINTS, Hx Back Problems Sensory History: Reports: Hx Contacts or Glasses - GLASSES, Hx Hearing Aid - BOTH EARS, DOESN'T ALWAYS WEAR Opthamlomology History: Reports: Hx Contacts or Glasses - GLASSES - Surgical History Surgery Procedure, Year, and Place: YOUNG CHILD [place]DECTOMY [place]. 1959 GALLBLADER [place]. 1974 [place]CTOMY [place]. 2011 LAMINECTOMY [facility] [place]. eye surgery. shoulder RCT repair. left carotid artery-12/11/2018 Hx Anesthesia Reactions: No Infectious Disease History: No Infectious Disease History: Denies: Traveled Outside the [place] in Last 30 Days - Family History Known Family History: Positive: Cardiac Disease, Hypertension Negative: Diabetes - Social History Alcohol Use: None Substance Use Type: Reports: None Smoking Status (MU): Never Smoked Tobacco Have You Smoked in the Last Year: No Review of Systems Constitutional: Negative Eyes: Negative ENT: Negative Cardiovascular: Negative Respiratory: Negative Gastrointestinal: Negative Genitourinary: Negative Positive: Other - left back pain Positive: Rash - left back 1 small plaque Neurological: Negative Psychological: Normal All Other Systems Reviewed And Are Negative: No Physical Exam Triage Information Reviewed: Yes Vital Signs On Initial Exam: Initial Vitals Temp Pulse Resp BP Pulse Ox 98.3 F 78 16 112/51 98 12/31/18 16:42 12/31/18 16:42 12/31/18 16:42 12/31/18 16:42 12/31/18 16:42 Vital Signs Reviewed: Yes Appearance: Positive: Well-Appearing, No Pain Distress, Well-Nourished Skin: Positive: Warm, Dry, Other - 1 small 2x3 cm plaque which is tender to palpation. no scaling, it is not a bruise. no swelling. no induration. Eyes: Positive: Normal, AKBAR ENT: Positive: Hearing grossly normal Neck: Positive: Supple, Nontender Respiratory/Lung Sounds: Positive: Clear to Auscultation, Breath Sounds Present Cardiovascular: Positive: Normal, RRR Abdomen Description: Positive: Nontender, Soft Bowel Sounds: Positive: Present Musculoskeletal: Positive: Normal, Strength/ROM Intact, Other - small area over prachi rash tender to left back Neurological: Positive: Normal, Sensory/Motor Intact, Alert, Oriented to Person Place, Time, CN Intact II-III Psychiatric: Positive: Normal AVPU Assessment: Verbal (Reponds To) Diagnostics - Vital Signs Vital Signs Temp Pulse Resp BP Pulse Ox 12/31/18 16:42 98.3 F 78 16 112/51 98 - Laboratory Lab Statement: Any lab studies that have been ordered have been reviewed, and results considered in the medical decision making process. Back Pain Course/Dx - Course Course Of Treatment: family is concerned this is zoster. I discussed with them that it is too early to determine this. i encouraged them to f/u with pcp. i ordered a lidoderm patch. pt has an appt with pcp on thursday. - Diagnoses Provider Diagnoses: Back pain, Rash Discharge - Sign-Out/Discharge Documenting (check all that apply): Patient Departure All imaging exams completed and their final reports reviewed: No Studies - Discharge Plan Condition: Stable Disposition: HOME Prescriptions: Lidocaine PATCH 5%* [Lidoderm 5% Patch*] 1 patch TRANSDERM DAILY #20 patch Patient Education Materials: Back Pain (ED) Referrals: Jossie Mc PA [Primary Care Provider] - Additional Instructions: Please keep your appointment with your pcp on thursday. continue to take all other medications as previously instructed. you may try heat therapy. this may be an early presentation for shingles. this is why it is imperative to follow up with your primary care physician. - Billing Disposition and Condition Condition: STABLE Disposition: Home
== END 2018-12-31 17:34 | disposition home or self-care (01) ==
LOC: UCCORT 14:33
DX: M54.9 Dorsalgia, unspecified (principal); R21 Rash and other nonspecific skin eruption; I10 Essential (primary) hypertension; K21.9 Gastro-esophageal reflux disease without esophagitis; Z79.899 Other long term (current) drug therapy; Z79.02 Long term (current) use of antithrombotics/antiplatelets; Z88.1 Allergy status to other antibiotic agents; Z88.0 Allergy status to penicillin; Z88.2 Allergy status to sulfonamides; Z91.018 Allergy to other foods
CPT/HCPCS: 99212; G0463

== ENCOUNTER 2019-06-02 13:30 | Emergency (ER) | payer MEDICARE ==
--- OUTSIDE RECORDS SUMMARY | 2019-06-02 15:59 | XMS REPORT | Continuity of Care Document ---
:1930 External Reference #:[id number] Author Name ALYSSA Winkler (transmitted by agent of provider Lew Judd) Address [address] [place] [address] Care Team Providers Name Role Phone Robin Oscar MD - Family Care Team Information [phone] Medicine Change Number Operator Mustapha Huang MD - Vascular Surgery Care Team Information [phone] Change Number Operator Niurka Moreno MD - Care Team Information [phone] Ophthalmology Change Number Operator Arben Marks MD - Surgery Care Team Information [phone] Change Number Operator Samuel Altamirano DO - Hematology & Care Team Information [phone] Oncology Change Number Operator Jakob Trujillo MD - Cardiovascular Care Team Information [phone] Disease Change Number Operator Fermin Loza MD - Care Team Information [phone] Neuromusculoskeletal Medicine, Sports Change Number Operator Medicine Will Herron MD - Neurological Care Team Information [phone] Surgery Change Number Operator Jossie Mc PA - Physician Immigration Officer Care Team Information [phone] Change Number Operator Problems Active Problems Provider Date Cervical spondylosis [...] test Onset: 06/26/2011 Anxiety state Onset: 06/26/2011 Backache ALYSSA Winkler Onset: 01/05/2019 Spondylolisthesis ALYSSA Winkler Onset: 01/18/2019 Magnetic resonance imaging of brain abnormal ALYSSA Winkler Onset: 01/18/2019 Social History Type Date Description Comments Sex Unknown ETOH Use Denies alcohol use Tobacco Use Start: Unknown Patient has never smoked Recreational Drug Use Denies Drug Use Smoking Status Reviewed: 04/19/19 Patient has never smoked Exercise Type/Frequency Exercises rarely Allergies, Adverse Reactions, Alerts Active Allergies Reaction Severity Comments Date Penicillin 03/23/2015 Phenobarbital 03/23/2015 Bactrim 03/23/2015 Erythromycin 03/23/2015 Nitrofurantoin, Macrocrystals / Free Text 07/30/2018 Nitrofurantoin, Monohydrate Medications Active Medications SIG Qnty Indications Ordering Date Provider Shingrix administer first 2units Z23 Robin 10/19/2018 50mcg/0.5ML injection and then MD Dayne Suspension Rec second injection in 6 months Gabapentin one pill three times 90caps M47.12 Robin 03/23/2015 100mg a day MD Dayne Capsules Walker/Four Post due to inability to 1units Will Bruner 03/30/2012 walk from myelopathy Nini Herron [facility] [place] [facility] due to T11-L1 conus compression, post-op decompressive laminectomy. Aspir-81 1 by mouth every day Unknown 81mg Tablets DR Multivitamins 1 by mouth every day Unknown Capsules Calcium 1 po qd Unknown Capsules Tylenol Arthritis 2 by mouth every 8 Unknown Pain hours as needed 650mg Tablets ER Immunizations CPT Code Status Date Vaccine Lot # [id number] Given 07/29/2018 Fluzone High Dose 44610 Given 01/28/2018 Tdap - Tetanus/Diptheria/Acellular Pertussis 66718 Given 03/23/2017 Pneumococcal Conjugate Vaccine 13 Valent For Intramuscular Use 24840 Given 03/23/2017 Fluzone High Dose 65610 Given 05/13/2016 Fluzone High Dose 23870 Given 03/29/2015 Fluzone High Dose 08780 Given 05/10/2014 Fluzone High Dose 20471 Given 04/13/2013 Fluzone High Dose 76964 Given 04/12/2012 Fluzone High Dose 69659 Given 03/19/2011 Influenza Virus 3Yrs & Over 20921 Given 04/30/1999 Flu Vaccine 23794 Given 05/17/1997 Flu Vaccine 16693 Given 01/26/1997 Tetanus Toxoid Adsorbed, For Intramuscular Use 11598 Given 06/23/1995 Flu Vaccine 65138 Given 04/17/1994 Flu Vaccine 77156 Given 05/03/1993 Flu Vaccine Vital Signs Date Vital Result Comment 04/19/2019 8:17am Weight 144.56 lb BP Systolic Sitting 130 mmHg BP Diastolic Sitting 70 mmHg 01/18/2019 7:59am Height 59.8 inches 4'11.80" Weight 145.44 lb BP Systolic Sitting 118 mmHg BP Diastolic Sitting 60 mmHg BMI (Body Mass Index) 28.6 kg/m2 Results Test Date Facility Test Result H/L Range Note Urine Culture And 12/01/2018 [facility] Urine SEE RESULT 1 , [address] [place] [address] [phone] Basic Metabolic 11/26/2018 [facility] Sodium 142 mmol/L Normal 135-[address] [place] [address] [phone] Potassium 5.0 mmol/L Normal 3.5-5.0 Chloride 107 mmol/L Normal 101-111 Co2 Carbon Dioxide 26 mmol/L Normal 22-32 Anion Gap 9 mmol/L Normal 2-11 Glucose 100 mg/dL Normal 70-100 Blood Urea Nitrogen 30 mg/dL High 6-24 Creatinine 1.07 mg/dL High 0.51-0.95 BUN/Creatinine Ratio 28.0 High 8-20 Calcium 10.3 mg/dL Normal 8.6-10.3 Egfr Non- 48.6 >60 Egfr 58.8 >60 3 CBC Auto 11/26/2018 [facility] White Blood 9.5 10^3/uL Normal 3.5-10.[address] [place] [address] [phone] Red Blood Count 4.22 10^6/uL Normal 3.70-4.87 Hemoglobin 11.4 g/dL Low 12.0-16.0 Hematocrit 36 % Normal 35-47 Mean Corpuscular Volume 85 fL Normal 80-97 Mean Corpuscular Hemoglobin 27 pg Normal 27-31 Mean Corpuscular HGB Conc 32 g/dL Normal 31-36 Red Cell Distribution Width 17 % High 10.5-15 Platelet Count 307 10^3/uL Normal 150-450 Mean Platelet Volume 8.5 fL Normal 7.4-10.4 Abs Neutrophils 6.4 10^3/uL Normal 1.5-7.7 Abs Lymphocytes 2.2 10^3/uL Normal 1.0-4.8 Abs Monocytes 0.7 10^3/uL Normal 0-0.8 Abs Eosinophils 0.2 10^3/uL Normal 0-0.6 Abs Basophils 0.1 10^3/uL Normal 0-0.2 Abs Nucleated RBC 0.0 10^3/uL Granulocyte % 67.1 % Lymphocyte % 22.7 % Monocyte % 7.5 % Eosinophil % 2.2 % Basophil % 0.5 % Nucleated Red Blood Cells % 0.0 Liver Function 11/26/2018 [facility] Total Protein 7.8 g/dL Normal 6.4-8.[address] [place] [address] [phone] Albumin 4.8 g/dL Normal 3.2-5.2 Globulin 3.0 g/dL Normal 2-4 Albumin/Globulin Ratio 1.6 Normal 1-3 Total Bilirubin 0.60 mg/dL Normal 0.2-1.0 Direct Bilirubin 0.10 mg/dL Normal 0.03-0.18 Indirect Bilirubin 0.5 mg/dL Normal 0.3-1.0 Alkaline Phosphatase 50 U/L Normal 34-104 Alt 11 U/L Normal 7-52 Ast 19 U/L Normal 13-39 Lipid Profile 11/26/2018 [facility] Triglycerides 252 mg/dL 4 (Trig/Chol/HDL) [address] [place] [address] [phone] Cholesterol 246 mg/dL 5 HDL Cholesterol 53.1 mg/dL 6 LDL Cholesterol 143 mg/dL 7 Laboratory 11/26/2018 [facility] TSH (Thyroid 1.26 Normal 0.34 -5.60 test finding [address] Stim Horm) mcIU/[place] [address] [phone] Hemoglobin A1c (Glyco HGB) 6.3 % High 4.0-5.6 8 1 [id number] 2 SEE RESULT BELOW Name: NEDA GLYNN Laron : [address]: Jossie SHAH Acct: [id number] Unit: [id number] AGE: 88 Location: [facility] Re12/01/18 SEX: F Status: REG REF SPEC: [id number] JACE: 12/01/18-1305 [facility] DR: Jossie SHAH REQ: [id number] RECD: 12/01/18 STATUS: COMP _ SOURCE: URINE SPDESC: ORDERED: Urine Culture COMMENTS: [id number] Urine Source: Random Procedure Result Reported Site Urine Culture Final 12/02/18- 1307 ML Few Enterobacteriacae; possible contamination. * ML - Main Lab . END OF REPORT DEPARTMENT OF PATHOLOGY, [address] [place] [address] Yair Echols M.D. Director [facility] # [id number] 3 Because ethnic data is not always [...] in selective patients <6.0%. Please refer to [place] [employer] diabetic care guidelines for further information. Procedures Date Code Description Status 11/26/2018 34369 EKG Tracing & Interpretation Completed 04/16/2018 [id number] Colonoscopy Completed Medical Devices Description No Information Available Encounters Type Date Location Provider Dx Diagnosis Office Visit 01/18/2019 [facility] ALYSSA Winkler M47.14 Other spondylosis 8:00a with myelopathy, thoracic region M47.26 Other spondylosis with radiculopathy, lumbar region I65.22 Occlusion and stenosis of left carotid artery G93.89 Other specified disorders of brain Office Visit 01/04/2019 1:15p [facility] Primary ALYSSA Winkler M47.14 Other spondylosis Care with myelopathy, thoracic region M47.26 Other spondylosis with radiculopathy, lumbar region Office Visit 11/26/2018 9:15a [facility] Primary ALYSSA Winkler Z01.818 Encounter for other Care preprocedural examination I65.22 Occlusion and stenosis of left carotid artery M47.12 Other spondylosis with myelopathy, cervical region M48.062 Spinal stenosis, lumbar region with neurogenic claudication I10 Essential (primary) hypertension E78.5 Hyperlipidemia, unspecified Z85.038 Personal history of malignant neoplasm of large intestine G93.89 Other specified disorders of brain Office Visit 10/19/2018 10:00a [facility] Primary ALYSSA Winkler L30.9 Dermatitis, Care unspecified R51 Headache R20.0 Anesthesia of skin G45.9 Transient cerebral ischemic attack, unspecified Z23 Encounter for immunization Assessments Date Code Description Provider 04/19/2019 M47.12 Other spondylosis with myelopathy, cervical region ALYSSA Winkler 04/19/2019 M48.062 Spinal stenosis, lumbar region with neurogenic ALYSSA Winkler claudication 04/19/2019 I10 Essential (primary) hypertension ALYSSA Winkler 04/19/2019 D64.9 Anemia, unspecified ALYSSA Winkler 01/18/2019 M47.14 Other spondylosis with myelopathy, thoracic region ALYSSA Winkler 01/18/2019 M47.26 Other spondylosis with radiculopathy, lumbar region ALYSSA Winkler 01/18/2019 I65.22 Occlusion and stenosis of left carotid artery ALYSSA Winkler 01/18/2019 G93.89 Other specified disorders of brain ALYSSA Winkler 01/04/2019 M47.14 Other spondylosis with myelopathy, thoracic region ALYSSA Winkler 01/04/2019 M47.26 Other spondylosis with radiculopathy, lumbar region ALYSSA Winkler 11/26/2018 Z01.818 Encounter for other preprocedural examination ALYSSA Winkler 11/26/2018 I65.22 Occlusion and stenosis of left carotid artery ALYSSA Winkler 11/26/2018 M47.12 Other spondylosis with myelopathy, cervical region ALYSSA Winkler 11/26/2018 M48.062 Spinal stenosis, lumbar region with neurogenic ALYSSA Winkler claudication 11/26/2018 I10 Essential (primary) hypertension ALYSSA Winkler 11/26/2018 E78.5 Hyperlipidemia, unspecified ALYSSA Winkler 11/26/2018 Z85.038 Personal history of other malignant neoplasm of AYLSSA Winkler large intest 11/26/2018 G93.89 Other specified disorders of brain ALYSSA Winkler 10/19/2018 L30.9 Dermatitis, unspecified ALYSSA Winkler 10/19/2018 R51 Headache ALYSSA Winkler 10/19/2018 R20.0 Anesthesia of skin ALYSSA Winkler 10/19/2018 G45.9 Transient cerebral ischemic attack, unspecified ALYSSA Winkler 10/19/2018 Z23 Encounter for immunization ALYSSA Winkler Plan of Treatment Future Appointment(s):07/12/2019 9:00 am - ALYSSA Winkler at [facility] - KRISTIN Winkler47.12 Other spondylosis with myelopathy, cervical regionFollow up:3 wlccuG55.062 Spinal stenosis, lumbar region with neurogenic cubmhinbespxB16 Essential (primary) bxfmhetuzvulE27.9 Anemia, unspecified Functional Status Functional Condition Comment Date Status Bifocal glasses Active Standard cane is used with the right hand to ambulate Active Mental Status Description No Information Available Referrals Refer to Reason for Referral Status Appt Date Mustapha Huang MD Please see Results of Doppler Scan. Sent 11/19/[address] [place] [address] [address] [place] [address] [phone] Arben Loaiza M.D. Created [address] [facility] [place] [address] [place] [address] [phone]
--- OUTSIDE RECORDS SUMMARY | 2019-06-02 15:59 | XMS REPORT | Continuity of Care Document ---
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 [phone] Problems Active Problems Provider Date Preoperative cardiovascular GrellaSabrina, ANP Onset: 02/17/2012 examination Heart murmur Sabrina Wilkins, ANP Onset: 02/17/2012 Mixed hyperlipidemia GrellSabrina lomax A., ANP Onset: 02/17/2012 Benign essential hypertension FrancescallSabrina lomax A., ANP Onset: 02/17/2012 Chest pain Sabrina Wilkins, ANP Onset: 04/28/2012 Essential hypertension Jakob Trujillo M.D., [facility] Onset: 05/15/2015 Hyperlipidemia Jakob Trujillo M.D., [facility] Onset: 05/15/2015 Low blood pressure Jakob Trujillo M.D., FACC Onset: 05/29/2015 Edema Jakob Trujillo M.D., FACC Onset: 05/29/2015 Full thickness rotator cuff tear Fermin Loza M.D. Onset: 07/25/2015 Acquired trigger finger Cora Luciano PA Onset: 10/10/2015 Pain in limb Fermin Loza M.D. Onset: 10/26/2015 Joint ankylosis of the shoulder Fermin Loza M.D. Onset: 11/21/2015 region Adhesive capsulitis of shoulder Fermin Loza M.D. Onset: 12/12/2015 Brachial neuritis Fermin Loza M.D. Onset: 04/21/2016 Carpal tunnel syndrome Fermin Loza M.D. Onset: 04/21/2016 Abdominal pain Bernardo Leary MD Onset: 10/31/2016 Gastrointestinal tract finding Bernardo Leary MD Onset: 10/31/2016 Gastroparesis syndrome Bernardo Leary MD Onset: 10/31/2016 Esophageal dysmotility Bernardo Leary MD Onset: 10/31/2016 Malignant tumor of ascending colon Bernardo Leary MD Onset: 01/28/2017 Malignant tumor of transverse colon Bernardo Leary MD Onset: 01/28/2017 Anemia Samuel Altamirano DO Onset: 01/28/2017 Iron deficiency Samuel Altamirano DO Onset: 03/24/2017 Screening for malignant neoplasm of Arben Marks M.D. Onset: colon History of malignant neoplasm of Arben Marks M.D. Onset: 03/10 colon Encounter for follow-up examination Arben Marks M.D. Onset: after completed treatment for malignant neoplasm Vitamin B deficiency Kathi Del Valle DO Onset: 02/15/2019 Social History Type Date Description Comments Sex Unknown Tobacco Use Start: Unknown Never Smoked Cigarettes ETOH Use Denies alcohol use Tobacco Use Start: Unknown Patient has never smoked Recreational Drug Use Denies Drug Use Smoking Status Reviewed: 02/08/19 Patient has never smoked Allergies, Adverse Reactions, Alerts Active Allergies Reaction Severity Comments Date Penicillin Penicillins 08/13/2015 Bactrim Erythromycin Base 08/13/2015 Macrobid Sulfamethoxazole 08/13/2015 Phenobarbital Trimethoprim 08/13/2015 Medications Active Medications SIG Qnty Indications Ordering Provider Date Aspirin Ec 1 po qd 60tabs Unknown 81mg Tablets DR Multi Complete 1 by mouth Unknown Capsules every day Calcium 1200 chew one by Unknown mouth daily [id number] Chewtabs Tylenol Extra Strength 2 tab every day Unknown am, noon, pm 500mg Tablets Gabapentin 1 tab 3x daily Unknown 100mg Capsules Medications Administered in Office Medication SIG Qnty Indications Ordering Provider Date Betamethasone Acetate & Sodium Cora Luciano PA 10/10/2015 Phosphate 3 MG Of Each Injection Immunizations Description No Information Available Vital Signs Date Vital Result Comment 04/26/2019 1:42pm BP Systolic 142 mmHg BP Diastolic 54 mmHg Body Temperature 98.5 F Heart Rate 82 /min Respiratory Rate 18 /min Weight 141.50 lb O2 % BldC Oximetry 97 % Pain Level 0 02/15/2019 4:55pm BP Systolic 158 mmHg BP Diastolic 70 mmHg Body Temperature 97.9 F Heart Rate 74 /min Respiratory Rate 18 /min Weight 145.00 lb O2 % BldC Oximetry 95 % Pain Level 0 Results Test Date Facility Test Result H/L Range Note CBC 04/19/2019 [facility] White Blood 7.3 K/uL Normal 3.1-10.7 1 W/Automated [address] [place] [address] [phone] Red Blood Count 4.17 M/uL Normal 3.90-5.40 Hemoglobin 12.1 gm/dL Normal 11.6-15.8 Hematocrit 39.9 % Normal 36.0-46.1 Mean Cell Volume 95.7 fl Normal 80.9-99.0 Mean Corpuscular HGB 29.0 pg Normal 25.9-32.7 Mean Corpuscular HGB Conc 30.3 g/dL Low 30.8-34.3 Platelet Count 257 K/uL Normal 155-360 Red Cell Distri Width SD 69.4 fl High 36-47 Red Cell Distri Width %CV 19.9 % High 11.7-14.4 Mean Platelet Volume 11.0 fl Normal 8.9-12.4 Neut% 70.5 % Normal 40.4-72.8 Lymph % 19.3 % Low 20.0-42.0 [place] % 7.4 % Normal 4.3-13.2 Eo% 2.0 % Normal 0.0-6.6 Bas% 0.4 % Normal 0.0-1.1 Immature Grans 0.4 % Normal 0.0-5.0 NRBC % 0.0 /100WBC < 10/ 100 WBC Neut# 5.17 K/uL Normal 1.8-7.0 Lymph # 1.42 K/uL Normal 1.0-4.0 [place] # 0.54 K/uL Normal 0.3-0.9 Eos # 0.15 K/uL Normal 0.0-0.5 Baso # 0.03 K/uL Normal 0.0-0.1 Immature Grans Absolute 0.03 K/uL NRBC # 0.00 K/uL Comprehensive Metabolic 04/19/2019 [facility] Glucose 112 mg/dL High 74-106 Panel [address] [place] [address] [phone] BUN 21 mg/dL High 7-18 Creatinine 1.1 mg/dL Normal 0.6-1.3 Glom Filtration Rate, Estimate 50 mL/min >60 If 60 mL/min >60 2 BUN/Creat 19.0 ratio Sodium 139 mmol/L Normal 136-145 Potassium 4.4 mmol/L Normal 3.5-5.1 Chloride 104 mmol/L Normal 98-107 Carbon Dioxide 29 mmol/L Normal 21-32 Anion Gap 6 mEq/L Low 8-16 Calcium 10.3 mg/dL High 8.5-10.1 Total Protein 8.0 g/dL Normal 6.4-8.2 Albumin 4.2 g/dL Normal 3.4-5.0 Globulin 3.8 g/dL Normal 1.9-4.3 Alb/Glob 1.1 ratio Bilirubin,Total 0.5 mg/dL Normal 0.2-1.0 Sgot/Ast 20 U/L Normal 15-37 SGPT/Alt 17 U/L Normal 12-78 Alkaline Phosphatase 58 U/L Normal 45-117 Iron-Tibc-%Sat 04/19/2019 [facility] Serum Iron 86 g/dL Normal 50-170 [address] [place] [address] [phone] Total Iron Binding Capacity 365 g/dL Normal 250-450 Transferrin %Saturation 24 % Normal 12-57 Laboratory test 04/19/2019 [facility] Ferritin 135 ng/mL Normal 8-252 finding [address] [place] [address] [phone] Cea 7.8 ng/mL 3 Slide Review 04/19/2019 [facility] Slide Review (SEE NOTE) 4 [address] [place] [address] [phone] CBC 02/08/2019 [facility] White Blood 11.1 K/uL High 3.1-10.7 5 W/Automated [address] [place] [address] [phone] Red Blood Count 3.70 M/uL Low 3.90-5.40 Hemoglobin 9.9 gm/dL Low 11.6-15.8 Hematocrit 32.7 % Low 36.0-46.1 Mean Cell Volume 88.4 fl Normal 80.9-99.0 Mean Corpuscular HGB 26.8 pg Normal 25.9-32.7 Mean Corpuscular HGB Conc 30.3 g/dL Low 30.8-34.3 Platelet Count 308 K/uL Normal 155-360 Red Cell Distri Width SD 53.9 fl High 36-47 Red Cell Distri Width %CV 16.6 % High 11.7-14.4 Mean Platelet Volume 10.8 fl Normal 8.9-12.4 Neut% 72.4 % Normal 40.4-72.8 Lymph % 19.0 % Low 20.0-42.0 [place] % 6.0 % Normal 4.3-13.2 Eo% 1.8 % Normal 0.0-6.6 Bas% 0.3 % Normal 0.0-1.1 Immature Grans 0.5 % Normal 0.0-5.0 NRBC % 0.0 /100WBC < 10/ 100 WBC Neut# 8.06 K/uL High 1.8-7.0 Lymph # 2.12 K/uL Normal 1.0-4.0 [place] # 0.67 K/uL Normal 0.3-0.9 Eos # 0.20 K/uL Normal 0.0-0.5 Baso # 0.03 K/uL Normal 0.0-0.1 Immature Grans Absolute 0.06 K/uL NRBC # 0.00 K/uL Comprehensive 02/08/2019 [facility] Glucose 91 mg/dL Normal 74-106 Metabolic Panel [address] [place] [address] [phone] BUN 26 mg/dL High 7-18 Creatinine 1.1 mg/dL Normal 0.6-1.3 Glom Filtration Rate, Estimate 50 mL/min >60 If 60 mL/min >60 6 BUN/Creat 23.6 ratio Sodium 141 mmol/L Normal 136-145 Potassium 4.1 mmol/L Normal 3.5-5.1 Chloride 107 mmol/L Normal 98-107 Carbon Dioxide 26 mmol/L Normal 21-32 Anion Gap 8 mEq/L Normal 8-16 Calcium 9.7 mg/dL Normal 8.5-10.1 Total Protein 8.3 g/dL High 6.4-8.2 Albumin 4.0 g/dL Normal 3.4-5.0 Globulin 4.3 g/dL Normal 1.9-4.3 Alb/Glob 0.9 ratio Bilirubin,Total 0.4 mg/dL Normal 0.2-1.0 Sgot/Ast 18 U/L Normal 15-37 SGPT/Alt 16 U/L Normal 12-78 Alkaline Phosphatase 60 U/L Normal 45-117 Iron-Tibc-%Sat 02/08/2019 [facility] Serum Iron 33 g/dL Low 50-[address] [place], [place] [id number] [phone] Total Iron Binding Capacity 495 g/dL High 250-450 Transferrin %Saturation 7 % Low 12-57 Laboratory test 02/08/2019 [facility] Ferritin 10 ng/mL Normal 8-252 finding [address] [place], [place] [id number] [phone] Vitamin B12 And 02/08/2019 [facility] Vitamin B12 349 pg/mL Normal 193-986 Folate [address] [place], [place] [id number] [phone] Folic Acid > 20.0 ng/mL High 3.1-17.5 Laboratory test 02/08/2019 [facility] Vitamin 37.7 30.0-100.[address] D,25-Hydroxy ng/mL [place], [place] [id number] [phone] Cea 7.7 ng/mL 8 Sedimentation Rate 29 mm/hr Normal 2-55 9 Erythropoietin (Epo), Serum 71.8 mIU/mL High 2.6-18.5 10 LDH 219 U/L Normal 84-246 Reticulocyte 02/08/2019 [facility] Retic 28.4 pg Normal 27.9-37.0 Count,Automated [address] [place] [place] [address] [phone] Retic % 1.2 % Normal 0.5-1.8 Absolute Retic 45 K/uL Normal 24-84 Immature Retic Fraction 18.6 % High 2.9-15.5 1 E61.1 E53.9 C18.4 2 Note: Persistent reduction for 3 months or more in an eGFR <60 mL/min/1.73 m2 defines CKD. Patients with eGFR values >/=60 mL/min/1.73 m2 may also have CKD if evidence of persistent proteinuria is present. The original MDRD equation for estimated GFR is not valid for patients less than 18 years of age. Additional information may be found at www.kdoqi.org. 3 Non-smokers ..... 0.0-3.0 ng/mL Smokers ......... 0.0-5.0 ng/mL THIS ASSAY IS NOT INTENDED A CANCER SCREENING TEST The concentration of CEA in a given specimen, determined with assays from different manufacturers, can vary due to differences in assay methods and reagent specificity. Values obtained from different assay methods cannot be used interchangeably. Method: [employer] Marion Chemiluminescent Immunoassay 4 Instrument flagged sample for slide review. Less than 10% Bands seen, no other immature WBC's seen. RBC morphology essentially normal. Platelet estimate = NORMAL 5 C18.4 E61.1 D64.9 6 Note: Persistent reduction for 3 months or more in an eGFR <60 mL/min/1.73 m2 defines CKD. Patients with eGFR values >/=60 mL/min/1.73 m2 may also have CKD if evidence of persistent proteinuria is present. The original MDRD equation for estimated GFR is not valid for patients less than 18 years of age. Additional information may be found at www.kdoqi.org. 7 Vitamin D deficiency has been defined by the [place] of [employer] and an Endocrine Society practice guideline as a level of serum 25-OH vitamin D less than 20 ng/mL (1,2). The Endocrine Society went on to further define vitamin D insufficiency as a level between 21 and 29 ng/mL (2). 1. IOM ([place] of [employer]). 2010. Dietary reference intakes for calcium and D. [place]: The National Academies Press. 2. Martha MALCOLM, Henrik FONSECA, Kae MAYS, et al. Evaluation, treatment, and prevention of vitamin D deficiency: an Endocrine Society clinical practice guideline. JCEM. 2010; 96(7):1911-30. Performed at: [address] [id number] College Coach: Shira Renee MD, Phone: [phone] 8 Non-smokers ..... 0.0-3.0 ng/mL Smokers ......... 0.0-5.0 ng/mL THIS ASSAY IS NOT INTENDED A CANCER SCREENING TEST The concentration of CEA in a given specimen, determined with assays from different manufacturers, can vary due to differences in assay methods and reagent specificity. Values obtained from different assay methods cannot be used interchangeably. Method: [employer] Marion Chemiluminescent Immunoassay 9 This result was obtained with an ESR method that is not based on the standard Westergren Method. When comparing results obtained from the traditional Westergren ESR and this method it is important to refer to the reference range for each method. Method: Capillary Photometry 10 [employer] DxI 800 Immunoassay System Values obtained with different assay methods or kits cannot be used interchangeably. Results cannot be interpreted as absolute evidence of the presence or absence of malignant disease. Performed at: [address] [id number] College Coach: Shira Renee MD, Phone: [phone] Procedures Description No Information Available Medical Devices Description No Information Available Encounters Type Date Location Provider Dx Diagnosis Office Visit 02/15/2019 Oncology Office DarrynKathi duong, E61.1 Iron deficiency 4:30p DO E53.9 Vitamin B deficiency, unspecified C18.4 Malignant neoplasm of transverse colon Office Visit 02/08/2019 9:00a Oncology Office Ivon C18.4 Malignant KathiDO neoplasm of transverse colon E61.1 Iron deficiency Assessments Date Code Description Provider 04/26/2019 Z85.038 Personal history of other malignant Yani Mclean NP neoplasm of large intestine 04/19/2019 E61.1 Iron deficiency Kathi Del Valle, DO 04/19/2019 E61.1 Iron deficiency Oncology Nurse 04/19/2019 E53.9 Vitamin B deficiency, unspecified Kathi Del Valle, DO 04/19/2019 E53.9 Vitamin B deficiency, unspecified Oncology Nurse 04/19/2019 C18.4 Malignant neoplasm of transverse colon Kathi Del Valle, DO 04/19/2019 C18.4 Malignant neoplasm of transverse colon Oncology Nurse 02/15/2019 E61.1 Iron deficiency DemetrisKathi grijalva, 02/15/2019 E53.9 Vitamin B deficiency, unspecified Kathi Del Valle, 02/15/2019 C18.4 Malignant neoplasm of transverse colon DarrynKathi duong, DO 02/08/2019 C18.4 Malignant neoplasm of transverse colon Kathi Del Valle, DO 02/08/2019 E61.1 Iron deficiency Kathi Del Valle DO Plan of Treatment Future Appointment(s):07/05/2019 8:30 am - aKthi Del Valle DO at Oncology [facility]6906/28/2019 8:00 am - Oncology Nurse at Oncology [facility]3604/26/2019 - Yani Mclean, NPZ85.038 Personal history of other malignant neoplasm of large intestineComments:Patient's CEA level is stable at 7.8. Was 7.7 in January. Patient denies changes in bowel habits, abdominal pain/discomfort, and blood in the stool. Patient again declines colonoscopy. Repeat blood work in 2 months.Follow up:Follow-up in 2 months with labs prior. Functional Status Functional Condition Comment Date Status Independent with all ADL's Active Mental Status Description No Information Available Referrals Description No Information Available
--- NOTE | 2019-06-02 16:34 | UC ---
Lower Extremity/Ankle HPI - HPI Summary HPI Summary: Per pre press operator: "Pt fell this morning. Moving laundry from washer to dryer and she went down and got twisted up. States her legs were very weak and rubber like. Paramedics helped her up, she refused to go to ER. " -here w/ 2 dtrs. she lives home alone. they take great care of her. home has been modified and they have taken measures to prevent falls. she gets help bathing from her dtr -denies cp/dizziness/lightheadedness. fall was mechanical -hard to take steps w/o help but able to take at least 3 steps with ehlp. has some lateral ankle swelling on left, but not much more than yeysterday per dtrs. went shopping yesterday w/ dtr and gets swelling after that typically. -thinks she inverted her ankle and fell. pain is on left lateral LL and lateral ankle. possible slight bruising. no numbionmg/tingling +OP - History of Current Complaint Chief Complaint: UCLowerExtremity Stated Complaint: L ANKLE INJ Time Seen by Provider: 06/02/19 16:08 Pain Intensity: 10 - Allergies/Home Medications Allergies/Adverse Reactions: Allergies Allergy/AdvReac Type Severity Reaction Status Date / Time nitrofurantoin Allergy Hives Verified 06/02/19 16:10 [From Macrobid] Penicillins Allergy Hives Verified 06/02/19 16:10 phenobarbital Allergy Hives Verified 06/02/19 16:10 sulfamethoxazole Allergy Hives Verified 06/02/19 16:10 [From Bactrim] trimethoprim [From Bactrim] Allergy Hives Verified 06/02/19 16:10 Home Medications: Home Medications Calcium Carbonate [Calcium] 500 mg PO TID 06/02/19 [History Confirmed 06/02/19] Multivitamin [Multivitamins] 1 cap PO DAILY 06/02/19 [History Confirmed 06/02/19 ] PMH/Surg Hx/FS Hx/Imm Hx Previously Healthy: Yes - Surgical History Surgical History: Yes Surgery Procedure, Year, and Place: YOUNG CHILD [place]ENDECTOMY [place]. 1959 [place]ER [place]. 1974 [place]. 2011 LAMINE[facility]OMY [facility] [place]. eye surgery. left carotid surgery november 2018. shoulder RCT repair. left carotid artery-12/11/2018. colectomy - Family History Known Family History: Positive: Cardiac Disease, Hypertension Negative: Diabetes - Social History Alcohol Use: None Substance Use Type: None Smoking Status (MU): Never Smoked Tobacco Have You Smoked in the Last Year: No - Immunization History Most Recent Influenza Vaccination: 2016 Most Recent Tetanus Shot: 2011 Most Recent Pneumonia Vaccination: 2011 Review of Systems All Other Systems Reviewed And Are Negative: Yes Constitutional: Positive: Negative Skin: Positive: Negative Eyes: Positive: Negative ENT: Positive: Negative Respiratory: Positive: Negative Cardiovascular: Positive: Negative Gastrointestinal: Positive: Negative. Negative: Vomiting, Diarrhea Genitourinary: Positive: Negative Motor: Positive: Negative Neurovascular: Positive: Negative Musculoskeletal: Positive: Other: - see above - left lateral ankle pain Neurological: Positive: Negative Psychological: Positive: Negative Is Patient Immunocompromised?: No Physical Exam Triage Information Reviewed: Yes Appearance: Well-Appearing - very pleasant. sitting in WC Vital Signs: Initial Vital Signs Temp 98.7 F 06/02/19 16:02 Pulse 71 06/02/19 16:02 Resp 18 06/02/19 16:02 BP 153/67 06/02/19 16:02 Pulse Ox 100 06/02/19 16:02 Vital Signs Reviewed: Yes Eye Exam: Normal ENT Exam: Normal ENT: Positive: Other - mmm Neck exam: Normal Neck: Positive: Supple Respiratory Exam: Normal Respiratory: Positive: Lungs clear, Normal breath sounds Cardiovascular Exam: Normal Cardiovascular: Positive: RRR Abdominal Exam: Normal Abdomen Description: Positive: Nontender, Soft Musculoskeletal: Positive: Other: - left ankle w/ +1 pitting edema, which is equal to the right. slight tenderness over maleoulus and left mid tibia (slight abrasion oevrlying). ? minimal lateral ankle bruising. FROM toes. no metatarsal tnederness either plantar or frontal. +2 DP/PT b/l. sens intact to LT. -b/l legs w/ quad muscle atrophy w/ left atrophy > right Psychological Exam: Normal Skin Exam: Normal Lower Extremity Course/Dx - Course Course Of Treatment: xray left ankle and tibia - neg frx. +vascular calcifications - disc watching for sore ad circulation issues. -discussed extensively importance of HC PT or fall prevention PT outpt. Dtrs are on board with evi arreola agreeable. - Differential Dx/Diagnosis Differential Diagnosis/HQI/PQRI: Fracture (Closed), Sprain, Strain, Tendonitis Provider Diagnosis: Left ankle sprain Discharge ED - Sign-Out/Discharge Documenting (check all that apply): Patient Departure All imaging exams completed and their final reports reviewed: Yes - Discharge Plan Condition: Stable Disposition: HOME Patient Education Materials: Ankle Sprain (ED), Fall Prevention for Older Adults (ED) Referrals: Jossie Mc PA [Primary Care Provider] - 1 Week Additional Instructions: -Ice and rest. walker can be helpful for walking with painful ankle. We atlked about the importance of fall prevention PT specifically with home care PT. -There were no fractures seen on the xray per the radiologist. Your PCP should be able to get these reports as well. - Billing Disposition and Condition Condition: STABLE Disposition: Home
[2019-06-02 18:08] VITALS: BP 108/51
== END 2019-06-02 18:30 | disposition home or self-care (01) ==
LOC: UCCORT 13:30
DX: S93.402A Sprain of unspecified ligament of left ankle, initial encounter (principal); Z88.1 Allergy status to other antibiotic agents; Z88.0 Allergy status to penicillin; Z88.8 Allergy status to other drugs, medicaments and biological substances; Z88.2 Allergy status to sulfonamides; X50.1XXA Overexertion from prolonged static or awkward postures, initial encounter; Y93.89 Activity, other specified; Y92.9 Unspecified place or not applicable
CPT/HCPCS: 99212; G0463